=== PATIENT | female | born 1985 | race African-American/Black ===

== ENCOUNTER 2016-10-20 11:15 | Emergency (ER) | payer OTHER ==
[~2016-10-20] VITALS: Ht 180.3 cm; Wt 127.0 kg
[~2016-10-20 11:15] MED LIST: CLON0.1T PO; CLON0.2T PO; HYDR2AMP3 IJ; LISI40TA PO; METO25TA4 PO; METO25TA9 PO; OMEP40CA5 PO; ONDA4TAB10 PO; ONDA4TAB10 SL; TRAM50TA PO
[2016-10-20] MEDS ORDERED: IV NORMAL SALINE 1000ML BAG 1,000 ML IV ONE (12:30)
--- NOTE | 2016-10-20 12:44 | PHYS DOC ---
Past Medical History Past Medical History: GERD, Hypertension Additional Past Medical Histor: Cyclic vomiting-"Never diagnosed w/but that's what they have been saying." Past Surgical History: Cholecystectomy, Other Additional Past Surgical Histo: EGD. Additional Information: PT REPORTS 1 PPD Alcohol Use: None Drug Use: Marijuana Adult General Chief Complaint Chief Complaint: FLU SYMPTOM HPI HPI 30-year-old female who presents with significant cough and chest pain with deep breathing with mild shortness of breath as well. Patient does state she was seen Tuesday at [facility] for her symptoms and had blood work drawn but was ultimately sent home. Patient was not swabbed for the flu at that time. She states several days later now her symptoms have gotten worse and she has significant chest pain with deep breathing. She states she has history of cyclic vomiting syndrome as well as reflux disease. She denies any history of heart problems. Patient states she is a nonsmoker. She reports significant pain to her lower left rib margin with deep breathing and coughing. She has had little to eat or drink today because of her nausea. She denies any abdominal pain. Review of Systems Review of Systems Constitutional: Denies fever or chills [] Eyes: Denies change in visual acuity, redness, or eye pain [] HENT: Denies nasal congestion or sore throat [] Respiratory: Denies cough or shortness of breath [] Cardiovascular: No additional information not addressed in HPI [] GI: Denies abdominal pain, nausea, vomiting, bloody stools or diarrhea [] : Denies dysuria or hematuria [] Musculoskeletal: Denies back pain or joint pain [] Integument: Denies rash or skin lesions [] Neurologic: Denies headache, focal weakness or sensory changes [] Endocrine: Denies polyuria or polydipsia [] Current Medications Current Medications Current Medications Medications (Trade) Dose Ordered Sig/Benita Start Time Stop Time Status Last Admin Dose Admin Albuterol/ Ipratropium (Duoneb) 3 ml 1X ONCE 10/20/16 13:00 10/20/16 13:01 DC 10/20/16 12:52 3 ML Fentanyl Citrate (Fentanyl 2ml Vial) 50 mcg 1X ONCE 10/20/16 12:45 10/20/16 12:46 DC Ketorolac Tromethamine (Toradol Im) 60 mg 1X ONCE 10/20/16 14:15 10/20/16 14:16 DC 10/20/16 14:33 60 MG Ondansetron HCl (Zofran Odt) 4 mg 1X ONCE 10/20/16 14:15 10/20/16 14:16 DC 10/20/16 13:57 4 MG Ondansetron HCl (Zofran) 4 mg 1X ONCE 10/20/16 12:45 10/20/16 12:46 DC Oseltamivir Phosphate (Tamiflu) 75 mg 1X STAT 10/20/16 13:15 10/20/16 13:17 DC 10/20/16 13:49 75 MG Potassium Chloride (Klor-Con) 40 meq 1X ONCE 10/20/16 14:15 10/20/16 14:16 DC 10/20/16 14:32 40 MEQ Sodium Chloride (Iv Sodium Chloride 0.9% 1000ml Bag) 1,000 ml @ 1,000 mls/hr 1X ONCE 10/20/16 12:30 10/20/16 13:29 DC Allergies Allergies Allergies Coded Allergies Type Severity Reaction Last Updated Verified metoclopramide HCl Allergy Intermediate 01/21/14 Yes morphine Allergy Intermediate tolerates DILAUDID 12/19/15 Yes Physical Exam Physical Exam Constitutional: Well developed, well nourished, no acute distress, non-toxic appearance. [] HENT: Normocephalic, atraumatic, bilateral external ears normal, oropharynx moist, no oral exudates, nose normal. [] Eyes: PERRLA, EOMI, conjunctiva normal, no discharge. [] Neck: Normal range of motion, no tenderness, supple, no stridor. [] Cardiovascular:Heart rate regular rhythm, no murmur [] Lungs & Thorax: Bilateral breath sounds clear to auscultation [] Abdomen: Bowel sounds normal, soft, no tenderness, no masses, no pulsatile masses. [] Skin: Warm, dry, no erythema, no rash. [] Back: No tenderness, no CVA tenderness. [] Extremities: No tenderness, no cyanosis, no clubbing, ROM intact, no edema. [] Neurologic: Alert and oriented X 3, normal motor function, normal sensory function, no focal deficits noted. [] Psychologic: Affect normal, judgement normal, mood normal. [] Current Patient Data Vital Signs Vital Signs Date Time Temp Pulse Resp B/P Pulse Ox O2 Delivery O2 Flow Rate FiO2 10/20/16 12:53 Room Air 10/20/16 11:50 98.7 125 20 168/106 99 98.7 Lab Values Laboratory Tests Test 10/20/16 12:21 10/20/16 12:35 10/20/16 13:04 POC Urine HCG, Qualitative Hcg negative (Negative) Influenza Type A Antigen Positive (NEGATIVE) Influenza Type B Antigen Positive (NEGATIVE) White Blood Count 11.4x10^3/uL (4.0-11.0) H Red Blood Count 4.97x10^6/uL (3.50-5.40) Hemoglobin 16.1g/dL (12.0-15.5) H Hematocrit 47.5% (36.0-47.0) H Mean Corpuscular Volume 96fL (79-100) Mean Corpuscular Hemoglobin 32pg (25-35) Mean Corpuscular Hemoglobin Concent 34g/dL (31-37) Red Cell Distribution Width 13.1% (11.5-14.5) Platelet Count 311x10^3/uL (140-400) Neutrophils (%) (Auto) 67% (31-73) Lymphocytes (%) (Auto) 22% (24-48) L Monocytes (%) (Auto) 10% (0-9) H Eosinophils (%) (Auto) 0% (0-3) Basophils (%) (Auto) 1% (0-3) Neutrophils # (Auto) 7.7x10^3uL (1.8-7.7) Lymphocytes # (Auto) 2.4x10^3/uL (1.0-4.8) Monocytes # (Auto) 1.1x10^3/uL (0.0-1.1) Eosinophils # (Auto) 0.0x10^3/uL (0.0-0.7) Basophils # (Auto) 0.1x10^3/uL (0.0-0.2) Sodium Level 139mmol/L (136-145) Potassium Level 3.0mmol/L (3.5-5.1) L Chloride Level 101mmol/L (98-107) Carbon Dioxide Level 21mmol/L (21-32) Anion Gap 17 (6-14) H Blood Urea Nitrogen 9mg/dL (7-20) Creatinine 0.7mg/dL (0.6-1.0) Estimated GFR (Cockcroft-Gault) 117.3 Glucose Level 122mg/dL (70-99) H Calcium Level 9.6mg/dL (8.5-10.1) Laboratory Tests 10/20/16 13:04 Laboratory Tests 10/20/16 13:04 EKG EKG [] Radiology/Procedures Radiology/Procedures [] Course & Med Decision Making Course & Med Decision Making Pertinent Labs and Imaging studies reviewed. (See chart for details) 70-year-old female had flu swabs are positive for influenza a for which Tamiflu was ordered. She had a hypokalemia of 3.0 for which potassium was replaced. Multiple times at IV access were unable to be obtained. The patient is tolerating by mouth after Zofran. She was given an IM injection of Toradol. Upon my final reassessment the patient is in no acute distress and is able to tolerate oral fluids. She'll be safe to be discharged with close follow-up. I' ll be discharging him with a prescription for Tamiflu and Zofran and a brief course of pain control. Dragon Disclaimer Dragon Disclaimer This electronic medical record was generated, in whole or in part, using a voice recognition dictation system. Departure Departure Impression: Primary Impression: Vomiting Additional Impressions: Influenza A Myalgia Disposition: 01 HOME, SELF-CARE Admitting Physician: Other Condition: IMPROVED Referrals: UNKNOWN PCP NAME (PCP) Patient Instructions: Influenza A (H1N1), Nausea and Vomiting, [id number] Additional Instructions: Please follow up with your primary doctor in the next 2-3 days regarding your recent influenza virus. Take your tamiflu and medications as prescribed. Continue to drink plenty of fluids. Scripts Hydrocodone/Apap 5-325 ([place] 5-325 Tablet)1 Each Tablet1 Tab PO PRN Q6HRS PRN PAIN #10 TAB Ref 0 Prov:NAHUM ALAMO DO 10/20/16 Ondansetron Hcl (Zofran)4 Mg Tablet4 Mg PO BID PRN NAUSEA/VOMITING #14 TAB Prov:NAHUM ALAMO DO 10/20/16 Oseltamivir Phosphate (Tamiflu)75 Mg Ctjtoba69 Mg PO DAILY FLU #9 TAB Ref 0 Prov:NAHUM ALAMO DO 10/20/16 Problem Qualifiers NAHUM ALAMO DO Oct 20, 2016 12:44
[2016-10-20] MEDS ORDERED: FENTANYL PF 100 MCG/2 ML VIAL. IV ONE (12:45)
[2016-10-20] MEDS ORDERED: ONDANSETRON PF 4 MG/2 ML VIAL. IV ONE (12:45)
[2016-10-20] MEDS ORDERED: IPRATRPIUM/ALBUTEROL 0.5/2.5MG 3 ML NEBU. NEB ONE (13:00)
--- NOTE | 2016-10-20 13:00 | RAD ---
INDICATION: chest pain COMPARISON: 12/19/2015 FINDINGS: Single view of chest obtained. No definite focal airspace consolidation or edema. Cardiac silhouette is borderline prominent. No grossly displaced acute appearing fracture. IMPRESSION: No focal airspace consolidation or edema.
[2016-10-20 13:12] LABS: OBC FLU VALID
[2016-10-20] MEDS ORDERED: OSELTAMIVIR 75 MG CAPSULE PO STA (13:15)
[2016-10-20 13:22] LABS: BASO # 0.1 x10^3/uL (0.0-0.2); BASO % 1 % (0-3); EOS % 0 % (0-3); HEMATOCRIT 47.5 % (36.0-47.0); HEMOGLOBIN 16.1 g/dL (12.0-15.5); LYMPH # 2.4 x10^3/uL (1.0-4.8); LYMPH % 22 % (24-48); MEAN CORPUSCULAR HEMOGLOBIN 32 pg (25-35); MEAN CORPUSCULAR HGB CONC 34 g/dL (31-37); MEAN CORPUSCULAR VOLUME 96 fL (79-100); MONO % 10 % (0-9); NEUT % 67 % (31-73); PLATELET COUNT 311 x10^3/uL (140-400); RED BLOOD COUNT 4.97 x10^6/uL (3.50-5.40); RED CELL DISTRIBUTION WIDTH 13.1 % (11.5-14.5); WHITE BLOOD COUNT 11.4 x10^3/uL (4.0-11.0)
[2016-10-20 13:34] LABS: CALCIUM 9.6 mg/dL (8.5-10.1); CREATININE 0.7 mg/dL (0.6-1.0); GFR 117.3
[2016-10-20] MEDS ORDERED: ONDANSETRON ODT 4 MG TAB.RAPDIS ONE (13:55)
[2016-10-20] MEDS ORDERED: POTASSIUM CHLORIDE 20 MEQ TABLET.ER. PO ONE (14:15)
[2016-10-20] MEDS ORDERED: KETOROLAC TROMETHAMINE 60 MG/2 ML SYRINGE. IM ONE (14:15)
[2016-10-20] MEDS ORDERED: ONDANSETRON ODT 4 MG TAB.RAPDIS PO ONE (14:15)
[2016-10-20] MEDS ORDERED: OSEL75CA PO (14:41)
[2016-10-20] MEDS ORDERED: ONDA4TAB7 PO (14:41)
[2016-10-20] MEDS ORDERED: HYDR-971 PO (14:41)
[2016-10-20 14:48] VITALS: BP 193/122
== END 2016-10-20 15:00 | disposition home or self-care (01) ==
LOC: ER 11:15
DX: J09.X2 Influenza due to identified novel influenza A virus with other respiratory manifestations (principal); R11.10 Vomiting, unspecified; R07.1 Chest pain on breathing; I10 Essential (primary) hypertension; F12.10 Cannabis abuse, uncomplicated; F17.200 Nicotine dependence, unspecified, uncomplicated; K21.9 Gastro-esophageal reflux disease without esophagitis; Z90.49 Acquired absence of other specified parts of digestive tract; Z88.5 Allergy status to narcotic agent; Z88.8 Allergy status to other drugs, medicaments and biological substances
CPT/HCPCS: 36415; 71010; 80048; 81025; 85027; 87804; 94250; 94640; 96372; 99285; J1885; J7620; Q0162

== ENCOUNTER 2016-11-20 15:12 | Emergency (ER) | payer OTHER ==
[~2016-11-20] VITALS: Ht 177.8 cm; Wt 124.7 kg
[~2016-11-20 15:12] MED LIST changes: +HYDR-971 PO; +ONDA4TAB7 PO; +OSEL75CA PO
[2016-11-20] MEDS ORDERED: IV NORMAL SALINE 1000ML BAG 1,000 ML IV SCH (15:57)
[2016-11-20] MEDS ORDERED: PROCHLORPERAZINE 10 MG/2 ML VIAL. IV ONE (16:00)
[2016-11-20] MEDS ORDERED: DIPHENHYDRAMINE 50 MG/ML VIAL IVP ONE (16:00)
[2016-11-20] MEDS ORDERED: HYDROMORPHONE 2 MG/ML VIAL. IV ONE (16:00)
[2016-11-20 16:09] LABS: BILIRUBIN,URINE SMALL (NEG); GLUCOSE,URINE NEGATIVE (NEG); NITRITE,URINE NEGATIVE (NEG); PROTEIN,URINE 100 mg/dL (NEG-TRACE)
--- NOTE | 2016-11-20 16:10 | ED.ADGEN ---
Past Medical History Past Medical History: GERD, Hypertension, Seizure, Other Additional Past Medical Histor: Cyclic vomiting Past Surgical History: Cholecystectomy, Other Additional Past Surgical Histo: EGD. Additional Information: 1 PPD Alcohol Use: None Drug Use: Marijuana Adult General Chief Complaint Chief Complaint: HEADACHE HPI HPI Patient is a 31 year old female presents emergency department complaining of a frontal headache which she describes as "throbbing" as well as nausea and back pain. Patient states that she has had a headache for 3 days. She has tried Tylenol and ibuprofen without success. Patient states that she did make a phone call to her neurologist but has not heard back. She tells me that at least one week ago he started her on a new seizure medicine and had warned her that headaches to be a possible side effect. She has not taken any seizure medicine for 4 days. She denies any other trauma or injury. Review of Systems Review of Systems Constitutional: Denies fever or chills. [] Eyes: Denies change in visual acuity. [] HENT: Denies nasal congestion or sore throat. [] Respiratory: Denies cough or shortness of breath. [] Cardiovascular: Denies chest pain or edema. [] GI: Denies abdominal pain, nausea, vomiting, bloody stools or diarrhea. [] : Denies dysuria. [] Musculoskeletal: Denies back pain or joint pain. [] Integument: Denies rash. [] Neurologic: Denies headache, focal weakness or sensory changes. [] Endocrine: Denies polyuria or polydipsia. [] Lymphatic: Denies swollen glands. [] Psychiatric: Denies depression or anxiety. [] Current Medications Current Medications Current Medications Medications (Trade) Dose Ordered Sig/Benita Start Time Stop Time Status Last Admin Dose Admin Diphenhydramine HCl (Benadryl) 25 mg 1X ONCE 11/20/16 16:30 11/20/16 16:31 DC 11/20/16 17:02 25 MG Hydromorphone HCl (Dilaudid) 2 mg 1X ONCE 11/20/16 16:30 18 16:31 DC 11/20/16 17:09 2 MG Ondansetron HCl (Zofran Odt) 8 mg 1X ONCE 11/20/16 16:30 11/20/16 16:31 DC 11/20/16 17:15 8 MG Prochlorperazine Edisylate (Compazine) 10 mg 1X ONCE 11/20/16 16:30 11/20/16 16:31 DC 11/20/16 17:02 10 MG Sodium Chloride (Iv Sodium Chloride 0.9% 1000ml Bag) 1,000 ml @ 1,000 mls/hr Q1H 11/20/16 15:57 11/20/16 16:56 DC Allergies Allergies Allergies Coded Allergies Type Severity Reaction Last Updated Verified metoclopramide HCl Allergy Intermediate 01/21/14 Yes morphine Allergy Intermediate tolerates DILAUDID 12/19/15 Yes Physical Exam Physical Exam Constitutional: Well developed, well nourished, no acute distress, non-toxic appearance. [] HENT: Normocephalic, atraumatic, bilateral external ears normal, oropharynx moist, no oral exudates, nose normal. [] Eyes: PERRLA, EOMI, conjunctiva normal, no discharge. [] Neck: Normal range of motion, no tenderness, supple, no stridor. [] Cardiovascular:Heart rate regular rhythm, no murmur [] Lungs & Thorax: Bilateral breath sounds clear to auscultation [] Abdomen: Bowel sounds normal, soft, no tenderness, no masses, no pulsatile masses. [] Skin: Warm, dry, no erythema, no rash. [] Back: No tenderness, no CVA tenderness. [] Extremities: No tenderness, no cyanosis, no clubbing, ROM intact, no edema. [] Neurologic: Alert and oriented X 3, normal motor function, normal sensory function, no focal deficits noted. [] Psychologic: Affect normal, judgement normal, mood normal. [] Current Patient Data Vital Signs Vital Signs Date Time Temp Pulse Resp B/P Pulse Ox O2 Delivery O2 Flow Rate FiO2 11/20/16 17:09 17 97 Room Air 11/20/16 15:17 98.7 107 167/124 98.7 Lab Values Laboratory Tests Test 11/20/16 15:30 Urine Collection Type Void Urine Color Dk yellow Urine Clarity Turbid Urine pH 6.0 Urine Specific [place] >=1.030 Urine Protein 100mg/dL (NEG-TRACE) Urine Glucose (UA) Negativemg/dL (NEG) Urine Ketones (Stick) Tracemg/dL (NEG) Urine Blood Large (NEG) Urine Nitrite Negative (NEG) Urine Bilirubin Small (NEG) Urine Urobilinogen Dipstick 1.0mg/dL (0.2 mg/dL) Urine Leukocyte Esterase Small (NEG) Urine RBC Occ/HPF (0-2) Urine WBC 1-4/HPF (0-4) Urine Squamous Epithelial Cells Many/LPF Urine Bacteria Many/HPF (0-FEW) Urine Hyaline Casts Few/HPF Urine Mucus Marked/LPF Urine Opiates Screen Neg (NEG) Urine Methadone Screen Neg (NEG) Urine Barbiturates Neg (NEG) Urine Phencyclidine Screen Neg (NEG) Urine Amphetamine/Methamphetamine Neg (NEG) Urine Benzodiazepines Screen Neg (NEG) Urine Cocaine Screen Neg (NEG) Urine Cannabinoids Screen Pos (NEG) Urine Ethyl Alcohol Neg (NEG) EKG EKG [] Radiology/Procedures Radiology/Procedures [] Course & Med Decision Making Course & Med Decision Making Pertinent Labs and Imaging studies reviewed. (See chart for details) Initially, upon entering the room the patient was laying still and quiet with her eyes covered. Once she was aware that I was in the room and I began speaking to her she began to writhe around in the bed stating that the pain was unbearable. She states that as she starts to feel ill she quickly comes to the hospital. She states she comes to [place] and frequently but also has stopped at other hospitals. After multiple failed attempts at IV we did settle on using IM Dilaudid, Benadryl, Compazine, and Zofran ODT with good effect. The patient states that she feels significantly better and is thankful for help. She will be discharged home with follow-up directions as well as supportive care instructions. [] Dragon Disclaimer Dragon Disclaimer This electronic medical record was generated, in whole or in part, using a voice recognition dictation system. TU MAYFIELD MD Nov 20, 2016 16:09
[2016-11-20 16:18] LABS: BACTERIA,URINE MANY /HPF (0-FEW); RBC,URINE OCC /HPF (0-2); SQUAMOUS EPITHELIAL CELL,UR MANY /LPF
[2016-11-20 16:22] LABS: BARBITURATES NEG (NEG); BENZODIAZEPINES NEG (NEG); CANNABINOIDS POS (NEG); COCAINE NEG (NEG); METHADONE NEG (NEG); OPIATES NEG (NEG); PHENCYCLIDINE NEG (NEG)
[2016-11-20 16:24] LABS: ETHANOL, URINE NEG (NEG)
[2016-11-20] MEDS ORDERED: DIPHENHYDRAMINE 50 MG/ML VIAL IM ONE (16:30)
[2016-11-20] MEDS ORDERED: ONDANSETRON ODT 4 MG TAB.RAPDIS PO ONE (16:30)
[2016-11-20] MEDS ORDERED: HYDROMORPHONE 2 MG/ML VIAL. IM ONE (16:30)
[2016-11-20] MEDS ORDERED: PROCHLORPERAZINE 10 MG/2 ML VIAL. IM ONE (16:30)
[2016-11-20] MEDS ORDERED: ONDA4TAB10 SL (18:25)
[2016-11-20] MEDS ORDERED: HYDR-971 PO (18:25)
[2016-11-20 18:30] VITALS: BP 151/100
== END 2016-11-20 18:35 | disposition home or self-care (01) ==
LOC: ER 15:18
DX: R51 Headache (principal); R11.10 Vomiting, unspecified; M54.9 Dorsalgia, unspecified; K21.9 Gastro-esophageal reflux disease without esophagitis; I10 Essential (primary) hypertension; Z90.49 Acquired absence of other specified parts of digestive tract; F17.200 Nicotine dependence, unspecified, uncomplicated; F12.10 Cannabis abuse, uncomplicated; Z88.5 Allergy status to narcotic agent; Z88.8 Allergy status to other drugs, medicaments and biological substances
CPT/HCPCS: 80305; 81001; 87086; 96372; 99284; J0780; J1170; J1200; Q0162; G0481

== ENCOUNTER 2017-02-04 14:00 | Inpatient (IN) | payer OTHER ==
[~2017-02-04] VITALS: Ht 180.3 cm; Wt 124.7 kg
[2017-02-04] MEDS ORDERED: IV NORMAL SALINE 1000ML BAG 1,000 ML IV ONE (14:30)
[2017-02-04] MEDS ORDERED: LABETALOL 20 MG/4 ML DISP.SYRIN. IVP ONE ×2 (14:30→15:30)
[2017-02-04] MEDS ORDERED: oxyCODONE/APAP 5/325 1 TAB TABLET PO ONE (14:30)
[2017-02-04] MEDS ORDERED: PROMETHAZINE IM 25 MG/ML VIAL IM ONE (14:30)
[2017-02-04] MEDS ORDERED: HALOPERIDOL LACTATE 5 MG/ML VIAL. IVP ONE (14:30)
[2017-02-04 14:35] LABS: BASO # 0.1 x10^3/uL (0.0-0.2); BASO % 1 % (0-3); EOS % 0 % (0-3); HEMATOCRIT 45.8 % (36.0-47.0); HEMOGLOBIN 15.7 g/dL (12.0-15.5); LYMPH # 4.6 x10^3/uL (1.0-4.8); LYMPH % 35 % (24-48); MEAN CORPUSCULAR HEMOGLOBIN 34 pg (25-35); MEAN CORPUSCULAR HGB CONC 34 g/dL (31-37); MEAN CORPUSCULAR VOLUME 98 fL (79-100); MONO % 8 % (0-9); NEUT % 56 % (31-73); PLATELET COUNT 279 x10^3/uL (140-400); RED BLOOD COUNT 4.67 x10^6/uL (3.50-5.40); RED CELL DISTRIBUTION WIDTH 13.1 % (11.5-14.5); WHITE BLOOD COUNT 13.3 x10^3/uL (4.0-11.0)
[2017-02-04 14:36] LABS: BILIRUBIN,URINE SMALL (NEG); GLUCOSE,URINE NEGATIVE (NEG); NITRITE,URINE NEGATIVE (NEG); PH,URINE 6.5; PROTEIN,URINE 30 mg/dL (NEG-TRACE)
[2017-02-04 15:05] LABS: ALBUMIN 4.4 g/dL (3.4-5.0); ALBUMIN/GLOBULIN RATIO 1.1 (1.0-1.7); CALCIUM 9.9 mg/dL (8.5-10.1); CREATININE 0.8 mg/dL (0.6-1.0); MAGNESIUM 2.1 mg/dL (1.8-2.4); TOTAL BILIRUBIN 1.1 mg/dL (0.2-1.0); TOTAL PROTEIN 8.3 g/dL (6.4-8.2)
[2017-02-04 15:07] LABS: BARBITURATES NEG (NEG); BENZODIAZEPINES NEG (NEG); CANNABINOIDS POS (NEG); COCAINE NEG (NEG); METHADONE NEG (NEG); OPIATES NEG (NEG); PHENCYCLIDINE NEG (NEG)
[2017-02-04 15:07] LABS: POTASSIUM 2.7 mmol/L (3.5-5.1)
[2017-02-04 15:15] LABS: RBC,URINE 0 /HPF (0-2)
[2017-02-04] MEDS ORDERED: POTASSIUM CL 20MEQ D5-0.45NACL 1,000 ML IV ONE (15:15)
[2017-02-04] MEDS ORDERED: POTASSIUM CHLORIDE 20 MEQ TABLET.ER. PO ONE (15:15)
[2017-02-04 15:18] LABS: BACTERIA,URINE FEW /HPF (0-FEW); SQUAMOUS EPITHELIAL CELL,UR FEW /LPF
[2017-02-04] MEDS ORDERED: LOSARTAN POTASSIUM 50 MG TABLET. PO STA (15:44)
[2017-02-04] MEDS ORDERED: amLODIPine BESYLATE 5 MG TABLET PO ONE (15:45)
[2017-02-04] MEDS ORDERED: ONDANSETRON PF 4 MG/2 ML VIAL. IV PRN ×2 (15:45→16:31)
[2017-02-04] MEDS ORDERED: cloNIDine HCL 0.1 MG TABLET PO ONE (16:00)
--- NOTE | 2017-02-04 16:40 | PDOC1 ---
History and Physical Date of Admission Date of Admission DATE: 02/04/17 TIME: 16:34 Identification/Chief Complaint Chief Complaint vomiting, abd pain Problems: Source Source: Caregiver, Chart review, Patient History of Present Illness History of Present Illness 31 y.o obese AA female known cyclic vomiter, used to see [address] - but last seen 2014 (fired), and needs to find new PCP per pt account,. Today, onset of another cyclic vomiting attack, She admits she gets attacks if she does not take her nausea meds, she could not tell me what kind, BP systolic 200s, also tells me did not take her BP meds (all in a box) and she could not find that box. GAve labetolol at ER, awaiting response, K critically low 2 plus, CRea ok, NO diarrhea, non diabetic, Requests narcs for pain Past Medical History Cardiovascular: HTN Pulmonary: Asthma GI: GERD, Other Endocrine: Other Past Surgical History Past Surgical History: Cholecystectomy, Tonsillectomy Family History Family History: No Significant (reviewed) Social History Smoke: No ALCOHOL: none Drugs: None Current Medications Current Medications Current Medications Sodium Chloride 1,000 ml @ 1,000 mls/hr 1X ONCE IV Last administered on 14:33; Start 02/04/17 at 14:30; Stop 02/04/17 at 15:29; Status DC Haloperidol Lactate (Haldol) 3 mg 1X ONCE IVP Last administered on 02/04/17 14 :34; Start 02/04/17 at 14:30; Stop 02/04/17 at 14:31; Status DC Promethazine HCl (Phenergan Im) 25 mg 1X ONCE IM Last administered on 14:32; Start 02/04/17 at 14:30; Stop 02/04/17 at 14:31; Status DC Labetalol HCl (Normodyne) 20 mg 1X ONCE IVP Last administered on 02/04/17 14: 36; Start 02/04/17 at 14:30; Stop 02/04/17 at 14:31; Status DC Oxycodone/ Acetaminophen (Percocet 5/325) 2 tab 1X ONCE PO Last administered on 02/04/17 14:48; Start 02/04/17 at 14:30; Stop 02/04/17 at 14:31; Status DC Potassium Chloride (Klor-Con) 40 meq 1X ONCE PO Last administered on 02/04/17 15:24; Start 02/04/17 at 15:15; Stop 02/04/17 at 15:16; Status DC Potassium Chloride/Dextrose/ Sod Cl 1,000 ml @ 500 mls/hr 1X ONCE IV Last administered on 02/04/17 15:25; Start 02/04/17 at 15:15; Stop 02/04/17 at 17:14 Labetalol HCl (Normodyne) 20 mg 1X ONCE IVP Last administered on 02/04/17 15: 23; Start 02/04/17 at 15:30; Stop 02/04/17 at 15:31; Status DC Ondansetron HCl (Zofran) 4 mg PRN Q8HRS PRN IV NAUSEA/VOMITING; Start 02/04/17 at 15:45; Stop 02/05/17 at 15:44 Clonidine HCl (Catapres) 0.2 mg 1X ONCE PO Last administered on 02/04/17 16:20 ; Start 02/04/17 at 16:00; Stop 02/04/17 at 16:01; Status DC Losartan Potassium (Cozaar) 50 mg 1X STAT PO Last administered on 02/04/17 16: 20; Start 02/04/17 at 15:44; Stop 02/04/17 at 15:52; Status DC Amlodipine Besylate (Norvasc) 10 mg 1X ONCE PO Last administered on 02/04/17 16:21; Start 02/04/17 at 15:45; Stop 02/04/17 at 15:52; Status DC Active Scripts Active Zofran Odt (Ondansetron) 4 Mg Tab.rapdis 1 Tab SL Q8HRS PRN [place] 5-325 Tablet (Acetaminophen/Hydrocodone Bitart) 1 Each Tablet 1-2 Tab PO Q6HRS PRN [place] 5-325 Tablet (Acetaminophen/Hydrocodone Bitart) 1 Each Tablet 1 Tab PO PRN Q6HRS PRN Zofran (Ondansetron Hcl) 4 Mg Tablet 4 Mg PO BID PRN Tamiflu (Oseltamivir Phosphate) 75 Mg Capsule 75 Mg PO DAILY Zofran Odt (Ondansetron) 4 Mg Tab.rapdis 1 Tab SL Q8HRS Zofran Odt (Ondansetron) 4 Mg Tab.rapdis 4 Mg PO Q8HRS PRN Reported Clonidine Hcl 0.1 Mg Tablet 0.1 Mg PO DAILY Omeprazole 40 Mg Capsule.dr 40 Mg PO DAILY Lisinopril 40 Mg Tablet 40 Mg PO DAILY Allergies Allergies: Coded Allergies: metoclopramide HCl (Verified Allergy, Intermediate, 01/21/14) morphine (Verified Allergy, Intermediate, tolerates DILAUDID, 12/19/15) ROS General: No: Chills, Night Sweats, Fatigue, Malaise, Appetite, Other PSYCHOLOGICAL ROS: No: Anxiety, Behavioral Disorder, Concentration difficultie , Decreased libido, Depression, Disorientation, Hallucinations, Hostility, Irritablity, Memory difficulties, Mood Swings, Obsessive thoughts, Physical abuse, Sexual abuse, Sleep disturbances, Suicidal ideation, Other Eyes: No Blurry vision, No Decreased vision, No Double vision, No Dry eyes, No Excessive tearing, No Eye Pain, No Itchy Eyes, No Loss of vision, No Photophobia , No Scotomata, No Uses contacts, No Uses glasses, No Other HEENT: No: Heacaches, Visual Changes, Hearing change, Nasal congestion, Nasal discharge, Oral lesions, Sinus pain, Sore Throat, Epistaxis, Sneezing, Snoring, Tinnitus, Vertigo, Vocal changes, Other ALLERGY AND IMMUNOLOGY: No: Hives, Insect Bite Sensitivity, Itchy/Watery Eyes, Nasal Congestion, Post Nasal Drip, Seasonal Allergies, Other Hematological and Lymphatic: No: Bleeding Problems, Blood Clots, Blood Transfusions, Brusing, Night Sweats, Pallor, Swollen Lymph Nodes, Other ENDOCRINE: No: Breast Changes, Galactorrhea, Hair Pattern Changes, Hot Flashes , Malaise/lethargy, Mood Swings, Palpitations, Polydipsia/polyuria, Skin Changes , Temperature Intolerance, Unexpected Weight Changes, Other Breast: No New/Changing Breast Lumps, No Nipple changes, No Nipple discharge, No Other Respiratory: No: Cough, Hemoptysis, Orthopnea, Pleuritic Pain, Shortness of breath, SOB with excertion, Sputum Changes, Stridor, Tachypnea, Wheezing, Other Cardiovascular: No Chest Pain, No Palpitations, No Orthopnea, No Paroxysmal Noc. Dyspnea, No Edema, No Lt Headedness, No Other Gastrointestinal: Yes Nausea, Yes Vomiting, Yes Abdominal Pain Genitourinary: No Dysuria, No Frequency, No Incontinence, No Hematuria, No Retention, No Discharge, No Urgency, No Pain, No Flank Pain, No Other, No , No , No , No , No , No , No Musculoskeletal: No Gait Disturbance, No Joint Pain, No Joint Stiffness, No Joint Swelling, No Muscle Pain, No Muscular Weakness, No Pain In:, No Swelling In:, No Other Neurological: No Behavorial Changes, No Bowel/Bladder ControlChng, No Confusion , No Dizziness, No Gait Disturbance, No Headaches, No Impaired Coord/balance, No Memory Loss, No Numbness/Tingling, No Seizures, No Speech Problems, No Tremors, No Visual Changes, No Weakness, No Other Skin: No Dry Skin, No Eczema, No Hair Changes, No Lumps, No Mole Changes, No Mottling, No Nail Changes, No Pruritus, No Rash, No Skin Lesion Changes, No Other, No Acne Physical Exam General: Alert, Oriented X3, Cooperative, No acute distress, moderate distress , Other (clutching her stomach, bending forward) HEENT: Atraumatic, PERRLA, EOMI Lungs: Clear to auscultation, Normal air movement Heart: S1S2, no murmurs Cardiovascular: S1, S2 Breasts: Normal Abdomen: Soft, Other (tenderness, jumps off her bed on mild palpation epigastric area - (symptom magnification)) Rectal Exam: not examined PELVIC: Nml ext genitalia Extremities: No clubbing, No cyanosis, No edema, Normal pulses, No tenderness/ swelling Skin: No rashes, No breakdown, No significant lesion Neuro: Normal gait, Normal speech, Strength at 5/5 X4 ext, Normal tone, Sensation intact, Cranial nerves 3-12 NL, Reflexes 2+ Psych/Mental Status: Mental status NL, Mood NL Vitals Vitals Vital Signs Date Time Temp Pulse Resp B/P (MAP) Pulse Ox O2 Delivery O2 Flow Rate FiO2 02/04/17 16:32 65 18 220/133 (162) 98 Room Air 02/04/17 14:02 99.3 99.3 Labs Labs Laboratory Tests Test 02/04/17 13:21 02/04/17 14:05 02/04/17 14:25 Bedside Urine HCG, Qualitative Hcg negative (Negative) Urine Collection Type Unknown Urine Color Carito Urine Clarity Clear Urine pH 6.5 Urine Specific [place] >=1.030 Urine Protein 30 mg/dL (NEG-TRACE) Urine Glucose (UA) Negative mg/dL (NEG) Urine Ketones (Stick) 15 mg/dL (NEG) Urine Blood Negative (NEG) Urine Nitrite Negative (NEG) Urine Bilirubin Small (NEG) Urine Urobilinogen Dipstick 1.0 mg/dL (0.2 mg/dL) Urine Leukocyte Esterase Trace (NEG) Urine RBC 0 /HPF (0-2) Urine WBC 1-4 /HPF (0-4) Urine Squamous Epithelial Cells Few /LPF Urine Bacteria Few /HPF (0-FEW) Urine Mucus Mod /LPF Urine Opiates Screen Neg (NEG) Urine Methadone Screen Neg (NEG) Urine Barbiturates Neg (NEG) Urine Phencyclidine Screen Neg (NEG) Urine Amphetamine/Methamphetamine Neg (NEG) Urine Benzodiazepines Screen Neg (NEG) Urine Cocaine Screen Neg (NEG) Urine Cannabinoids Screen Pos (NEG) Urine Ethyl Alcohol Neg (NEG) White Blood Count 13.3 x10^3/uL (4.0-11.0) Red Blood Count 4.67 x10^6/uL (3.50-5.40) Hemoglobin 15.7 g/dL (12.0-15.5) Hematocrit 45.8 % (36.0-47.0) Mean Corpuscular Volume 98 fL (79-100) Mean Corpuscular Hemoglobin 34 pg (25-35) Mean Corpuscular Hemoglobin Concent 34 g/dL (31-37) Red Cell Distribution Width 13.1 % (11.5-14.5) Platelet Count 279 x10^3/uL (140-400) Neutrophils (%) (Auto) 56 % (31-73) Lymphocytes (%) (Auto) 35 % (24-48) Monocytes (%) (Auto) 8 % (0-9) Eosinophils (%) (Auto) 0 % (0-3) Basophils (%) (Auto) 1 % (0-3) Neutrophils # (Auto) 7.5 x10^3uL (1.8-7.7) Lymphocytes # (Auto) 4.6 x10^3/uL (1.0-4.8) Monocytes # (Auto) 1.0 x10^3/uL (0.0-1.1) Eosinophils # (Auto) 0.1 x10^3/uL (0.0-0.7) Basophils # (Auto) 0.1 x10^3/uL (0.0-0.2) Sodium Level 136 mmol/L (136-145) Potassium Level 2.7 mmol/L (3.5-5.1) Chloride Level 99 mmol/L (98-107) Carbon Dioxide Level 21 mmol/L (21-32) Anion Gap 16 (6-14) Blood Urea Nitrogen 8 mg/dL (7-20) Creatinine 0.8 mg/dL (0.6-1.0) Estimated GFR (Cockcroft-Gault) 100.0 BUN/Creatinine Ratio 10 (6-20) Glucose Level 109 mg/dL (70-99) Calcium Level 9.9 mg/dL (8.5-10.1) Magnesium Level 2.1 mg/dL (1.8-2.4) Total Bilirubin 1.1 mg/dL (0.2-1.0) Aspartate Amino Transf (AST/SGOT) 18 U/L (15-37) Alanine Aminotransferase (ALT/SGPT) 27 U/L (14-59) Alkaline Phosphatase 78 U/L (46-116) Creatine Kinase 135 U/L (26-192) Total Protein 8.3 g/dL (6.4-8.2) Albumin 4.4 g/dL (3.4-5.0) Albumin/Globulin Ratio 1.1 (1.0-1.7) Lipase 113 U/L (73-393) Ethyl Alcohol Level < 10 mg/dL (0-10) Laboratory Tests Test 02/04/17 13:21 02/04/17 14:05 02/04/17 14:25 Bedside Urine HCG, Qualitative Hcg negative (Negative) Urine Collection Type Unknown Urine Color Carito Urine Clarity Clear Urine pH 6.5 Urine Specific [place] >=1.030 Urine Protein 30 mg/dL (NEG-TRACE) Urine Glucose (UA) Negative mg/dL (NEG) Urine Ketones (Stick) 15 mg/dL (NEG) Urine Blood Negative (NEG) Urine Nitrite Negative (NEG) Urine Bilirubin Small (NEG) Urine Urobilinogen Dipstick 1.0 mg/dL (0.2 mg/dL) Urine Leukocyte Esterase Trace (NEG) Urine RBC 0 /HPF (0-2) Urine WBC 1-4 /HPF (0-4) Urine Squamous Epithelial Cells Few /LPF Urine Bacteria Few /HPF (0-FEW) Urine Mucus Mod /LPF Urine Opiates Screen Neg (NEG) Urine Methadone Screen Neg (NEG) Urine Barbiturates Neg (NEG) Urine Phencyclidine Screen Neg (NEG) Urine Amphetamine/Methamphetamine Neg (NEG) Urine Benzodiazepines Screen Neg (NEG) Urine Cocaine Screen Neg (NEG) Urine Cannabinoids Screen Pos (NEG) Urine Ethyl Alcohol Neg (NEG) White Blood Count 13.3 x10^3/uL (4.0-11.0) Red Blood Count 4.67 x10^6/uL (3.50-5.40) Hemoglobin 15.7 g/dL (12.0-15.5) Hematocrit 45.8 % (36.0-47.0) Mean Corpuscular Volume 98 fL (79-100) Mean Corpuscular Hemoglobin 34 pg (25-35) Mean Corpuscular Hemoglobin Concent 34 g/dL (31-37) Red Cell Distribution Width 13.1 % (11.5-14.5) Platelet Count 279 x10^3/uL (140-400) Neutrophils (%) (Auto) 56 % (31-73) Lymphocytes (%) (Auto) 35 % (24-48) Monocytes (%) (Auto) 8 % (0-9) Eosinophils (%) (Auto) 0 % (0-3) Basophils (%) (Auto) 1 % (0-3) Neutrophils # (Auto) 7.5 x10^3uL (1.8-7.7) Lymphocytes # (Auto) 4.6 x10^3/uL (1.0-4.8) Monocytes # (Auto) 1.0 x10^3/uL (0.0-1.1) Eosinophils # (Auto) 0.1 x10^3/uL (0.0-0.7) Basophils # (Auto) 0.1 x10^3/uL (0.0-0.2) Sodium Level 136 mmol/L (136-145) Potassium Level 2.7 mmol/L (3.5-5.1) Chloride Level 99 mmol/L (98-107) Carbon Dioxide Level 21 mmol/L (21-32) Anion Gap 16 (6-14) Blood Urea Nitrogen 8 mg/dL (7-20) Creatinine 0.8 mg/dL (0.6-1.0) Estimated GFR (Cockcroft-Gault) 100.0 BUN/Creatinine Ratio 10 (6-20) Glucose Level 109 mg/dL (70-99) Calcium Level 9.9 mg/dL (8.5-10.1) Magnesium Level 2.1 mg/dL (1.8-2.4) Total Bilirubin 1.1 mg/dL (0.2-1.0) Aspartate Amino Transf (AST/SGOT) 18 U/L (15-37) Alanine Aminotransferase (ALT/SGPT) 27 U/L (14-59) Alkaline Phosphatase 78 U/L (46-116) Creatine Kinase 135 U/L (26-192) Total Protein 8.3 g/dL (6.4-8.2) Albumin 4.4 g/dL (3.4-5.0) Albumin/Globulin Ratio 1.1 (1.0-1.7) Lipase 113 U/L (73-393) Ethyl Alcohol Level < 10 mg/dL (0-10) VTE Prophylaxis Ordered VTE Prophylaxis Devices: Yes VTE Pharmacological Prophylaxi: Yes Assessment/Plan Assessment/Plan 1. Cyclic vomiting episode,acute attack with CRITICAL HYPOKALEMIA 2. HTN malignant POA 3. Abdominal Pain 4. Obesity 5. NArcotic seeking behavior Plan: Admit Replace K K containing IVF Recheck K carley Include mag Liquid diet ADAT Resume home meds LAbetolol prn IF bP does not go down in the next few hrs will need gtt as this is HTN emergency Likely BP will go down with control of emesis and resumption of anti hypertensives Seen at ER Jaiden BARRIOS MD and pt SHANNEN MCKENNA MD Feb 04, 2017 16:40
[2017-02-04] MEDS ORDERED: ZOLPIDEM 5 MG TABLET. PO PRN (16:45)
[2017-02-04] MEDS ORDERED: IV NORMAL SALINE 1000ML BAG 1,000 ML IV SCH (16:45)
[2017-02-04] MEDS ORDERED: PROCHLORPERAZINE 10 MG/2 ML VIAL. IV PRN (16:45)
[2017-02-04] MEDS ORDERED: ONDANSETRON ODT 4 MG TAB.RAPDIS. PO PRN (16:45)
[2017-02-04] MEDS ORDERED: CALCIUM CARBONATE 500 MG TAB.CHEW PO PRN (16:45)
[2017-02-04] MEDS ORDERED: HYDROmorphone 2 MG/ML VIAL IVP PRN (16:45)
[2017-02-04] MEDS ORDERED: LABETALOL 20 MG/4 ML DISP.SYRIN. IVP PRN (16:45)
[2017-02-04] MEDS ORDERED: oxyCODONE/APAP 5/325 1 TAB TABLET PO PRN (16:45)
[2017-02-04] MEDS ORDERED: fentaNYL PF VIAL 100 MCG/2 ML VIAL IV PRN (16:45)
[2017-02-04] MEDS ORDERED: HYDROcodone/APAP 5/325MG 1 TAB TABLET PO PRN ×2 (16:45)
--- NOTE | 2017-02-04 16:46 | PHYS DOC ---
Past Medical History Past Medical History: GERD, Hypertension, Seizure, Other Additional Past Medical Histor: Cyclic vomiting Past Surgical History: Cholecystectomy, Other Additional Past Surgical Histo: EGD. Alcohol Use: None Drug Use: Marijuana Adult General Chief Complaint Chief Complaint: ABDOMINAL PAIN HPI HPI Patient is a 31 year old female presenting to the emergency department for evaluation of intractable nausea vomiting abdominal pain that has been going on for at least 1 week if she says she has been in and out of hospitals for the past 2 weeks. Recent hospital visit was at [facility] 2 days ago. She says that the last time that she smoked marijuana was 2 weeks ago. She says that she has a history of cyclic vomiting syndrome. Review of Systems Review of Systems Constitutional: Denies fever or chills [] Eyes: Denies change in visual acuity, redness, or eye pain [] HENT: Denies nasal congestion or sore throat [] Respiratory: Denies cough or shortness of breath [] Cardiovascular: No additional information not addressed in HPI [] GI: + abdominal pain, nausea, vomiting. No bloody stools or diarrhea [] : Denies dysuria or hematuria [] Musculoskeletal: Denies back pain or joint pain [] Integument: Denies rash or skin lesions [] Neurologic: Denies headache, focal weakness or sensory changes [] Current Medications Current Medications Current Medications Medications (Trade) Dose Ordered Sig/Benita Start Time Stop Time Status Last Admin Dose Admin Haloperidol Lactate (Haldol) 3 mg 1X ONCE 02/04/17 14:30 02/04/17 14:31 DC 02/04/17 14:34 3 MG Labetalol HCl (Normodyne) 20 mg 1X ONCE 02/04/17 15:30 02/04/17 15:31 DC 02/04/17 15:23 20 MG Oxycodone/ Acetaminophen (Percocet 5/325) 2 tab 1X ONCE 02/04/17 14:30 02/04/17 14:31 DC 02/04/17 14:48 2 TAB Potassium Chloride/Dextrose/ Sod Cl 1,000 ml @ 500 mls/hr 1X ONCE 02/04/17 15:15 02/04/17 17:14 02/04/17 15:25 500 MLS/HR Potassium Chloride (Klor-Con) 40 meq 1X ONCE 02/04/17 15:15 02/04/17 15:16 DC 02/04/17 15:24 40 MEQ Promethazine HCl (Phenergan Im) 25 mg 1X ONCE 02/04/17 14:30 02/04/17 14:31 DC 02/04/17 14:32 25 MG Sodium Chloride 1,000 ml @ 1,000 mls/hr 1X ONCE 02/04/17 14:30 02/04/17 15:29 DC 02/04/17 14:33 1,000 MLS/HR Allergies Allergies Allergies Coded Allergies Type Severity Reaction Last Updated Verified metoclopramide HCl Allergy Intermediate 01/21/14 Yes morphine Allergy Intermediate tolerates DILAUDID 12/19/15 Yes Physical Exam Physical Exam Constitutional: Well developed, well nourished, no acute distress, non-toxic appearance. [] HENT: Normocephalic, atraumatic, bilateral external ears normal, oropharynx moist, no oral exudates, nose normal. [] Eyes: PERRLA, EOMI, conjunctiva normal, no discharge. [] Neck: Normal range of motion, no tenderness, supple, no stridor. [] Cardiovascular:Heart rate regular rhythm, no murmur [] Lungs & Thorax: Bilateral breath sounds clear to auscultation [] Abdomen: Bowel sounds normal, soft, no tenderness, no masses, no pulsatile masses. [] Skin: Warm, dry, no erythema, no rash. [] Back: No tenderness, no CVA tenderness. [] Extremities: No tenderness, no cyanosis, no clubbing, ROM intact, no edema. [] Neurologic: Alert and oriented X 3, normal motor function, normal sensory function, no focal deficits noted. [] Current Patient Data Vital Signs Vital Signs Date Time Temp Pulse Resp B/P (MAP) Pulse Ox O2 Delivery O2 Flow Rate FiO2 02/04/17 15:23 83 230/115 02/04/17 15:18 11 95 02/04/17 14:46 Room Air 02/04/17 14:02 99.3 99.3 Lab Values Laboratory Tests Test 02/04/17 13:21 02/04/17 14:05 02/04/17 14:25 POC Urine HCG, Qualitative Hcg negative (Negative) Urine Collection Type Unknown Urine Color Carito Urine Clarity Clear Urine pH 6.5 Urine Specific [place] >=1.030 Urine Protein 30 mg/dL (NEG-TRACE) Urine Glucose (UA) Negative mg/dL (NEG) Urine Ketones (Stick) 15 mg/dL (NEG) Urine Blood Negative (NEG) Urine Nitrite Negative (NEG) Urine Bilirubin Small (NEG) Urine Urobilinogen Dipstick 1.0 mg/dL (0.2 mg/dL) Urine Leukocyte Esterase Trace (NEG) Urine RBC 0 /HPF (0-2) Urine WBC 1-4 /HPF (0-4) Urine Squamous Epithelial Cells Few /LPF Urine Bacteria Few /HPF (0-FEW) Urine Mucus Mod /LPF Urine Opiates Screen Neg (NEG) Urine Methadone Screen Neg (NEG) Urine Barbiturates Neg (NEG) Urine Phencyclidine Screen Neg (NEG) Urine Amphetamine/Methamphetamine Neg (NEG) Urine Benzodiazepines Screen Neg (NEG) Urine Cocaine Screen Neg (NEG) Urine Cannabinoids Screen Pos (NEG) Urine Ethyl Alcohol Neg (NEG) White Blood Count 13.3 x10^3/uL (4.0-11.0) H Red Blood Count 4.67 x10^6/uL (3.50-5.40) Hemoglobin 15.7 g/dL (12.0-15.5) H Hematocrit 45.8 % (36.0-47.0) Mean Corpuscular Volume 98 fL (79-100) Mean Corpuscular Hemoglobin 34 pg (25-35) Mean Corpuscular Hemoglobin Concent 34 g/dL (31-37) Red Cell Distribution Width 13.1 % (11.5-14.5) Platelet Count 279 x10^3/uL (140-400) Neutrophils (%) (Auto) 56 % (31-73) Lymphocytes (%) (Auto) 35 % (24-48) Monocytes (%) (Auto) 8 % (0-9) Eosinophils (%) (Auto) 0 % (0-3) Basophils (%) (Auto) 1 % (0-3) Neutrophils # (Auto) 7.5 x10^3uL (1.8-7.7) Lymphocytes # (Auto) 4.6 x10^3/uL (1.0-4.8) Monocytes # (Auto) 1.0 x10^3/uL (0.0-1.1) Eosinophils # (Auto) 0.1 x10^3/uL (0.0-0.7) Basophils # (Auto) 0.1 x10^3/uL (0.0-0.2) Sodium Level 136 mmol/L (136-145) Potassium Level 2.7 mmol/L (3.5-5.1) *L Chloride Level 99 mmol/L (98-107) Carbon Dioxide Level 21 mmol/L (21-32) Anion Gap 16 (6-14) H Blood Urea Nitrogen 8 mg/dL (7-20) Creatinine 0.8 mg/dL (0.6-1.0) Estimated GFR (Cockcroft-Gault) 100.0 BUN/Creatinine Ratio 10 (6-20) Glucose Level 109 mg/dL (70-99) H Calcium Level 9.9 mg/dL (8.5-10.1) Magnesium Level 2.1 mg/dL (1.8-2.4) Total Bilirubin 1.1 mg/dL (0.2-1.0) H Aspartate Amino Transferase (AST) 18 U/L (15-37) Alanine Aminotransferase (ALT) 27 U/L (14-59) Alkaline Phosphatase 78 U/L (46-116) Creatine Kinase 135 U/L (26-192) Total Protein 8.3 g/dL (6.4-8.2) H Albumin 4.4 g/dL (3.4-5.0) Albumin/Globulin Ratio 1.1 (1.0-1.7) Lipase 113 U/L (73-393) Ethyl Alcohol Level < 10 mg/dL (0-10) Laboratory Tests 02/04/17 14:25 Laboratory Tests 02/04/17 14:25 EKG EKG [] Radiology/Procedures Radiology/Procedures [] Course & Med Decision Making Course & Med Decision Making Patient says that her pain and nausea is still present or she will be admitted for further IV hydration and nausea control. Dragon Disclaimer Dragon Disclaimer This electronic medical record was generated, in whole or in part, using a voice recognition dictation system. Departure Departure Impression: Primary Impression: Nausea and vomiting Additional Impressions: Malignant hypertension Abdominal pain Hypokalemia Disposition: ADMITTED INPATIENT Admitting Physician: Janeth Montoya Condition: STABLE Referrals: UNKNOWN PCP NAME (PCP) Problem Qualifiers Primary Impression: Nausea and vomiting Vomiting type: cyclical vomiting Vomiting Intractability: intractable Qualified Codes: G43.A1 - Cyclical vomiting, intractable JESSIE,TU M DO Feb 04, 2017 16:46
[2017-02-04] MEDS: cloNIDine HCL 0.1 MG TABLET PO SCH (18:04)
[2017-02-04] MEDS: LISINOPRIL 40 MG TABLET. PO SCH (18:05)
--- NOTE | 2017-02-04 19:11 | ACF ---
Admission Forms Criteria VOMITING Clinical Indications for Admission to Inpatient Care ( Place 'X' for any and all applicable criteria): Admission is indicated for 1 or more of the following(1)(2)(3): [ ]I. Complete or partial gastrointestinal obstruction [ ]II. Vomiting due to significant metabolic derangement (eg, severe hypercalcemia, diabetic ketoacidosis) [ ]III. Other cause of vomiting requiring hospitalization (eg, poisoning, increased intracranial pressure) [X]IV. Inpatient admission required rather than observation care because of 1 or more of the following [ ]i) Hemodynamic instability [X]ii) Vomiting that is severe or persistent indicated by 1 or more of the following 1) Numerous episodes of vomiting in past 24hours (eg, every 1 to 2 hours) 2) Suggests severe underlying cause or complication (eg , projectile, feculent, bilious, coffee ground, bloody) 3) Appropriate antiemetic treatment (eg, repeated oral or parenteral dosing) does not sufficiently reduce vomiting within 12 to 24 hours of treatment [X] 4) Treatment regimen necessary to adequately control vomiting requires inpatient level of care (eg, not immediately available in outpatient setting) [X]iii) Severe electrolyte abnormalities requiring inpatient care [ ]iv) Severe pain requiring acute inpatient management( Continuous or frequent (eg, every 2 to 4 hours) parental analgesics or analgesic regimen that can only be performed or initiated in inpatient setting) [ ]v) High fever or infection requiring inpatient admission as indicated by 1 or more of the following(7)(8): [ ]1) Appropriate outpatient or observation care antimicrobial treatment unavailable, not effective, or not feasible [ ]2) Documented bacteremia [ ]3) Temp >104.9 degrees F (40.5 degrees C) (oral) [ ]4) Temp >103.1 degrees F (39.5 C) (oral) or <96.8 degrees F (36 C) (rectal) that does not respond to all emergency treatment measures [ ]vi) Acute renal failure [ ]vii) IV fluid required rather than oral rehydration to replace significant on going losses (greater than 3 L/m2 per day) [ ]viii) Parenteral nutrition regimen that must be implemented on inpatient basis [X]ix) Other condition, treatment or monitoring requiring inpatient admission Extended stay beyond goal length of stay may be needed for(1)(4): [ ]a) Severe vomiting [ ]b) Persistent vomiting, vital sign changes, severe electrolyte imbalance , or diagnosed cause of vomiting that requires continued hospitalization (eg, gastrointestinal obstruction , increased intracranial pressure) [ ]c) Surgery to treat identified causes of vomiting (eg, bowel obstruction , intracranial process) [ ]d) Comorbid illness that requires inpatient care (eg, acute heart failure , renal failure) [ ]e) Need for inpatient endoscopy The original [employer] content created by [employer] has been revised. The portions of the content which have been revised are identified through the use of italic text or in bold, and [facility] has neither reviewed nor approved the modified material. All other unmodified content is copyright [employer]. Please see references footnoted in the original [email or web address] edition 2016 Admission Criteria Met?: Yes NONA OSBORNE Feb 04, 2017 19:11
[2017-02-04 19:55] VITALS: BP 96/52
[2017-02-04] MEDS: FAMOTIDINE 20 MG/2 ML VIAL IVP SCH (20:34)
[2017-02-04 23:27] VITALS: BP 102/48
[2017-02-05 03:27] VITALS: BP 109/70
[2017-02-05 07:00] VITALS: BP 145/87
[2017-02-05] MEDS: FAMOTIDINE 20 MG/2 ML VIAL IVP SCH (08:26)
[2017-02-05] MEDS: cloNIDine HCL 0.1 MG TABLET PO SCH (08:27)
[2017-02-05] MEDS: LISINOPRIL 40 MG TABLET. PO SCH (08:27)
[2017-02-05 09:00] LABS: BASO # 0.1 x10^3/uL (0.0-0.2); BASO % 1 % (0-3); EOS % 2 % (0-3); HEMATOCRIT 39.1 % (36.0-47.0); HEMOGLOBIN 13.4 g/dL (12.0-15.5); LYMPH # 4.4 x10^3/uL (1.0-4.8); LYMPH % 39 % (24-48); MEAN CORPUSCULAR HEMOGLOBIN 34 pg (25-35); MEAN CORPUSCULAR HGB CONC 34 g/dL (31-37); MEAN CORPUSCULAR VOLUME 98 fL (79-100); MONO % 8 % (0-9); NEUT % 51 % (31-73); PLATELET COUNT 204 x10^3/uL (140-400); RED BLOOD COUNT 3.99 x10^6/uL (3.50-5.40); RED CELL DISTRIBUTION WIDTH 13.2 % (11.5-14.5); WHITE BLOOD COUNT 11.4 x10^3/uL (4.0-11.0)
[2017-02-05 09:10] LABS: CALCIUM 8.6 mg/dL (8.5-10.1); CREATININE 0.8 mg/dL (0.6-1.0); POTASSIUM 3.5 mmol/L (3.5-5.1)
[2017-02-05 10:26] LABS: PLT ESTIMATE ADEQUATE (ADEQUATE)
[2017-02-05 11:00] VITALS: BP 138/74
--- NOTE | 2017-02-05 21:24 | DS ---
DATE OF DISCHARGE: 02/05/2017 ADMISSION DIAGNOSIS: Cyclical vomiting. DISCHARGE DIAGNOSES: Resolving cyclical vomiting and hypertension. HOSPITAL COURSE: The patient is a pleasant 31-year-old female who presents with nausea, vomiting, hypertension and cyclical vomiting. She was admitted. We gave her fluids and antiemetics. This morning, she is doing better. The patient was seen and I examined this morning. She is doing great. We will plan to discharge. DISPOSITION: Home. ACTIVITY: As tolerated. DIET: Low sodium. MEDICATIONS: Please see the MRAD. TOTAL TIME: 32 minutes. KOFFI LANDEROS DO DR: [id number] JOB#: [id number] / [id number]
== END 2017-02-05 12:36 | disposition home or self-care (01) | DRG 103 ==
LOC: ER 14:00 → 6 SOUTH 15:43
PROVIDERS: ADMIT Internal Medicine; ATTEND Internal Medicine
DX: G43.A0 Cyclical vomiting, in migraine, not intractable (principal); E66.9 Obesity, unspecified; E87.6 Hypokalemia; I10 Essential (primary) hypertension; J45.909 Unspecified asthma, uncomplicated; K21.9 Gastro-esophageal reflux disease without esophagitis; F12.90 Cannabis use, unspecified, uncomplicated; Z90.49 Acquired absence of other specified parts of digestive tract; Z68.38 Body mass index [BMI] 38.0-38.9, adult; Z79.899 Other long term (current) drug therapy; Z88.6 Allergy status to analgesic agent; Z88.8 Allergy status to other drugs, medicaments and biological substances
CPT/HCPCS: 36415; 80048; 80053; 81001; 81025; 82550; 83690; 83735; 85007; 85027; 87086; 96361; 96365; 96372; 96375; 96376; G0480; G0481; J1630; J2550; J3010; J3490; J7030; S0028; 99285-25

== ENCOUNTER 2017-03-17 03:12 | Emergency (ER) | payer OTHER ==
[~2017-03-17] VITALS: Ht 177.8 cm; Wt 124.7 kg
--- NOTE | 2017-03-17 03:14 | PHYS DOC ---
Past Medical History Past Medical History: GERD, Hypertension, Seizure, Other Additional Past Medical Histor: Cyclic vomiting Past Surgical History: Cholecystectomy, Other Additional Past Surgical Histo: EGD. Alcohol Use: None Drug Use: Marijuana Adult General Chief Complaint Chief Complaint: NAUSEA/VOMITING/DIARRHA HPI HPI Patient is a 31 year old female was getting to the emergency department for evaluation of epigastric abdominal pain. She is rocking her body back-and- forth and is quite anxious. She is very difficult to get information from as she keeps asking for me to rub her back. She will not give any further details on the description of her pain and will not answer any questions rather she just asked for pain medications. Review of Systems Review of Systems UNABLE TO OBTAIN DUE TO ANXIETY AND PATIENT NOT COOPERATING Current Medications Current Medications Current Medications Medications (Trade) Dose Ordered Sig/Benita Start Time Stop Time Status Last Admin Dose Admin Clonidine HCl (Catapres) 0.2 mg 1X ONCE 03/17/17 03:30 03/17/17 03:31 DC 03/17/17 03:26 0.2 MG Famotidine (Pepcid) 20 mg 1X ONCE 03/17/17 03:30 03/17/17 03:31 DC 03/17/17 03:25 20 MG Haloperidol Lactate (Haldol) 3 mg 1X ONCE 03/17/17 03:30 03/17/17 03:31 DC 03/17/17 03:25 3 MG Ketamine HCl 250 mg ONCE ONCE 03/17/17 04:15 03/17/17 04:16 DC 03/17/17 04:11 250 MG Lorazepam (Ativan) 1 mg 1X ONCE 03/17/17 04:15 03/17/17 04:16 DC 03/17/17 04:11 1 MG Multi-Ingredient Mouthwash/Gargle (Gi Cocktail Single Dose) 15 ml 1X ONCE 03/17/17 03:30 03/17/17 03:31 DC 03/17/17 03:25 15 ML Oxycodone/ Acetaminophen (Percocet 5/325) 2 tab 1X ONCE 03/17/17 03:30 03/17/17 03:31 DC 03/17/17 03:25 2 TAB Allergies Allergies Allergies Coded Allergies Type Severity Reaction Last Updated Verified metoclopramide HCl Allergy Intermediate 01/21/14 Yes morphine Allergy Intermediate tolerates DILAUDID 12/19/15 Yes Physical Exam Physical Exam Constitutional: Anxious and rocking [id number] HENT: Normocephalic, atraumatic Eyes: PERRLA Cardiovascular:Heart rate regular rhythm, no murmur [] Lungs & Thorax: Bilateral breath sounds clear to auscultation [] Abdomen: Bowel sounds normal, soft, diffuse tenderness, no masses, no pulsatile masses. [] Skin: Warm, dry, no erythema, no rash. [] Neurologic: Alert and oriented X 3 Current Patient Data Vital Signs Vital Signs Date Time Temp Pulse Resp B/P (MAP) Pulse Ox O2 Delivery O2 Flow Rate FiO2 03/17/17 05:15 72 206/106 (139) 99 Room Air 03/17/17 03:31 98.6 22 98.6 Lab Values Laboratory Tests Test 03/17/17 04:25 White Blood Count 12.7 x10^3/uL (4.0-11.0) H Red Blood Count 4.99 x10^6/uL (3.50-5.40) Hemoglobin 16.3 g/dL (12.0-15.5) H Hematocrit 51.2 % (36.0-47.0) H Mean Corpuscular Volume 103 fL (79-100) H Mean Corpuscular Hemoglobin 33 pg (25-35) Mean Corpuscular Hemoglobin Concent 32 g/dL (31-37) Red Cell Distribution Width 13.6 % (11.5-14.5) Platelet Count 166 x10^3/uL (140-400) Neutrophils (%) (Auto) 79 % (31-73) H Lymphocytes (%) (Auto) 18 % (24-48) L Monocytes (%) (Auto) 2 % (0-9) Eosinophils (%) (Auto) 0 % (0-3) Basophils (%) (Auto) 1 % (0-3) Neutrophils # (Auto) 10.0 x10^3uL (1.8-7.7) H Lymphocytes # (Auto) 2.2 x10^3/uL (1.0-4.8) Monocytes # (Auto) 0.3 x10^3/uL (0.0-1.1) Eosinophils # (Auto) 0.0 x10^3/uL (0.0-0.7) Basophils # (Auto) 0.1 x10^3/uL (0.0-0.2) Sodium Level 139 mmol/L (136-145) Potassium Level 4.0 mmol/L (3.5-5.1) Chloride Level 103 mmol/L (98-107) Carbon Dioxide Level 20 mmol/L (21-32) L Anion Gap 16 (6-14) H Blood Urea Nitrogen 13 mg/dL (7-20) Creatinine 0.9 mg/dL (0.6-1.0) Estimated GFR (Cockcroft-Gault) 87.3 BUN/Creatinine Ratio 14 (6-20) Glucose Level 178 mg/dL (70-99) H Calcium Level 9.9 mg/dL (8.5-10.1) Magnesium Level 2.2 mg/dL (1.8-2.4) Total Bilirubin 0.6 mg/dL (0.2-1.0) Aspartate Amino Transferase (AST) 21 U/L (15-37) Alanine Aminotransferase (ALT) 28 U/L (14-59) Alkaline Phosphatase 91 U/L (46-116) Total Protein 8.8 g/dL (6.4-8.2) H Albumin 4.5 g/dL (3.4-5.0) Albumin/Globulin Ratio 1.0 (1.0-1.7) Lipase 139 U/L (73-393) Laboratory Tests 03/17/17 04:25 Laboratory Tests 03/17/17 04:25 EKG EKG [] Radiology/Procedures Radiology/Procedures Acute abdominal series showed no free air pneumothorax or opacity bowel obstruction. Course & Med Decision Making Course & Med Decision Making Patient has history of chronic abdominal pain and cyclic vomiting syndrome. I will treat symptoms and check labs. I am very hesitant to do any CTs as one of the prior CTs done in 2013 states that she has had at least 12 CAT scans in the last 8 years and she has received several since that time and this is not the only hospital that she goes to. Will get acute abdominal series to rule out perforated viscus. Patient does not feel better after Haldol Percocet GI cocktail and Pepcid. She had no vomiting but she says her pain was still uncontrolled. Patient given ketamine and ativan and is now resting comfortably. Patient said the ketamine made her feel somewhat nauseated and and she did vomit once after the ketamine after being given Zofran she was able tolerate water by mouth with no difficulty. Patient is dehydrated as she is hemoconcentrated however her other labs appear normal including her potassium. Patient is slightly acidotic likely from her dehydration. Patient says that she is feeling much better and wanting to go home as her pain and nausea are now resolved. Patient was somewhat sleepy from the ketamine. After waking up she is alert and oriented 3 ambulate with a steady gait. Patient told to follow with her primary care provider and GI doctor and come back to the ER sooner with any worsening pain fevers vomiting or other general concerns. Patient verbalized understanding of the above plan and was discharged in stable condition with normal vital signs except for her baseline hypertension. Patient was told to follow with her primary care provider regarding this as well and she says that she has not been taking her medications for her blood pressure. Dragon Disclaimer Dragon Disclaimer This electronic medical record was generated, in whole or in part, using a voice recognition dictation system. Departure Departure Impression: Primary Impression: Abdominal pain Additional Impressions: Nausea and vomiting Dehydration Disposition: 01 HOME, SELF-CARE Condition: GOOD Referrals: UNKNOWN PCP NAME (PCP) Patient Instructions: Nausea and Vomiting Problem Qualifiers Primary Impression: Abdominal pain Abdominal location: epigastric Qualified Codes: R10.13 - Epigastric pain TU ROMAN DO Mar 17, 2017 03:14
[2017-03-17] MEDS ORDERED: cloNIDine HCL 0.1 MG TABLET PO ONE (03:30)
[2017-03-17] MEDS ORDERED: FAMOTIDINE 20 MG TABLET. PO ONE (03:30)
[2017-03-17] MEDS ORDERED: HALOPERIDOL LACTATE 5 MG/ML VIAL. IM ONE (03:30)
[2017-03-17] MEDS ORDERED: oxyCODONE/APAP 5/325 1 TAB TABLET PO ONE (03:30)
[2017-03-17] MEDS ORDERED: LIDO:MAALOX:DONNATAL 1:1:1 15 ML SINGLE DOSE SWSW ONE (03:30)
[2017-03-17] MEDS ORDERED: KETAMINE HCL 500 MG/10 ML VIAL. IM ONE (04:15)
[2017-03-17] MEDS ORDERED: LORazepam 1 MG TABLET PO ONE (04:15)
[2017-03-17 05:09] LABS: BASO # 0.1 x10^3/uL (0.0-0.2); BASO % 1 % (0-3); CALCIUM 9.9 mg/dL (8.5-10.1); CREATININE 0.9 mg/dL (0.6-1.0); EOS % 0 % (0-3); GFR 87.3; HEMATOCRIT 51.2 % (36.0-47.0); HEMOGLOBIN 16.3 g/dL (12.0-15.5); LYMPH # 2.2 x10^3/uL (1.0-4.8); LYMPH % 18 % (24-48); MEAN CORPUSCULAR HEMOGLOBIN 33 pg (25-35); MEAN CORPUSCULAR HGB CONC 32 g/dL (31-37); MEAN CORPUSCULAR VOLUME 103 fL (79-100); MONO % 2 % (0-9); NEUT % 79 % (31-73); PLATELET COUNT 166 x10^3/uL (140-400); RED BLOOD COUNT 4.99 x10^6/uL (3.50-5.40); RED CELL DISTRIBUTION WIDTH 13.6 % (11.5-14.5); WHITE BLOOD COUNT 12.7 x10^3/uL (4.0-11.0)
[2017-03-17 05:15] VITALS: BP 206/106
[2017-03-17 05:16] LABS: ALBUMIN 4.5 g/dL (3.4-5.0); MAGNESIUM 2.2 mg/dL (1.8-2.4); TOTAL BILIRUBIN 0.6 mg/dL (0.2-1.0); TOTAL PROTEIN 8.8 g/dL (6.4-8.2)
[2017-03-17] MEDS ORDERED: ONDANSETRON ODT 4 MG TAB.RAPDIS. PO ONE (05:45)
--- NOTE | 2017-03-17 07:15 | RAD ---
Acute abdominal series 03/17/2017 at 0411 hours Indication: Abdominal pain Comparison: Acute abdominal series 12/13/2015 Technique: Portable upright view of the chest, supine views of the abdomen and upright views of the abdomen are provided. Findings: Cardiomediastinal silhouette is within normal limits. No pleural effusions, pulmonary vascular congestion or pneumothorax. The lungs are clear. Osseous structures are normal. Close sagittal clips are identified in the right upper quadrant. There is a paucity of bowel gas. However, there are no dilated loops of small or large bowel. No air-fluid levels. No abnormal calcifications. Impression: 1. No acute cardiac pulmonary process. 2. Nonobstructive bowel gas pattern.
== END 2017-03-17 07:02 | disposition home or self-care (01) ==
LOC: ER 03:12
DX: R10.13 Epigastric pain (principal); R11.2 Nausea with vomiting, unspecified; E86.0 Dehydration; F41.9 Anxiety disorder, unspecified; I10 Essential (primary) hypertension; K21.9 Gastro-esophageal reflux disease without esophagitis; G89.29 Other chronic pain; Z88.8 Allergy status to other drugs, medicaments and biological substances; Z88.5 Allergy status to narcotic agent; Z90.49 Acquired absence of other specified parts of digestive tract
CPT/HCPCS: 36415; 74022; 80053; 83690; 83735; 85027; 96372; 99285; J1630; J3490; Q0162

== ENCOUNTER 2017-06-28 08:27 | Emergency (ER) | payer OTHER ==
[~2017-06-28] VITALS: Ht 180.3 cm; Wt 122.5 kg
[~2017-06-28 08:27] MED LIST changes: +METO-239 PO; -METO25TA9 PO
[2017-06-28] MEDS ORDERED: DICYCLOMINE 20 MG/2 ML AMPUL. IM ONE (09:00)
[2017-06-28] MEDS ORDERED: IV NORMAL SALINE 1000ML BAG 1,000 ML IV ONE (09:00)
[2017-06-28] MEDS ORDERED: PROMETHAZINE IM 25 MG/ML VIAL IM ONE (09:00)
[2017-06-28] MEDS ORDERED: FAMOTIDINE 20 MG/2 ML VIAL IVP ONE (09:00)
--- NOTE | 2017-06-28 09:02 | PHYS DOC ---
Past Medical History Past Medical History: GERD, Hypertension, Seizure, Other Additional Past Medical Histor: Cyclic vomiting Past Surgical History: Cholecystectomy, Other Additional Past Surgical Histo: EGD. Alcohol Use: None Drug Use: Marijuana Adult General Chief Complaint Chief Complaint: NAUSEA/VOMITING/DIARRHA HPI HPI Patient is a 31 year old female presents to the emergency department stating that she's been having abdominal pain with nausea vomiting since Tuesday. She states that she has not been able to keep any fluids down. She states that she' s vomited approximately 4 times in the last 24 hours with 4 diarrhea stools. She denies blood being in either emesis or stool. Patient states that her stools are completely liquid. Patient states that she was seen at on Tuesday and was provided medications there are the emergency department. She states she was not sent home with anything for nausea vomiting. Patient states she has a history of cyclic vomiting. She states she last used marijuana approximately 3 weeks ago. Patient denies fever, chills. She denies any urinary frequency urgency or pain with urination. Patient states that she has generalized upper abdominal pain and discomfort. She states it's a 10/10. She describes the pain as sharp in nature and occasionally cramping. Review of Systems Review of Systems Constitutional: Denies fever or chills [] Eyes: Denies change in visual acuity, redness, or eye pain [] HENT: Denies nasal congestion or sore throat [] Respiratory: Denies cough or shortness of breath [] Cardiovascular: No additional information not addressed in HPI [] GI: Complains of abdominal pain with nausea vomiting and diarrhea denies any blood in the emesis or stool : Denies dysuria or hematuria [] Musculoskeletal: Denies back pain or joint pain [] Integument: Denies rash or skin lesions [] Neurologic: Denies headache, focal weakness or sensory changes [] Endocrine: Denies polyuria or polydipsia [] Current Medications Current Medications Current Medications Medications (Trade) Dose Ordered Sig/Benita Start Time Stop Time Status Last Admin Dose Admin Clonidine HCl (Catapres) 0.2 mg 1X ONCE 06/28/17 12:15 06/28/17 12:16 DC 06/28/17 11:48 0.2 MG Dicyclomine HCl (Bentyl) 10 mg 1X ONCE 06/28/17 09:00 06/28/17 09:01 DC 06/28/17 11:05 10 MG Famotidine (Pepcid) 20 mg 1X ONCE 06/28/17 12:15 06/28/17 12:16 DC 06/28/17 11:47 20 MG Promethazine HCl (Phenergan Im) 25 mg 1X ONCE 06/28/17 09:00 06/28/17 09:01 DC 06/28/17 11:04 25 MG Sodium Chloride 1,000 ml @ 1,000 mls/hr 1X ONCE 06/28/17 09:00 06/28/17 09:59 DC Allergies Allergies Allergies Coded Allergies Type Severity Reaction Last Updated Verified metoclopramide HCl Allergy Intermediate 01/21/14 Yes morphine Allergy Intermediate tolerates DILAUDID 12/19/15 Yes Physical Exam Physical Exam Constitutional: Well developed, well nourished, no acute distress, non-toxic appearance. [] HENT: Normocephalic, atraumatic, bilateral external ears normal, oropharynx moist, no oral exudates, nose normal. [] Eyes: PERRLA, EOMI, conjunctiva normal, no discharge. [] Neck: Normal range of motion, no tenderness, supple, no stridor. [] Cardiovascular:Heart rate regular rhythm, no murmur [] Lungs & Thorax: Bilateral breath sounds clear to auscultation [] Abdomen: Bowel sounds hypoactive, soft, generalized upper abdominal tenderness, no masses, no pulsatile masses. No rebound tenderness noted, no guarding noted, no splenomegaly noted. Skin: Warm, dry, no erythema, no rash. [] Extremities: No tenderness, no cyanosis, no clubbing, ROM intact, no edema. [] Neurologic: Alert and oriented X 3, normal motor function, normal sensory function, no focal deficits noted. [] Psychologic: Affect normal, judgement normal, mood normal. [] Current Patient Data Vital Signs Vital Signs Date Time Temp Pulse Resp B/P (MAP) Pulse Ox O2 Delivery O2 Flow Rate FiO2 06/28/17 12:19 88 19 167/95 (119) 100 Room Air 06/28/17 08:55 98.8 98.8 Lab Values Laboratory Tests Test 06/28/17 08:51 06/28/17 10:20 06/28/17 11:35 POC Urine HCG, Qualitative Hcg negative (Negative) Urine Collection Type Unknown Urine Color Carito Urine Clarity Cloudy Urine pH 6.0 Urine Specific [place] >=1.030 Urine Protein 30 mg/dL (NEG-TRACE) Urine Glucose (UA) Negative mg/dL (NEG) Urine Ketones (Stick) Trace mg/dL (NEG) Urine Blood Negative (NEG) Urine Nitrite Negative (NEG) Urine Bilirubin Small (NEG) Urine Urobilinogen Dipstick 1.0 mg/dL (0.2 mg/dL) Urine Leukocyte Esterase Moderate (NEG) Urine RBC 0 /HPF (0-2) Urine WBC 5-10 /HPF (0-4) Urine Squamous Epithelial Cells Occ /LPF Urine Amorphous Sediment Present /HPF Urine Bacteria Moderate /HPF (0-FEW) Urine Opiates Screen Neg (NEG) Urine Methadone Screen Neg (NEG) Urine Barbiturates Neg (NEG) Urine Phencyclidine Screen Neg (NEG) Urine Amphetamine/Methamphetamine Neg (NEG) Urine Benzodiazepines Screen Neg (NEG) Urine Cocaine Screen Neg (NEG) Urine Cannabinoids Screen Pos (NEG) Urine Ethyl Alcohol Neg (NEG) White Blood Count 17.5 x10^3/uL (4.0-11.0) H Red Blood Count 5.05 x10^6/uL (3.50-5.40) Hemoglobin 16.6 g/dL (12.0-15.5) H Hematocrit 49.6 % (36.0-47.0) H Mean Corpuscular Volume 98 fL (79-100) Mean Corpuscular Hemoglobin 33 pg (25-35) Mean Corpuscular Hemoglobin Concent 34 g/dL (31-37) Red Cell Distribution Width 13.5 % (11.5-14.5) Platelet Count 238 x10^3/uL (140-400) Neutrophils (%) (Auto) 56 % (31-73) Lymphocytes (%) (Auto) 35 % (24-48) Monocytes (%) (Auto) 8 % (0-9) Eosinophils (%) (Auto) 1 % (0-3) Basophils (%) (Auto) 1 % (0-3) Neutrophils # (Auto) 9.7 x10^3uL (1.8-7.7) H Lymphocytes # (Auto) 6.1 x10^3/uL (1.0-4.8) H Monocytes # (Auto) 1.4 x10^3/uL (0.0-1.1) H Eosinophils # (Auto) 0.1 x10^3/uL (0.0-0.7) Basophils # (Auto) 0.2 x10^3/uL (0.0-0.2) Sodium Level 137 mmol/L (136-145) Potassium Level 3.5 mmol/L (3.5-5.1) Chloride Level 99 mmol/L (98-107) Carbon Dioxide Level 21 mmol/L (21-32) Anion Gap 17 (6-14) H Blood Urea Nitrogen 10 mg/dL (7-20) Creatinine 0.7 mg/dL (0.6-1.0) Estimated GFR (Cockcroft-Gault) 116.6 BUN/Creatinine Ratio 14 (6-20) Glucose Level 108 mg/dL (70-99) H Calcium Level 10.0 mg/dL (8.5-10.1) Total Bilirubin 1.2 mg/dL (0.2-1.0) H Aspartate Amino Transferase (AST) 21 U/L (15-37) Alanine Aminotransferase (ALT) 30 U/L (14-59) Alkaline Phosphatase 84 U/L (46-116) Total Protein 8.3 g/dL (6.4-8.2) H Albumin 4.7 g/dL (3.4-5.0) Albumin/Globulin Ratio 1.3 (1.0-1.7) Amylase Level 58 U/L (25-115) Lipase 166 U/L (73-393) Laboratory Tests 06/28/17 11:35 Laboratory Tests 06/28/17 11:35 EKG EKG [] Radiology/Procedures Radiology/Procedures [] Course & Med Decision Making Course & Med Decision Making Pertinent Labs and Imaging studies reviewed. (See chart for details) Patient will be provided with IV fluids here in the emergency department. She' ll be provided with Phenergan, and Pepcid, and Bentyl. Patient has labs, CBC, CMP, amylase, lipase, UA, urine drug screen, acute abdominal series pending. Patient's blood pressure was elevated here in the emergency department. After she had received the Phenergan she was also provided with by mouth clonidine. Her blood pressure has come down nicely within normal limits. Heart rate is 100. Patient continues to state that she has having abdominal pain and headache. Has encourage the patient to drink plenty of fluids since an IV is unable to be established here in the emergency department. Patient has had no nausea or vomiting during her four-hour emergency department visit. Patient will be sent home with Phenergan suppositories. She'll be provided with a prescription for Bentyl with recommendations to follow-up with her primary care physician. Recommend that she drinks plenty of fluids and use Tylenol or ibuprofen for pain and discomfort. Patient will be discharged home with the above recommendations. All questions and concerns been answered at patient's bedside. Signs and symptoms to return back to emergency department as been provided. Patient's urine was positive for ketones as well as leukocyte Estrace with bacteria. She'll be placed on Bactrim 1 tablet twice a day for the next 3 days as I feel the patient is probably noncompliant. Patient's drug screen was positive for marijuana. Patient is aware that this can cause cyclic vomiting. [] Dragon Disclaimer Dragon Disclaimer This electronic medical record was generated, in whole or in part, using a voice recognition dictation system. Departure Departure Impression: Primary Impression: Abdominal pain Additional Impressions: Vomiting and diarrhea Cyclical vomiting UTI (urinary tract infection) Disposition: 01 HOME, SELF-CARE Condition: STABLE Referrals: NO PCP (PCP) Patient Instructions: Abdominal Pain (Nonspecific), Cyclic Vomiting Syndrome, Diarrhea, [id number], Diet for Diarrhea, Adult, Nausea and Vomiting, Easy-to- Read, Urinary Tract Infection, [id number] Additional Instructions: Your urine was positive for marijuana. This will cause cyclic vomiting. Activity as tolerated. Drink plenty of fluids such as water Gatorade or propel. Medications as prescribed. Phenergan will cause drowsiness do not take any be alert and oriented. Antibiotics as prescribed as your urine was positive for urinary tract infection. Drink plenty of fluids such as water and cranberry juice. Avoid cranberry juice cocktail, carbonated beverages, citrus fruits, alcohol, and caffeine as these are considered irritants to the bladder. Continue with your home medications. Follow-up to primary care physician in 2-3 days. Return to emergency prior signs symptoms of become worse. Scripts Sulfamethoxazole/Trimethoprim (BACTRIM DS TABLET) 1 Each Tablet 1 TAB PO BID, #6 TAB Prov: KEIKO NICHOLAS APRN 06/28/17 Promethazine HCl (Phenergan) 25 Mg Supp.rect 25 MG RC Q6-8HRS Y for VOMITING, #10 SUPP.RECT Prov: KEIKO NICHOLAS APRN 06/28/17 Dicyclomine Hcl (BENTYL) 10 Mg Capsule 1 CAP PO TID, #30 CAP Prov: KEIKO NICHOLAS APRN 06/28/17 Problem Qualifiers Primary Impression: Abdominal pain Abdominal location: unspecified location Qualified Codes: R10.9 - Unspecified abdominal pain Additional Impressions: Cyclical vomiting Vomiting Intractability: unspecified Nausea presence: unspecified Qualified Codes: G43.A0 - Cyclical vomiting, not intractable KEIKO NICHOLAS APRN Jun 28, 2017 09:02
--- NOTE | 2017-06-28 09:57 | RAD ---
Acute abdomen series with chest, 06/28/2017: History: Upper abdominal pain Gas is present in large and small bowel in a nonspecific pattern. No free air is seen in the abdomen. There is no evidence of organomegaly. Surgical clips are present right upper quadrant compatible with a previous cholecystectomy. The heart size is normal. The lungs are clear. There is no evidence of pleural fluid. IMPRESSION: No acute abdominal abnormality is detected.
[2017-06-28 10:42] LABS: BILIRUBIN,URINE SMALL (NEG); GLUCOSE,URINE NEGATIVE (NEG); NITRITE,URINE NEGATIVE (NEG); PROTEIN,URINE 30 mg/dL (NEG-TRACE)
[2017-06-28 10:43] LABS: BARBITURATES NEG (NEG); BENZODIAZEPINES NEG (NEG); CANNABINOIDS POS (NEG); COCAINE NEG (NEG); METHADONE NEG (NEG); OPIATES NEG (NEG); PHENCYCLIDINE NEG (NEG)
[2017-06-28 10:57] LABS: BACTERIA,URINE MODERATE /HPF (0-FEW); RBC,URINE 0 /HPF (0-2); SQUAMOUS EPITHELIAL CELL,UR OCC /LPF
[2017-06-28 11:58] LABS: BASO # 0.2 x10^3/uL (0.0-0.2); BASO % 1 % (0-3); EOS % 1 % (0-3); HEMATOCRIT 49.6 % (36.0-47.0); HEMOGLOBIN 16.6 g/dL (12.0-15.5); LYMPH # 6.1 x10^3/uL (1.0-4.8); LYMPH % 35 % (24-48); MEAN CORPUSCULAR HEMOGLOBIN 33 pg (25-35); MEAN CORPUSCULAR HGB CONC 34 g/dL (31-37); MEAN CORPUSCULAR VOLUME 98 fL (79-100); MONO % 8 % (0-9); NEUT % 56 % (31-73); PLATELET COUNT 238 x10^3/uL (140-400); RED BLOOD COUNT 5.05 x10^6/uL (3.50-5.40); RED CELL DISTRIBUTION WIDTH 13.5 % (11.5-14.5); WHITE BLOOD COUNT 17.5 x10^3/uL (4.0-11.0)
[2017-06-28 12:00] LABS: CREATININE 0.7 mg/dL (0.6-1.0); GFR 116.6; POTASSIUM 3.5 mmol/L (3.5-5.1)
[2017-06-28 12:05] LABS: ALBUMIN 4.7 g/dL (3.4-5.0); ALBUMIN/GLOBULIN RATIO 1.3 (1.0-1.7); TOTAL BILIRUBIN 1.2 mg/dL (0.2-1.0); TOTAL PROTEIN 8.3 g/dL (6.4-8.2)
[2017-06-28] MEDS ORDERED: FAMOTIDINE 20 MG TABLET. PO ONE (12:15)
[2017-06-28] MEDS ORDERED: cloNIDine HCL 0.1 MG TABLET PO ONE (12:15)
[2017-06-28] MEDS ORDERED: DICY10CA53 PO (12:53)
[2017-06-28] MEDS ORDERED: PROM25SU32 RC (12:53)
[2017-06-28] MEDS ORDERED: SULF1TAB24 PO (12:55)
[2017-06-28 13:19] VITALS: BP 120/74
== END 2017-06-28 13:26 | disposition home or self-care (01) ==
LOC: ER 08:27
DX: N39.0 Urinary tract infection, site not specified (principal); G43.A0 Cyclical vomiting, in migraine, not intractable; R19.7 Diarrhea, unspecified; K21.9 Gastro-esophageal reflux disease without esophagitis; I10 Essential (primary) hypertension; Z90.49 Acquired absence of other specified parts of digestive tract; Z88.5 Allergy status to narcotic agent; Z88.8 Allergy status to other drugs, medicaments and biological substances
CPT/HCPCS: 36415; 74022; 80053; 80307; 81001; 81025; 82150; 83690; 85025; 87086; 96372; 99285; J0500; J2550; G0479

== ENCOUNTER 2017-08-05 16:46 | Emergency (ER) | payer OTHER ==
[~2017-08-05] VITALS: Ht 177.8 cm; Wt 124.7 kg
[~2017-08-05 16:46] MED LIST changes: +DICY10CA53 PO; +PROM25SU32 RC; +SULF1TAB24 PO
[2017-08-05 18:20] VITALS: BP 152/107
[2017-08-05] MEDS ORDERED: LIDO:MAALOX:DONNATAL 1:1:1 15 ML SINGLE DOSE SWSW ONE (18:30)
--- NOTE | 2017-08-05 18:37 | PHYS DOC ---
Past Medical History Past Medical History: GERD, Hypertension Additional Past Medical Histor: CYCLIC VOMITING SYNDROME Past Surgical History: No Surgical History Additional Past Surgical Histo: EGD. Additional Information: 1 PACK/DAY Alcohol Use: None Drug Use: None Adult General Chief Complaint Chief Complaint: Congestion HPI HPI Patient is a 31 year old female presents to the emergency department the three- day history of upper respiratory symptoms, general malaise. No measured fever. She also complains of reflux. She is using ibuprofen [id number] as needed. Review of Systems Review of Systems Constitutional: Denies fever or chills [] Eyes: Denies change in visual acuity, redness, or eye pain [] HENT: Nasal congestion, sore throat Respiratory: Productive cough GI: Denies abdominal pain, nausea, vomiting, bloody stools or diarrhea [] : Denies dysuria or hematuria [] Musculoskeletal: General malaise Integument: Denies rash or skin lesions [] Neurologic: Denies headache, focal weakness or sensory changes [] Endocrine: Denies polyuria or polydipsia [] All other systems were reviewed and found to be within normal limits, except as documented in this note. Current Medications Current Medications Current Medications Medications (Trade) Dose Ordered Sig/Benita Start Time Stop Time Status Last Admin Dose Admin Acetaminophen (Tylenol) 1,000 mg 1X ONCE 08/05/17 19:00 08/05/17 19:01 DC 08/05/17 18:58 1,000 MG Multi-Ingredient Mouthwash/Gargle (Gi Cocktail Single Dose) 15 ml 1X ONCE 08/05/17 18:30 08/05/17 18:31 DC 08/05/17 18:35 15 ML Allergies Allergies Allergies Coded Allergies Type Severity Reaction Last Updated Verified metoclopramide HCl Allergy Intermediate 01/21/14 Yes morphine Allergy Intermediate tolerates DILAUDID 12/19/15 Yes Physical Exam Physical Exam Constitutional: Well developed, well nourished, no acute distress, non-toxic appearance. [] HENT: Normocephalic, atraumatic, bilateral external ears normal, bilateral tympanic membranes pearly barboza with effusion, oropharynx moist, posterior pharynx injected, no oral exudates, nose normal. [] Eyes: PERRLA, EOMI, conjunctiva normal, no discharge. [] Neck: Normal range of motion, no tenderness, supple without lymphadenopathy, no stridor. [] Cardiovascular:Heart rate regular rhythm, no murmur [] Lungs & Thorax: Bilateral breath sounds clear to auscultation [] Abdomen: Bowel sounds normal, soft, no tenderness, no masses, no pulsatile masses. [] Skin: Warm, dry, no erythema, no rash. [] Back: No tenderness, no CVA tenderness. [] Extremities: No tenderness, no cyanosis, no clubbing, ROM intact, no edema. [] Neurologic: Alert and oriented X 3, normal motor function, normal sensory function, no focal deficits noted. [] Current Patient Data Vital Signs Vital Signs Date Time Temp Pulse Resp B/P (MAP) Pulse Ox O2 Delivery O2 Flow Rate FiO2 08/05/17 18:20 99.2 112 20 98 Room Air 99.2 Lab Values Laboratory Tests Test 08/05/17 18:32 Influenza Type A Antigen Negative (NEGATIVE) Influenza Type B Antigen Negative (NEGATIVE) EKG EKG [] Radiology/Procedures Radiology/Procedures [] Course & Med Decision Making Course & Med Decision Making Strep negative, influenza negative She received GI cocktail and Tylenol for relief of symptoms in the emergency department. Pertinent Labs and Imaging studies reviewed. (See chart for details) [] Dragon Disclaimer Dragon Disclaimer This electronic medical record was generated, in whole or in part, using a voice recognition dictation system. Departure Departure Impression: Primary Impression: Viral syndrome Additional Impression: Chronic GERD Disposition: 01 HOME, SELF-CARE Condition: STABLE Referrals: UNKNOWN PCP NAME (PCP) [facility] Patient Instructions: Clear Liquid Diet, Diet - Soft, Viral Syndrome Scripts Ondansetron (ZOFRAN ODT) 4 Mg Tab.rapdis 1 TAB SL Q8HRS Y for NAUSEA, #15 TAB Prov: ELIZABETH ARSHAD APRN 08/05/17 Famotidine (PEPCID) 20 Mg Tablet 20 MG PO HS, #15 TAB Prov: ELIZABETH ARSHAD APRN 08/05/17 Dextromethorphan HBr (Robitussin) 15 Mg Capsule 15 MG PO Q8H Y for COUGH, #20 CAP Prov: ELIZABETH ARSHAD APRN 08/05/17 Problem Qualifiers ELIZABETH ARSHAD APRN Aug 05, 2017 18:37
[2017-08-05] MEDS ORDERED: ACETAMINOPHEN 500 MG TABLET PO ONE (19:00)
[2017-08-05 19:45] LABS: OBC FLU VALID
[2017-08-05] MEDS ORDERED: FAMO-63 PO (19:49)
[2017-08-05] MEDS ORDERED: ONDA4TAB10 SL (19:49)
[2017-08-05] MEDS ORDERED: DEXT15CA37 PO (19:49)
== END 2017-08-05 20:00 | disposition home or self-care (01) ==
LOC: ER 16:46
DX: B34.9 Viral infection, unspecified (principal); K21.9 Gastro-esophageal reflux disease without esophagitis; I10 Essential (primary) hypertension; F17.200 Nicotine dependence, unspecified, uncomplicated; Z88.5 Allergy status to narcotic agent; Z88.8 Allergy status to other drugs, medicaments and biological substances
CPT/HCPCS: 87804; 99284

== ENCOUNTER 2017-11-27 10:14 | Emergency (ER) | payer OTHER ==
[2017-11-27] MEDS: HALOPERIDOL LACTATE 5 MG/ML VIAL. IVP (11:29)
[2017-11-27] MEDS: IV NORMAL SALINE 1000ML BAG 1,000 ML IV (11:30)
[2017-11-27 12:11] LABS: ADD MAN DIFF? NO
[2017-11-27 12:19] LABS: BASO # 0.1 x10^3/uL (0.0-0.2); BASO % 1 % (0-3); EOS # 0.2 x10^3/uL (0.0-0.7); EOS % 1 % (0-3); HEMATOCRIT 44.2 % (36.0-47.0); HEMOGLOBIN 14.8 g/dL (12.0-15.5); LYMPH # 2.1 x10^3/uL (1.0-4.8); LYMPH % 14 % (24-48); MEAN CORPUSCULAR HEMOGLOBIN 33 pg (25-35); MEAN CORPUSCULAR HGB CONC 34 g/dL (31-37); MEAN CORPUSCULAR VOLUME 99 fL (79-100); MONO # 0.6 x10^3/uL (0.0-1.1); MONO % 4 % (0-9); NEUT # 12.4 x10^3uL (1.8-7.7); NEUT % 80 % (31-73); PLATELET COUNT 340 x10^3/uL (140-400); RED BLOOD COUNT 4.47 x10^6/uL (3.50-5.40); RED CELL DISTRIBUTION WIDTH 13.5 % (11.5-14.5); WHITE BLOOD COUNT 15.4 x10^3/uL (4.0-11.0)
[2017-11-27 12:27] LABS: ANION GAP 11 (6-14); BLOOD UREA NITROGEN 10 mg/dL (7-20); CALCIUM 9.8 mg/dL (8.5-10.1); CARBON DIOXIDE 27 mmol/L (21-32); CHLORIDE 102 mmol/L (98-107); CREATININE 0.9 mg/dL (0.6-1.0); GFR 86.7; GLUCOSE 91 mg/dL (70-99); POTASSIUM 3.4 mmol/L (3.5-5.1); SODIUM 140 mmol/L (136-145)
[2017-11-27 12:34] LABS: ALBUMIN 4.2 g/dL (3.4-5.0); ALK PHOS 88 U/L (46-116); ALT (SGPT) 39 U/L (14-59); AST (SGOT) 28 U/L (15-37); DIRECT BILIRUBIN 0.2 mg/dL (0.0-0.2); MAGNESIUM 2.1 mg/dL (1.8-2.4); TOTAL PROTEIN 8.4 g/dL (6.4-8.2)
[2017-11-27 12:48] LABS: BILIRUBIN,URINE SMALL (NEG); CLARITY,URINE CLOUDY; GLUCOSE,URINE NEGATIVE (NEG); NITRITE,URINE NEGATIVE (NEG); PROTEIN,URINE NEGATIVE (NEG-TRACE)
[2017-11-27 12:49] LABS: URINE HCG POC HCG NEGATIVE (Negative)
[2017-11-27 12:55] LABS: BARBITURATES NEG (NEG); BENZODIAZEPINES NEG (NEG); CANNABINOIDS NEG (NEG); COCAINE NEG (NEG); METHADONE NEG (NEG); OPIATES NEG (NEG); PHENCYCLIDINE NEG (NEG)
[2017-11-27 12:57] LABS: BACTERIA,URINE FEW /HPF (0-FEW); COLOR,URINE YELLOW; RBC,URINE OCC /HPF (0-2); SQUAMOUS EPITHELIAL CELL,UR MOD /LPF
[2017-11-27 13:04] LABS: AMPHETAMINE/METHAMPHETAMINE NEG (NEG); ETHANOL, URINE NEG (NEG)
[2017-11-27] MEDS: KETOROLAC 30 MG/ML INJ. IV (13:15)
[2017-11-27] MEDS ORDERED: IV NORMAL SALINE 1000ML BAG 1,000 ML IV (13:15)
== END 2017-11-27 14:22 | disposition home or self-care (01) ==
LOC: ER 14:22
DX: E11.649 Type 2 diabetes mellitus with hypoglycemia without coma (principal); E87.6 Hypokalemia; N30.00 Acute cystitis without hematuria; G43.A0 Cyclical vomiting, in migraine, not intractable; K21.9 Gastro-esophageal reflux disease without esophagitis; I10 Essential (primary) hypertension; M10.9 Gout, unspecified; Z90.49 Acquired absence of other specified parts of digestive tract; Z95.0 Presence of cardiac pacemaker; Z90.710 Acquired absence of both cervix and uterus; Z88.0 Allergy status to penicillin
CPT/HCPCS: 36415; 74022; 80048; 80076; 80307; 81001; 81025; 83735; 85025; 87086; 96361; 96374; 96375; 99285-25; J1630; J1885; J7030

== ENCOUNTER 2018-01-04 08:25 | Emergency (ER) | payer OTHER ==
[2018-01-04] MEDS: IV NORMAL SALINE 1000ML BAG 1,000 ML IV (09:36)
[2018-01-04] MEDS: ONDANSETRON PF 4 MG/2 ML VIAL. IV (09:36)
[2018-01-04] MEDS: KETOROLAC 30 MG/ML INJ. IV (09:37)
[2018-01-04] MEDS: HALOPERIDOL LACTATE 5 MG/ML VIAL. IVP (09:37)
[2018-01-04 09:39] LABS: ADD MAN DIFF? NO
[2018-01-04 09:43] LABS: BASO # 0.1 x10^3/uL (0.0-0.2); BASO % 1 % (0-3); EOS # 0.1 x10^3/uL (0.0-0.7); EOS % 1 % (0-3); HEMATOCRIT 43.4 % (36.0-47.0); HEMOGLOBIN 14.9 g/dL (12.0-15.5); LYMPH # 2.6 x10^3/uL (1.0-4.8); LYMPH % 26 % (24-48); MEAN CORPUSCULAR HEMOGLOBIN 34 pg (25-35); MEAN CORPUSCULAR HGB CONC 34 g/dL (31-37); MEAN CORPUSCULAR VOLUME 100 fL (79-100); MONO # 0.6 x10^3/uL (0.0-1.1); MONO % 6 % (0-9); NEUT # 6.7 x10^3uL (1.8-7.7); NEUT % 66 % (31-73); PLATELET COUNT 313 x10^3/uL (140-400); RED BLOOD COUNT 4.36 x10^6/uL (3.50-5.40); RED CELL DISTRIBUTION WIDTH 13.7 % (11.5-14.5); WHITE BLOOD COUNT 10.1 x10^3/uL (4.0-11.0)
[2018-01-04 09:52] LABS: BILIRUBIN,URINE SMALL (NEG); CLARITY,URINE TURBID; COLOR,URINE AMBER; GLUCOSE,URINE NEGATIVE (NEG); NITRITE,URINE NEGATIVE (NEG); PH,URINE 5.5; PROTEIN,URINE 30 mg/dL (NEG-TRACE)
[2018-01-04 09:58] LABS: ANION GAP 12 (6-14); BLOOD UREA NITROGEN 10 mg/dL (7-20); BUN/CREATININE RATIO 13 (6-20); CALCIUM 10.3 mg/dL (8.5-10.1); CARBON DIOXIDE 22 mmol/L (21-32); CHLORIDE 104 mmol/L (98-107); CREATININE 0.8 mg/dL (0.6-1.0); GFR 99.4; GLUCOSE 120 mg/dL (70-99); POTASSIUM 4.1 mmol/L (3.5-5.1); SODIUM 138 mmol/L (136-145)
[2018-01-04] MEDS: LIDO:MAALOX 1:1 20 ML SINGLE DOSE. SWSW (09:59)
[2018-01-04] MEDS: ASPIRIN CHEWABLE 81 MG TABLET. PO (10:00)
[2018-01-04 10:03] LABS: ETHANOL < 10 mg/dL (0-10)
[2018-01-04 10:03] LABS: ALBUMIN 4.3 g/dL (3.4-5.0); ALBUMIN/GLOBULIN RATIO 1.1 (1.0-1.7); ALK PHOS 96 U/L (46-116); ALT (SGPT) 20 U/L (14-59); AST (SGOT) 17 U/L (15-37); LIPASE 189 U/L (73-393); TOTAL BILIRUBIN 0.9 mg/dL (0.2-1.0); TOTAL PROTEIN 8.2 g/dL (6.4-8.2)
[2018-01-04 10:06] LABS: TROPONINI < 0.017 ng/mL (0.000-0.055)
[2018-01-04 10:09] LABS: BACTERIA,URINE 0 /HPF (0-FEW); RBC,URINE 0 /HPF (0-2); SQUAMOUS EPITHELIAL CELL,UR MOD /LPF; WBC,URINE 0 /HPF (0-4)
[2018-01-04 10:10] LABS: AMORPHOUS SEDIMENT,UR PRESENT /HPF
[2018-01-04 10:13] LABS: BARBITURATES NEG (NEG); BENZODIAZEPINES NEG (NEG); CANNABINOIDS POS (NEG); COCAINE NEG (NEG); METHADONE NEG (NEG); OPIATES NEG (NEG); PHENCYCLIDINE NEG (NEG)
[2018-01-04 10:15] LABS: AMPHETAMINE/METHAMPHETAMINE NEG (NEG); ETHANOL, URINE NEG (NEG)
[2018-01-04 10:16] LABS: CKMB MASS < 0.5 ng/mL (0.0-3.6); CREATINE KINASE 102 U/L (26-192)
[2018-01-04 11:20] LABS: URINE HCG POC HCG NEGATIVE (Negative)
== END 2018-01-04 11:49 | disposition home or self-care (01) ==
LOC: ER 08:25
DX: G43.A0 Cyclical vomiting, in migraine, not intractable (principal); F12.10 Cannabis abuse, uncomplicated; N39.0 Urinary tract infection, site not specified; K21.9 Gastro-esophageal reflux disease without esophagitis; I10 Essential (primary) hypertension; E66.9 Obesity, unspecified; G89.29 Other chronic pain; Z88.8 Allergy status to other drugs, medicaments and biological substances
CPT/HCPCS: 36415; 74022; 80053; 80307; 81001; 81025; 82553; 83690; 84484; 85025; 93005; 96361; 96374; 96375; 99285-25; G0480; J1630; J1885; J2405; J7030

== ENCOUNTER 2018-01-07 10:38 | Emergency (ER) | payer OTHER ==
[2018-01-07] MEDS ORDERED: ONDANSETRON PF 4 MG/2 ML VIAL. IV (11:30)
[2018-01-07] MEDS ORDERED: HALOPERIDOL LACTATE 5 MG/ML VIAL. IVP (11:30)
[2018-01-07] MEDS: PROMETHAZINE IM 25 MG/ML VIAL IM (12:11)
[2018-01-07] MEDS: HALOPERIDOL LACTATE 5 MG/ML VIAL. IM (12:11)
[2018-01-07] MEDS ORDERED: diphenhydrAMINE 50 MG/ML VIAL IVP (12:45)
[2018-01-07] MEDS: LIDO:MAALOX 1:1 20 ML SINGLE DOSE. SWSW (12:47)
[2018-01-07] MEDS: FAMOTIDINE 20 MG TABLET. PO (12:47)
[2018-01-07] MEDS: KETOROLAC 60 MG/2 ML INJ. IM (12:49)
[2018-01-07] MEDS: diphenhydrAMINE 50 MG/ML VIAL IM (12:56)
[2018-01-07 13:08] LABS: ADD MAN DIFF? NO
[2018-01-07 13:16] LABS: BASO # 0.1 x10^3/uL (0.0-0.2); BASO % 1 % (0-3); EOS # 0.1 x10^3/uL (0.0-0.7); EOS % 1 % (0-3); HEMATOCRIT 45.8 % (36.0-47.0); HEMOGLOBIN 15.9 g/dL (12.0-15.5); LYMPH # 4.1 x10^3/uL (1.0-4.8); LYMPH % 28 % (24-48); MEAN CORPUSCULAR HEMOGLOBIN 34 pg (25-35); MEAN CORPUSCULAR HGB CONC 35 g/dL (31-37); MEAN CORPUSCULAR VOLUME 98 fL (79-100); MONO # 0.5 x10^3/uL (0.0-1.1); MONO % 4 % (0-9); NEUT # 9.7 x10^3uL (1.8-7.7); NEUT % 67 % (31-73); PLATELET COUNT 299 x10^3/uL (140-400); RED BLOOD COUNT 4.65 x10^6/uL (3.50-5.40); RED CELL DISTRIBUTION WIDTH 13.2 % (11.5-14.5); WHITE BLOOD COUNT 14.6 x10^3/uL (4.0-11.0)
[2018-01-07 13:23] LABS: ANION GAP 19 (6-14); BLOOD UREA NITROGEN 12 mg/dL (7-20); BUN/CREATININE RATIO 13 (6-20); CALCIUM 10.2 mg/dL (8.5-10.1); CARBON DIOXIDE 17 mmol/L (21-32); CHLORIDE 103 mmol/L (98-107); CREATININE 0.9 mg/dL (0.6-1.0); GFR 86.7; GLUCOSE 100 mg/dL (70-99); POTASSIUM 3.8 mmol/L (3.5-5.1); SODIUM 139 mmol/L (136-145)
[2018-01-07 13:28] LABS: ETHANOL < 10 mg/dL (0-10)
[2018-01-07 13:30] LABS: ALBUMIN 4.4 g/dL (3.4-5.0); ALBUMIN/GLOBULIN RATIO 1.1 (1.0-1.7); ALK PHOS 92 U/L (46-116); ALT (SGPT) 25 U/L (14-59); AST (SGOT) 17 U/L (15-37); LIPASE 197 U/L (73-393); TOTAL BILIRUBIN 0.8 mg/dL (0.2-1.0); TOTAL PROTEIN 8.4 g/dL (6.4-8.2)
== END 2018-01-07 13:06 | disposition left against medical advice (07) ==
LOC: ER 13:06
DX: G43.A0 Cyclical vomiting, in migraine, not intractable (principal); K21.9 Gastro-esophageal reflux disease without esophagitis; I10 Essential (primary) hypertension; F12.10 Cannabis abuse, uncomplicated; Z88.8 Allergy status to other drugs, medicaments and biological substances
CPT/HCPCS: 36415; 80053; 83690; 85025; 96372; 99284-25; G0480; J1200; J1630; J1885; J2550

== ENCOUNTER 2018-02-21 17:48 | Emergency (ER) | payer OTHER ==
[2018-02-21 18:17] LABS: URINE HCG POC HCG NEGATIVE (Negative)
[2018-02-21 18:42] LABS: BILIRUBIN,URINE NEGATIVE (NEG); CLARITY,URINE CLEAR; COLOR,URINE YELLOW; GLUCOSE,URINE NEGATIVE (NEG); NITRITE,URINE NEGATIVE (NEG); PH,URINE 5.5; PROTEIN,URINE NEGATIVE (NEG-TRACE); UROBILINOGEN,URINE 0.2 mg/dL (0.2 mg/dL)
[2018-02-21 19:16] LABS: BACTERIA,URINE FEW /HPF (0-FEW); HYALINE CASTS, URINE OCCASIONAL /HPF; RBC,URINE OCC /HPF (0-2); SQUAMOUS EPITHELIAL CELL,UR MANY /LPF; WBC,URINE OCC /HPF (0-4)
[2018-02-21 19:59] LABS: BASO # 0.1 x10^3/uL (0.0-0.2); BASO % 1 % (0-3); EOS # 0.1 x10^3/uL (0.0-0.7); EOS % 1 % (0-3); HEMATOCRIT 42.9 % (36.0-47.0); HEMOGLOBIN 14.5 g/dL (12.0-15.5); LYMPH # 4.5 x10^3/uL (1.0-4.8); LYMPH % 22 % (24-48); MEAN CORPUSCULAR HEMOGLOBIN 33 pg (25-35); MEAN CORPUSCULAR HGB CONC 34 g/dL (31-37); MEAN CORPUSCULAR VOLUME 99 fL (79-100); MONO # 1.2 x10^3/uL (0.0-1.1); MONO % 6 % (0-9); NEUT # 14.9 x10^3uL (1.8-7.7); NEUT % 71 % (31-73); PLATELET COUNT 329 x10^3/uL (140-400); RED BLOOD COUNT 4.35 x10^6/uL (3.50-5.40); RED CELL DISTRIBUTION WIDTH 13.7 % (11.5-14.5); WHITE BLOOD COUNT 20.8 x10^3/uL (4.0-11.0)
[2018-02-21 20:04] LABS: ADD MAN DIFF? YES; ANION GAP 12 (6-14); BLOOD UREA NITROGEN 6 mg/dL (7-20); CALCIUM 9.7 mg/dL (8.5-10.1); CARBON DIOXIDE 23 mmol/L (21-32); CHLORIDE 104 mmol/L (98-107); CREATININE 0.8 mg/dL (0.6-1.0); GFR 99.4; GLUCOSE 99 mg/dL (70-99); POTASSIUM 3.7 mmol/L (3.5-5.1); SODIUM 139 mmol/L (136-145)
[2018-02-21 20:09] LABS: ALBUMIN 4.2 g/dL (3.4-5.0); ALK PHOS 86 U/L (46-116); ALT (SGPT) 23 U/L (14-59); AST (SGOT) 17 U/L (15-37); DIRECT BILIRUBIN 0.1 mg/dL (0.0-0.2); LIPASE 227 U/L (73-393); TOTAL BILIRUBIN 0.6 mg/dL (0.2-1.0); TOTAL PROTEIN 7.9 g/dL (6.4-8.2)
[2018-02-21] MEDS: IV NORMAL SALINE 1000ML BAG 1,000 ML IV (20:12)
[2018-02-21] MEDS: fentaNYL PF VIAL 100 MCG/2 ML VIAL IV ×2 (20:12→20:55)
[2018-02-21] MEDS: ONDANSETRON PF 4 MG/2 ML VIAL. IV (20:12)
[2018-02-21 21:15] LABS: % BANDS 1 % (0-9); % BASOS 1 % (0-3); % LYMPHS 26 % (24-48); % MONOS 5 % (0-10); % SEGS 67 % (35-66)
[2018-02-21 21:18] LABS: PLT ESTIMATE ADEQUATE (ADEQUATE)
[2018-02-21] MEDS: MORPHINE SULFATE 4 MG/ML DISP.SYRIN. IV (23:41)
== END 2018-02-22 00:22 | disposition home or self-care (01) ==
LOC: ER 02-22 00:22
DX: R10.2 Pelvic and perineal pain (principal); R11.2 Nausea with vomiting, unspecified; R19.7 Diarrhea, unspecified; K21.9 Gastro-esophageal reflux disease without esophagitis; I10 Essential (primary) hypertension; G89.29 Other chronic pain; Z88.8 Allergy status to other drugs, medicaments and biological substances
CPT/HCPCS: 36415; 74176; 76830; 76856; 80048; 80076; 81001; 81025; 83690; 85007; 85025; 96361; 96374; 96375; 96376; 99285-25; J2060; J2270; J2405; J3010; J7030

== ENCOUNTER 2018-02-23 04:47 | Emergency (ER) | payer OTHER ==
[2018-02-23] MEDS: LIDO:MAALOX 1:1 20 ML SINGLE DOSE. SWSW (05:26)
[2018-02-23] MEDS: diphenhydrAMINE 50 MG/ML VIAL IM (05:27)
[2018-02-23] MEDS: PROCHLORPERAZINE 10 MG/2 ML VIAL. IM (05:27)
[2018-02-23] MEDS: HALOPERIDOL LACTATE 5 MG/ML VIAL. IM (05:27)
[2018-02-23 05:28] LABS: BARBITURATES NEG (NEG); BENZODIAZEPINES NEG (NEG); CANNABINOIDS POS (NEG); COCAINE NEG (NEG); METHADONE NEG (NEG); OPIATES POS (NEG); PHENCYCLIDINE NEG (NEG)
[2018-02-23 05:44] LABS: AMPHETAMINE/METHAMPHETAMINE NEG (NEG); ETHANOL, URINE NEG (NEG)
== END 2018-02-23 07:47 | disposition home or self-care (01) ==
LOC: ER 04:47
DX: R10.9 Unspecified abdominal pain (principal); G89.29 Other chronic pain; R42 Dizziness and giddiness; R11.2 Nausea with vomiting, unspecified; K21.9 Gastro-esophageal reflux disease without esophagitis; I10 Essential (primary) hypertension; E66.9 Obesity, unspecified; Z68.32 Body mass index [BMI] 32.0-32.9, adult; Z88.8 Allergy status to other drugs, medicaments and biological substances
CPT/HCPCS: 80307; 96372; 99284; J0780; J1200; J1630

== ENCOUNTER 2018-04-17 11:43 | Emergency (ER) | payer OTHER ==
[~2018-04-17] VITALS: Ht 180.3 cm; Wt 117.9 kg
[~2018-04-17 11:43] MED LIST changes: +DEXT15CA37 PO; +FAMO-63 PO; +LISI-130 PO; -LISI40TA PO
[2018-04-17] MEDS ORDERED: IV NORMAL SALINE 1000ML BAG 1,000 ML IV SCH (12:21)
--- NOTE | 2018-04-17 12:29 | PHYS DOC ---
Past Medical History Past Medical History: GERD, Hypertension Additional Past Medical Histor: CYCLIC VOMITING SYNDROME, OBESITY, chronic pain Past Surgical History: No Surgical History Additional Past Surgical Histo: EGD. Alcohol Use: None Drug Use: Marijuana Adult General Chief Complaint Chief Complaint: ABDOMINAL PAIN HPI HPI Patient is a 32-year-old -[place] Citizen female who presents to the emergency department for evaluation. She states that she is having upper abdominal discomfort, which began yesterday, and states she has had multiple episodes of vomiting. She has a history of recurrent symptoms similar to this, in the setting of ongoing marijuana abuse, something she admits to today As well. She has not had any bloody emesis, or any stools. She has had numerous evaluations in the emergency department here in the past, with numerous negative radiographic studies, with the exception of mildly delayed gastric emptying on a nuclear medicine study recently. She did have a CT of her abdomen and pelvis in February which was negative. She denies any chest pain or shortness of breath, fevers, chills, vaginal bleeding or discharge. She denies any lower abdominal pain. Her pain is in her upper abdomen, without radiation, similar to her prior exacerbations of her chronic, recurrent hyperemesis. Other than as stated above , there are no alleviating, or exacerbating factors to her symptoms. The patient presented in the emergency room with a very dramatic presentation, yelling loudly for pain medication and gyrating on the bed. Review of Systems Review of Systems Constitutional: Denies fever or chills [] Eyes: Denies change in visual acuity, redness, or eye pain [] HENT: Denies nasal congestion or sore throat [] Respiratory: Denies cough or shortness of breath [] Cardiovascular: The patient denies any shortness of breath, chest pain, palpitations, or orthopnea[] GI: No additional information not addressed in HPI [] : Denies dysuria or hematuria [] Musculoskeletal: Denies back pain or joint pain [] Integument: Denies rash or skin lesions [] Neurologic: Denies headache, focal weakness or sensory changes [] Endocrine: Denies polyuria or polydipsia [] All other systems were reviewed and found to be within normal limits, except as documented in this note. Current Medications Current Medications Current Medications Medications (Trade) Dose Ordered Sig/Benita Start Time Stop Time Status Last Admin Dose Admin Haloperidol Lactate (Haldol Inj) 10 mg 1X ONCE 04/17/18 12:45 04/17/18 12:46 DC 04/17/18 12:50 10 MG Lorazepam (Ativan) 2 mg 1X ONCE 04/17/18 12:45 04/17/18 12:46 DC 04/17/18 12:50 2 MG Sodium Chloride 1,000 ml @ 1,000 mls/hr Q1H 04/17/18 12:21 04/17/18 13:20 DC Allergies Allergies Allergies Coded Allergies Type Severity Reaction Last Updated Verified metoclopramide HCl Allergy Intermediate 01/21/14 Yes Physical Exam Physical Exam PHYSICAL EXAM: CONSTITUTIONAL: Well developed, well nourished HEAD: normocephalic, atraumatic EENT: PERRL, EOMI. Conjunctivae normal color, sclerae non-icteric; moist mucous membranes. NECK: Supple, non-tender; no meningismus. LUNGS: Lungs CTA, breathing even and unlabored. Normal air movement. HEART: Regular rate and rhythm, no murmur CHEST: No deformity; non-tender ABDOMEN: The abdomen is soft, there is diffuse upper abdominal tenderness to palpation, without focal tenderness, rebound, or guarding, normal bowel sounds are present, the lower abdomen is relatively non-tender, no masses or bruits. EXTREM: Normal ROM; no deformity, no calf tenderness. Normal pulses palpable in all extremities. There is no pedal edema. SKIN: No rash; no diaphoresis NEURO: Alert; normal speech and cognition; CN's grossly intact; strength grossly intact without focal deficit. BACK: No CVA TTP. Current Patient Data Vital Signs Vital Signs Date Time Temp Pulse Resp B/P (MAP) Pulse Ox O2 Delivery O2 Flow Rate FiO2 04/17/18 11:44 98.0 122 26 136/65 (88) 100 Room Air 98.0 Lab Values Laboratory Tests Test 04/17/18 13:53 04/17/18 14:28 White Blood Count 19.3 x10^3/uL (4.0-11.0) H Red Blood Count 4.42 x10^6/uL (3.50-5.40) Hemoglobin 14.7 g/dL (12.0-15.5) Hematocrit 43.8 % (36.0-47.0) Mean Corpuscular Volume 99 fL (79-100) Mean Corpuscular Hemoglobin 33 pg (25-35) Mean Corpuscular Hemoglobin Concent 34 g/dL (31-37) Red Cell Distribution Width 13.6 % (11.5-14.5) Platelet Count 305 x10^3/uL (140-400) Neutrophils (%) (Auto) 79 % (31-73) H Lymphocytes (%) (Auto) 15 % (24-48) L Monocytes (%) (Auto) 5 % (0-9) Eosinophils (%) (Auto) 1 % (0-3) Basophils (%) (Auto) 1 % (0-3) Neutrophils # (Auto) 15.2 x10^3uL (1.8-7.7) H Lymphocytes # (Auto) 3.0 x10^3/uL (1.0-4.8) Monocytes # (Auto) 0.9 x10^3/uL (0.0-1.1) Eosinophils # (Auto) 0.1 x10^3/uL (0.0-0.7) Basophils # (Auto) 0.1 x10^3/uL (0.0-0.2) Segmented Neutrophils % 81 % (35-66) H Lymphocytes % 15 % (24-48) L Monocytes % 4 % (0-10) Toxic Granulation Slight Platelet Estimate Adequate (ADEQUATE) Sodium Level 139 mmol/L (136-145) Potassium Level 3.7 mmol/L (3.5-5.1) Chloride Level 104 mmol/L (98-107) Carbon Dioxide Level 24 mmol/L (21-32) Anion Gap 11 (6-14) Blood Urea Nitrogen 7 mg/dL (7-20) Creatinine 0.7 mg/dL (0.6-1.0) Estimated GFR (Cockcroft-Gault) 115.9 BUN/Creatinine Ratio 10 (6-20) Glucose Level 105 mg/dL (70-99) H Calcium Level 10.0 mg/dL (8.5-10.1) Total Bilirubin 0.8 mg/dL (0.2-1.0) Aspartate Amino Transferase (AST) 14 U/L (15-37) L Alanine Aminotransferase (ALT) 24 U/L (14-59) Alkaline Phosphatase 87 U/L (46-116) Total Protein 8.2 g/dL (6.4-8.2) Albumin 4.4 g/dL (3.4-5.0) Albumin/Globulin Ratio 1.2 (1.0-1.7) Lipase 138 U/L (73-393) Serum Test, Qualitative Negative (NEG) Urine Collection Type Unknown Urine Color Yellow Urine Clarity Cloudy Urine pH 6.0 Urine Specific Newman >=1.030 Urine Protein 30 mg/dL (NEG-TRACE) Urine Glucose (UA) Negative mg/dL (NEG) Urine Ketones (Stick) 40 mg/dL (NEG) Urine Blood Negative (NEG) Urine Nitrite Negative (NEG) Urine Bilirubin Negative (NEG) Urine Urobilinogen Dipstick 1.0 mg/dL (0.2 mg/dL) Urine Leukocyte Esterase Small (NEG) Urine RBC 0 /HPF (0-2) Urine WBC 5-10 /HPF (0-4) Urine Squamous Epithelial Cells Many /LPF Urine Bacteria Many /HPF (0-FEW) Urine Mucus Marked /LPF Urine Opiates Screen Neg (NEG) Urine Methadone Screen Neg (NEG) Urine Barbiturates Neg (NEG) Urine Phencyclidine Screen Neg (NEG) Urine Amphetamine/Methamphetamine Neg (NEG) Urine Benzodiazepines Screen Neg (NEG) Urine Cocaine Screen Neg (NEG) Urine Cannabinoids Screen Pos (NEG) Urine Ethyl Alcohol Neg (NEG) Laboratory Tests 04/17/18 13:53 Laboratory Tests 04/17/18 13:53 EKG EKG [Normal sinus rhythm at a rate of 94 beats for minute, normal axis, normal intervals, there are no acute ischemic ST/T changes.] Radiology/Procedures Radiology/Procedures [] Course & Med Decision Making Course & Med Decision Making Pertinent Labs and prior Imaging studies reviewed. (See chart for details) [The patient's condition remained stable. Her symptoms have significantly improved and she is much more calm at this time. She has had no emesis in the emergency department. Her leukocytosis is chronic and not significantly different than her prior values. Her abdomen is benign at this time and I am not highly suspicious that she has an acute inflammatory infectious process in her abdomen. I'm more concerned about the repeated radiation exposure, given her multiple CTs at this in other facilities. I discussed importance of marijuana cessation with the patient and the likely will thus placed in her symptoms. She told them not the first one to tell her this. I discussed test results in detail, the need for close further outpatient follow-up and return precautions.] Dragon Disclaimer Dragon Disclaimer This electronic medical record was generated, in whole or in part, using a voice recognition dictation system. Departure Departure Impression: Primary Impression: Cannabinoid hyperemesis syndrome Disposition: HOME, SELF-CARE Condition: LEFT WITHOUT BEING SEEN Referrals: NO PCP (PCP) Patient Instructions: Abdominal Pain, Marijuana Abuse and Chemical Dependency, Marijuana Abuse-Brief Scripts Ondansetron (ZOFRAN ODT) 4 Mg Tab.rapdis 1 TAB SL Q8HRS, #15 TAB Prov: TU VUONG MD 04/17/18 TU VUONG MD Apr 17, 2018 12:29
[2018-04-17] MEDS ORDERED: HALOPERIDOL LACTATE 5 MG/ML VIAL. IVP ONE (12:30)
[2018-04-17] MEDS ORDERED: HALOPERIDOL LACTATE 5 MG/ML VIAL. IM ONE (12:45)
--- NOTE | 2018-04-17 13:36 | EKG ---
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
[2018-04-17 14:00] LABS: BASO # 0.1 x10^3/uL (0.0-0.2); BASO % 1 % (0-3); EOS # 0.1 x10^3/uL (0.0-0.7); EOS % 1 % (0-3); HEMATOCRIT 43.8 % (36.0-47.0); HEMOGLOBIN 14.7 g/dL (12.0-15.5); LYMPH % 15 % (24-48); MEAN CORPUSCULAR HEMOGLOBIN 33 pg (25-35); MEAN CORPUSCULAR HGB CONC 34 g/dL (31-37); MEAN CORPUSCULAR VOLUME 99 fL (79-100); MONO # 0.9 x10^3/uL (0.0-1.1); MONO % 5 % (0-9); NEUT # 15.2 x10^3uL (1.8-7.7); NEUT % 79 % (31-73); PLATELET COUNT 305 x10^3/uL (140-400); RED BLOOD COUNT 4.42 x10^6/uL (3.50-5.40); RED CELL DISTRIBUTION WIDTH 13.6 % (11.5-14.5); WHITE BLOOD COUNT 19.3 x10^3/uL (4.0-11.0)
[2018-04-17 14:16] LABS: CREATININE 0.7 mg/dL (0.6-1.0); GFR 115.9; POTASSIUM 3.7 mmol/L (3.5-5.1)
[2018-04-17 14:17] LABS: PREG TEST PT QUAL NEGATIVE (NEG)
[2018-04-17 14:19] LABS: ALBUMIN 4.4 g/dL (3.4-5.0); ALBUMIN/GLOBULIN RATIO 1.2 (1.0-1.7); TOTAL BILIRUBIN 0.8 mg/dL (0.2-1.0); TOTAL PROTEIN 8.2 g/dL (6.4-8.2)
[2018-04-17 14:42] LABS: BILIRUBIN,URINE NEGATIVE (NEG); CLARITY,URINE CLOUDY; COLOR,URINE YELLOW; NITRITE,URINE NEGATIVE (NEG); PROTEIN,URINE 30 mg/dL (NEG-TRACE)
[2018-04-17 14:50] LABS: AMPHETAMINE/METHAMPHETAMINE NEG (NEG); BARBITURATES NEG (NEG); BENZODIAZEPINES NEG (NEG); CANNABINOIDS POS (NEG); COCAINE NEG (NEG); METHADONE NEG (NEG); OPIATES NEG (NEG); PHENCYCLIDINE NEG (NEG)
[2018-04-17 14:52] LABS: BACTERIA,URINE MANY /HPF (0-FEW); RBC,URINE 0 /HPF (0-2); SQUAMOUS EPITHELIAL CELL,UR MANY /LPF
[2018-04-17 15:04] LABS: % LYMPHS 15 % (24-48); % MONOS 4 % (0-10); % SEGS 81 % (35-66)
[2018-04-17 15:05] LABS: PLT ESTIMATE ADEQUATE (ADEQUATE)
[2018-04-17 15:06] LABS: TOXIC GRANULATION SLIGHT
[2018-04-17] MEDS ORDERED: ONDA4TAB10 SL (15:53)
[2018-04-17 16:18] VITALS: BP 154/83
== END 2018-04-17 16:55 | disposition home or self-care (01) ==
LOC: ER 11:43
DX: R11.10 Vomiting, unspecified (principal); F12.10 Cannabis abuse, uncomplicated; R10.84 Generalized abdominal pain; K21.9 Gastro-esophageal reflux disease without esophagitis; I10 Essential (primary) hypertension; G89.29 Other chronic pain; Z88.8 Allergy status to other drugs, medicaments and biological substances
CPT/HCPCS: 36415; 80053; 80307; 81001; 83690; 84703; 85007; 85025; 87086; 93005; 96372; 99285; J1630; J2060; G0479

== ENCOUNTER 2018-04-22 09:48 | Emergency (ER) | payer OTHER ==
[~2018-04-22] VITALS: Ht 172.7 cm; Wt 117.9 kg
--- NOTE | 2018-04-22 10:04 | PHYS DOC ---
Past Medical History Past Medical History: GERD, Hypertension Additional Past Medical Histor: CYCLIC VOMITING SYNDROME, OBESITY, chronic pain Past Surgical History: No Surgical History Additional Past Surgical Histo: EGD. Alcohol Use: None Drug Use: Marijuana Adult General Chief Complaint Chief Complaint: ABDOMINAL PAIN HPI HPI Patient is a 32 year old female with a history of cyclic vomiting presents to the ED complaining of vomiting that started last night. Patient seen and evaluated in the ED 5 days ago. States she was up all night last night vomiting. States she vomited when she ate for dinner and has been dry heaving since. States same symptoms as previous exacerbations of her cyclic vomiting. Patient states she has not been using marijuana this week. Denies abdominal pain , chest pain, shortness of breath, dizziness, weakness, headache, dysuria, diarrhea or fever. Review of Systems Review of Systems Constitutional: Denies fever or chills [] Eyes: Denies change in visual acuity, redness, or eye pain [] HENT: Denies nasal congestion or sore throat [] Respiratory: Denies cough or shortness of breath [] Cardiovascular: No additional information not addressed in HPI [] GI: Complains of nausea and vomiting. Denies abdominal pain, bloody stools or diarrhea [] : Denies dysuria or hematuria [] Musculoskeletal: Denies back pain or joint pain [] Integument: Denies rash or skin lesions [] Neurologic: Denies headache, focal weakness or sensory changes [] Endocrine: Denies polyuria or polydipsia [] All other systems were reviewed and found to be within normal limits, except as documented in this note. Current Medications Current Medications Current Medications Medications (Trade) Dose Ordered Sig/Benita Start Time Stop Time Status Last Admin Dose Admin Haloperidol Lactate (Haldol Inj) 5 mg 1X ONCE 04/22/18 10:45 04/22/18 10:46 DC 04/22/18 10:34 5 MG Lorazepam (Ativan) 2 mg 1X ONCE 04/22/18 10:45 04/22/18 10:46 DC 04/22/18 10:34 2 MG Ondansetron HCl (Zofran Odt) 4 mg 1X ONCE 04/22/18 10:45 04/22/18 10:46 DC 04/22/18 10:34 4 MG Ondansetron HCl (Zofran) 4 mg 1X ONCE 04/22/18 10:30 04/22/18 10:30 DC Potassium Chloride (Klor-Con) 40 meq 1X ONCE 04/22/18 12:00 04/22/18 12:01 DC 04/22/18 12:19 40 MEQ Sodium Chloride 1,000 ml @ 1,000 mls/hr 1X ONCE 04/22/18 10:30 04/22/18 10:30 DC Allergies Allergies Allergies Coded Allergies Type Severity Reaction Last Updated Verified metoclopramide HCl Allergy Intermediate 01/21/14 Yes Physical Exam Physical Exam Constitutional: Well developed, well nourished, no acute distress, non-toxic appearance. [] HENT: Normocephalic, atraumatic Neck: Normal range of motion, no tenderness, supple, no stridor. [] Cardiovascular:Heart rate regular rhythm, no murmur [] Lungs & Thorax: Bilateral breath sounds clear to auscultation [] Abdomen: Bowel sounds normal, soft, no tenderness, no masses, no pulsatile masses. [] Skin: Warm, dry, no erythema, no rash. [] Back: No tenderness, no CVA tenderness. [] Extremities: No tenderness, no cyanosis, no clubbing, ROM intact, no edema. [] Neurologic: Alert and oriented X 3, normal motor function, normal sensory function, no focal deficits noted. [] Psychologic: Affect normal, judgement normal, mood normal. [] Current Patient Data Vital Signs Vital Signs Date Time Temp Pulse Resp B/P (MAP) Pulse Ox O2 Delivery O2 Flow Rate FiO2 04/22/18 12:30 78 16 132/77 (95) 100 Room Air 04/22/18 09:54 98.9 98.9 Lab Values Laboratory Tests Test 04/22/18 10:25 White Blood Count 12.9 x10^3/uL (4.0-11.0) H Red Blood Count 4.40 x10^6/uL (3.50-5.40) Hemoglobin 15.0 g/dL (12.0-15.5) Hematocrit 42.9 % (36.0-47.0) Mean Corpuscular Volume 97 fL (79-100) Mean Corpuscular Hemoglobin 34 pg (25-35) Mean Corpuscular Hemoglobin Concent 35 g/dL (31-37) Red Cell Distribution Width 13.2 % (11.5-14.5) Platelet Count 257 x10^3/uL (140-400) Neutrophils (%) (Auto) 66 % (31-73) Lymphocytes (%) (Auto) 25 % (24-48) Monocytes (%) (Auto) 7 % (0-9) Eosinophils (%) (Auto) 2 % (0-3) Basophils (%) (Auto) 1 % (0-3) Neutrophils # (Auto) 8.5 x10^3uL (1.8-7.7) H Lymphocytes # (Auto) 3.2 x10^3/uL (1.0-4.8) Monocytes # (Auto) 1.0 x10^3/uL (0.0-1.1) Eosinophils # (Auto) 0.2 x10^3/uL (0.0-0.7) Basophils # (Auto) 0.1 x10^3/uL (0.0-0.2) Sodium Level 133 mmol/L (136-145) L Potassium Level 2.5 mmol/L (3.5-5.1) *L Chloride Level 96 mmol/L (98-107) L Carbon Dioxide Level 26 mmol/L (21-32) Anion Gap 11 (6-14) Blood Urea Nitrogen 14 mg/dL (7-20) Creatinine 0.9 mg/dL (0.6-1.0) Estimated GFR (Cockcroft-Gault) 86.7 BUN/Creatinine Ratio 16 (6-20) Glucose Level 124 mg/dL (70-99) H Calcium Level 9.3 mg/dL (8.5-10.1) Total Bilirubin 1.2 mg/dL (0.2-1.0) H Aspartate Amino Transferase (AST) 27 U/L (15-37) Alanine Aminotransferase (ALT) 45 U/L (14-59) Alkaline Phosphatase 78 U/L (46-116) Total Protein 7.7 g/dL (6.4-8.2) Albumin 4.2 g/dL (3.4-5.0) Albumin/Globulin Ratio 1.2 (1.0-1.7) Lipase 214 U/L (73-393) Laboratory Tests 04/22/18 10:25 Laboratory Tests 04/22/18 10:25 EKG EKG [] Radiology/Procedures Radiology/Procedures [] Course & Med Decision Making Course & Med Decision Making Pertinent Labs and Imaging studies reviewed. (See chart for details) Patient requests to speak with PAT team for her depression. Ashly called and at bedside evaluating patient. States patient is not homicidal, suicidal or having hallucinations. Patient given clinic follow-up information. []Discussed lab findings with patient. Patient given by 80 mg mouth potassium in the ED. Will discharge with 20 mg daily for 5 days. Patient states she is feeling much better. No active vomiting. Tolerating by mouth. On re-examination , abdomen is soft nontender nondistended. No peritoneal signs. Discussed symptomatic treatment outpatient. Discussed follow-up and reasons to return to the ED. Patient understands and agrees with plan. Staff Physician Addendum: I was working in the ER during the course of this patient's visit. I was available for consultation as needed, but I was not directly involved in the care of this patient. Juan José Corbin DO Staff Physician Yesenia Disclaimer Dragon Disclaimer This electronic medical record was generated, in whole or in part, using a voice recognition dictation system. Departure Departure Impression: Primary Impression: Cyclical vomiting Additional Impression: Acute hypokalemia Disposition: HOME, SELF-CARE Condition: IMPROVED Referrals: NO PCP (PCP) KHOA LOPEZ MD Patient Instructions: Cyclic Vomiting Syndrome, Hypokalemia Scripts Potassium Chloride (POTASSIUM CHLORIDE) 20 Meq Tablet.er 20 MEQ PO DAILY for 5 Days, #5 TAB.SR Prov: KLEVER SUAZO 04/22/18 Problem Qualifiers KLEVER SUAZO Apr 22, 2018 10:04 JUAN JOSÉ CORBIN DO Apr 23, 2018 06:29
[2018-04-22] MEDS ORDERED: IV NORMAL SALINE 1000ML BAG 1,000 ML IV ONE (10:30)
[2018-04-22] MEDS ORDERED: ONDANSETRON PF 4 MG/2 ML VIAL. IV ONE (10:30)
[2018-04-22] MEDS ORDERED: HALOPERIDOL LACTATE 5 MG/ML VIAL. IVP ONE (10:30)
[2018-04-22 10:35] LABS: BASO # 0.1 x10^3/uL (0.0-0.2); BASO % 1 % (0-3); EOS # 0.2 x10^3/uL (0.0-0.7); EOS % 2 % (0-3); HEMATOCRIT 42.9 % (36.0-47.0); LYMPH # 3.2 x10^3/uL (1.0-4.8); LYMPH % 25 % (24-48); MEAN CORPUSCULAR HEMOGLOBIN 34 pg (25-35); MEAN CORPUSCULAR HGB CONC 35 g/dL (31-37); MEAN CORPUSCULAR VOLUME 97 fL (79-100); MONO % 7 % (0-9); NEUT # 8.5 x10^3uL (1.8-7.7); NEUT % 66 % (31-73); PLATELET COUNT 257 x10^3/uL (140-400); RED CELL DISTRIBUTION WIDTH 13.2 % (11.5-14.5); WHITE BLOOD COUNT 12.9 x10^3/uL (4.0-11.0)
[2018-04-22] MEDS ORDERED: ONDANSETRON ODT 4 MG TAB.RAPDIS. PO ONE (10:45)
[2018-04-22] MEDS ORDERED: HALOPERIDOL LACTATE 5 MG/ML VIAL. IM ONE (10:45)
[2018-04-22 10:55] LABS: ALBUMIN 4.2 g/dL (3.4-5.0); ALBUMIN/GLOBULIN RATIO 1.2 (1.0-1.7); CALCIUM 9.3 mg/dL (8.5-10.1); CREATININE 0.9 mg/dL (0.6-1.0); GFR 86.7; TOTAL BILIRUBIN 1.2 mg/dL (0.2-1.0); TOTAL PROTEIN 7.7 g/dL (6.4-8.2)
[2018-04-22 11:01] LABS: POTASSIUM 2.5 mmol/L (3.5-5.1)
[2018-04-22] MEDS ORDERED: POTASSIUM CHLORIDE 20 MEQ TABLET.ER. PO ONE ×2 (11:30→12:00)
[2018-04-22 12:30] VITALS: BP 132/77
[2018-04-22] MEDS ORDERED: POTA20TA82 PO (12:34)
== END 2018-04-22 12:44 | disposition home or self-care (01) ==
LOC: ER 09:48
DX: G43.A0 Cyclical vomiting, in migraine, not intractable (principal); E87.6 Hypokalemia; K21.9 Gastro-esophageal reflux disease without esophagitis; I10 Essential (primary) hypertension; E66.9 Obesity, unspecified; Z68.39 Body mass index [BMI] 39.0-39.9, adult
CPT/HCPCS: 36415; 80053; 83690; 85025; 96372; 99284; J1630; J2060; Q0162

== ENCOUNTER 2018-04-29 07:24 | Emergency (ER) | payer OTHER ==
[~2018-04-29] VITALS: Ht 180.3 cm; Wt 108.9 kg
[2018-04-29 07:24] VITALS: BP 153/95
[~2018-04-29 07:24] MED LIST changes: +POTA20TA82 PO
[2018-04-29] MEDS ORDERED: HALOPERIDOL LACTATE 5 MG/ML VIAL. IM ONE (08:15)
[2018-04-29 09:48] LABS: CALCIUM 9.1 mg/dL (8.5-10.1); CREATININE 0.8 mg/dL (0.6-1.0); GFR 99.4; POTASSIUM 3.4 mmol/L (3.5-5.1)
[2018-04-29 09:55] LABS: ALBUMIN 3.8 g/dL (3.4-5.0); ALBUMIN/GLOBULIN RATIO 1.1 (1.0-1.7); TOTAL BILIRUBIN 0.3 mg/dL (0.2-1.0); TOTAL PROTEIN 7.2 g/dL (6.4-8.2)
--- NOTE | 2018-04-29 10:42 | PHYS DOC ---
Past Medical History Past Medical History: GERD, Hypertension Additional Past Medical Histor: CYCLIC VOMITING SYNDROME, OBESITY, chronic pain Past Surgical History: No Surgical History Additional Past Surgical Histo: EGD. Alcohol Use: None Drug Use: Marijuana Adult General Chief Complaint Chief Complaint: ABDOMINAL PAIN HPI HPI Patient is a 32 year old female brought in by ambulance with vomiting. Patient has been vomiting all night apparently she smokes marijuana every day she is here regularly. She claims upper abdominal pain and frequent vomiting. History is limited by the patient's anxiety and agitation. Review of Systems Review of Systems Limited by agitation Current Medications Current Medications Current Medications Medications (Trade) Dose Ordered Sig/Benita Start Time Stop Time Status Last Admin Dose Admin Haloperidol Lactate (Haldol Inj) 5 mg 1X ONCE 04/29/18 08:15 04/29/18 08:16 DC 04/29/18 07:51 5 MG Lorazepam (Ativan) 1 mg 1X ONCE 04/29/18 08:45 04/29/18 08:46 DC 04/29/18 08:16 1 MG Allergies Allergies Allergies Coded Allergies Type Severity Reaction Last Updated Verified metoclopramide HCl Allergy Intermediate 01/21/14 Yes Physical Exam Physical Exam Constitutional: Well developed, well nourished, patient is writhing on the bed HENT: Normocephalic, atraumatic, bilateral external ears normal, oropharynx moist, no oral exudates, nose normal. [] Eyes: PERRLA, EOMI, conjunctiva normal, no discharge. [] Neck: Normal range of motion, no tenderness, supple, no stridor. [] Pulmonary: Normal respiratory effort no increased work of breathing no obvious chest wall trauma Abdomen: Bowel sounds normal, soft, epigastric tenderness, no masses, no pulsatile masses. [] Skin: Warm, dry, no erythema, no rash. [] Back: No tenderness, no CVA tenderness. [] Extremities: No tenderness, no cyanosis, no clubbing, ROM intact, no edema. [] Neurologic: Alert and oriented X 3, normal motor function, normal sensory function, no focal deficits noted. [] Psychologic: Very anxious Current Patient Data Vital Signs Vital Signs Date Time Temp Pulse Resp B/P (MAP) Pulse Ox O2 Delivery O2 Flow Rate FiO2 04/29/18 07:24 98.7 115 30 153/95 (114) 97 Room Air 98.7 Lab Values Laboratory Tests Test 04/29/18 09:10 Maternal Serum HCG Beta Subunit < 1 mIU/mL (0-5) Sodium Level 136 mmol/L (136-145) Potassium Level 3.4 mmol/L (3.5-5.1) L Chloride Level 102 mmol/L (98-107) Carbon Dioxide Level 26 mmol/L (21-32) Anion Gap 8 (6-14) Blood Urea Nitrogen 8 mg/dL (7-20) Creatinine 0.8 mg/dL (0.6-1.0) Estimated GFR (Cockcroft-Gault) 99.4 BUN/Creatinine Ratio 10 (6-20) Glucose Level 100 mg/dL (70-99) H Calcium Level 9.1 mg/dL (8.5-10.1) Total Bilirubin 0.3 mg/dL (0.2-1.0) Aspartate Amino Transferase (AST) 15 U/L (15-37) Alanine Aminotransferase (ALT) 33 U/L (14-59) Alkaline Phosphatase 70 U/L (46-116) Total Protein 7.2 g/dL (6.4-8.2) Albumin 3.8 g/dL (3.4-5.0) Albumin/Globulin Ratio 1.1 (1.0-1.7) Laboratory Tests 04/29/18 09:10 EKG EKG [] Radiology/Procedures Radiology/Procedures [] Course & Med Decision Making Course & Med Decision Making Pertinent Labs and Imaging studies reviewed. (See chart for details) []32-year-old female presenting with cyclic vomiting syndrome. History of same. He has had CT and workup said been negative to date patient is a heavy cannabis user. Labwork was essentially looking pretty good. Patient received Haldol in the emergency room and some Ativan with improvement. I counseled the patient several times and the importance of even just considering a trial of cannabis cessation to see if this will help Dragon Disclaimer Melindaon Disclaimer This electronic medical record was generated, in whole or in part, using a voice recognition dictation system. Departure Departure Impression: Primary Impression: Cyclical vomiting Additional Impression: Abdominal pain Disposition: HOME, SELF-CARE Condition: STABLE Referrals: NO PCP (PCP) Patient Instructions: Cyclic Vomiting Syndrome Additional Instructions: Please stop smoking marijuana. it is very likely that you have cannabis hyperemesis Problem Qualifiers LIDA RANDOLPH MD Apr 29, 2018 10:42
== END 2018-04-29 10:42 | disposition home or self-care (01) ==
LOC: ER 07:24
DX: R10.13 Epigastric pain (principal); G43.A0 Cyclical vomiting, in migraine, not intractable; F41.9 Anxiety disorder, unspecified; R45.1 Restlessness and agitation; I10 Essential (primary) hypertension; K21.9 Gastro-esophageal reflux disease without esophagitis; G89.29 Other chronic pain; Z88.8 Allergy status to other drugs, medicaments and biological substances
CPT/HCPCS: 36415; 80053; 84702; 96372; 99284; J1630; J2060

== ENCOUNTER 2018-05-20 10:35 | Emergency (ER) | payer OTHER ==
--- NOTE | 2018-05-20 11:35 | PHYS DOC ---
Past Medical History Past Medical History: GERD, Hypertension Additional Past Medical Histor: CYCLIC VOMITING SYNDROME, OBESITY, chronic pain Past Surgical History: No Surgical History Additional Past Surgical Histo: EGD. Alcohol Use: None Drug Use: Marijuana Adult General Chief Complaint Chief Complaint: NAUSEA/VOMITING/DIARRHA HPI HPI 32 y/o female who is well known in ER for multiple visits associated with her cyclic vomiting returns with c/o similar sxs. Pt on initial exam by this provider is thrashing back and forth on ER cart. With questioning regarding pt' s marijuana use and daily medications pt after questioning on marijuana use was having oral temperature taken by RN when this provider verbalized that I had read previous ER reports in her record with last visit 04/29 and multiple mentions in report regarding marijuana use. Pt spit the thermometer out of her mouth and began cussing at this provider- stating "I said I haven't been fucking smoking". When this provider attempted to have pt calm down in order for assessment to be done- again started questioning regarding home medications , f/u since her last ER visit, and cyclic vomiting/marijuana use. Pt started loudly and rudely cussing at this provider stating "white fucking bitch I told you I haven't fucking smoked just take care of me" she then stated "I come for here for you to take care of me and don't need you asking more questions just take care of me do you not understand that you fucking white bitch". At this point pt was informed that her behavior would not be tolerated and that if she couldn't calm herself down without rude/cussing remarks then she could leave as her behavior was unacceptable. Pt when told this started removing her BP cuff, O2 probe, and school lunch monitor throwing the equipment across room. She sat up in the bed without difficulty becoming louder with additional "white fucking bitch " comments toward this provider. After several times of being addressed as such this provider requested security as pt's behavior continued to escalate where she stood and began tossing items around room. This provider left room and this was discussed with Dr. Mcdaniel as pt was continued to be heard screaming and yelling profanities. During this encounter pt was A&Ox3 with clear speech. She was repositioning herself on ER cart without assist and had no difficulty sitting up on cart. Pt was nontoxic in appearance. Review of Systems Review of Systems Allergies Allergies Allergies Coded Allergies Type Severity Reaction Last Updated Verified metoclopramide HCl Allergy Intermediate 01/21/14 Yes Physical Exam Physical Exam Unable to complete full exam as pt became aggressive and verbally assaulting during initial encounter which did not allow for full ROS or exam Constitutional: Well developed, well nourished, non-toxic appearance. [] Extremities: full ROM all extremities Neurologic: Alert and oriented X 3, normal motor function, normal sensory function, no focal deficits EKG EKG [] Radiology/Procedures Radiology/Procedures [] Course & Med Decision Making Course & Med Decision Making Dragon Disclaimer Dragon Disclaimer This electronic medical record was generated, in whole or in part, using a voice recognition dictation system. Departure Departure Disposition: 07 AGAINST MEDICAL ADVICE (eloped without exam/care) Condition: GUARDED (eloped without exam/care- left without ama paperwork) Referrals: NO PCP (PCP) JOSSELYN LOUISE APRN May 20, 2018 11:35
== END 2018-05-20 11:10 | disposition left against medical advice (07) ==
LOC: ER 10:35
DX: G43.A0 Cyclical vomiting, in migraine, not intractable (principal); K21.9 Gastro-esophageal reflux disease without esophagitis; I10 Essential (primary) hypertension; G89.29 Other chronic pain; F12.90 Cannabis use, unspecified, uncomplicated; Z88.8 Allergy status to other drugs, medicaments and biological substances
CPT/HCPCS: 99281

== ENCOUNTER 2018-06-27 10:20 | Emergency (ER) | payer OTHER ==
[~2018-06-27] VITALS: Ht 154.9 cm; Wt 122.5 kg
[2018-06-27] MEDS ORDERED: IV NORMAL SALINE 1000ML BAG 1,000 ML IV SCH (10:42)
[2018-06-27] MEDS ORDERED: ONDANSETRON PF 4 MG/2 ML VIAL. IV ONE (10:45)
[2018-06-27] MEDS ORDERED: HALOPERIDOL LACTATE 5 MG/ML VIAL. IVP ONE (10:45)
[2018-06-27] MEDS ORDERED: diphenhydrAMINE HCL 25 MG CAPSULE PO ONE (10:45)
--- NOTE | 2018-06-27 10:47 | EKG ---
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
--- NOTE | 2018-06-27 10:54 | PHYS DOC ---
Past Medical History Past Medical History: GERD, Hypertension Additional Past Medical Histor: CYCLIC VOMITING SYNDROME, OBESITY, chronic pain Past Surgical History: No Surgical History Additional Past Surgical Histo: EGD. Alcohol Use: None Drug Use: Marijuana Adult General Chief Complaint Chief Complaint: CHEST PAIN HPI HPI Patient is a 32-year-old -[place] female who is familiar to me from a very memorable ER visit several months ago, with a past history of cyclic vomiting syndrome in the setting of continued marijuana use, who presents to the emergency department for evaluation of epigastric abdominal pain, radiating up into her chest. She states she has been having similar pain on and off for several months. This episode in particular began this morning. This episode is no different than her prior episodes that she has experienced. She states that she has vomited once today but has not had any blood in her emesis. She denies any fevers or chills. She denies any pleuritic chest pain shortness of breath. There are no alleviating, or exacerbating factors to her symptoms. The patient does admit to continued marijuana use stating that this helps her abdominal pain. She is resistant to the idea that ongoing marijuana use might be contributing to her recurrent episodes of abdominal pain and vomiting. Review of Systems Review of Systems Constitutional: Denies fever or chills [] Eyes: Denies change in visual acuity, redness, or eye pain [] HENT: Denies nasal congestion or sore throat [] Respiratory: Denies cough or shortness of breath [] Cardiovascular: No additional information not addressed in HPI [] GI: Denies bloody emesis, bloody stools or diarrhea [] : Denies dysuria or hematuria [] Musculoskeletal: Denies back pain or joint pain [] Integument: Denies rash or skin lesions [] Neurologic: Denies headache, focal weakness or sensory changes [] Endocrine: Denies polyuria or polydipsia [] All other systems were reviewed and found to be within normal limits, except as documented in this note. Current Medications Current Medications Current Medications Medications (Trade) Dose Ordered Sig/Benita Start Time Stop Time Status Last Admin Dose Admin Acetaminophen (Tylenol) 1,000 mg 1X ONCE 06/27/18 12:45 06/27/18 13:44 DC 06/27/18 13:47 1,000 MG Diphenhydramine HCl (Benadryl) 25 mg 1X ONCE 06/27/18 10:45 06/27/18 10:48 DC 06/27/18 13:46 25 MG Haloperidol Lactate (Haldol Inj) 5 mg 1X ONCE 06/27/18 10:45 06/27/18 10:48 DC Ondansetron HCl (Zofran Odt) 4 mg STK-MED ONCE 06/27/18 12:20 06/27/18 12:59 DC Ondansetron HCl (Zofran) 4 mg 1X ONCE 06/27/18 10:45 06/27/18 10:48 DC Sodium Chloride 1,000 ml @ 1,000 mls/hr Q1H 06/27/18 10:42 06/27/18 11:41 DC Allergies Allergies Allergies Coded Allergies Type Severity Reaction Last Updated Verified metoclopramide HCl Allergy Intermediate 01/21/14 Yes Physical Exam Physical Exam PHYSICAL EXAM: CONSTITUTIONAL: Well developed, well nourished HEAD: normocephalic, atraumatic EENT: PERRL, EOMI. Conjunctivae normal color, sclerae non-icteric; moist mucous membranes. NECK: Supple, non-tender; no meningismus. LUNGS: Lungs CTA, breathing even and unlabored. Normal air movement. HEART: Regular rate and rhythm, no murmur CHEST: No deformity; non-tender ABDOMEN: The abdomen is soft, there is mild diffuse upper abdominal tenderness to palpation, without focal tenderness, rebound, or guarding, normal bowel sounds are present, the lower abdomen is soft and nontender, no masses or bruits. EXTREM: Normal ROM; no deformity, no calf tenderness. Normal pulses palpable in all extremities. There is no pedal edema. SKIN: No rash; no diaphoresis NEURO: Alert; normal speech and cognition; CN's grossly intact; strength grossly intact without focal deficit. BACK: No CVA TTP. PSYCHIATRIC: The patient exhibits a moderately anxious affect Current Patient Data Vital Signs Vital Signs Date Time Temp Pulse Resp B/P (MAP) Pulse Ox O2 Delivery O2 Flow Rate FiO2 06/27/18 10:22 97.9 105 20 131/90 (104) 96 Nasal Cannula 2.0 97.9 Lab Values Laboratory Tests Test 06/27/18 12:10 06/27/18 12:18 Serum Test, Qualitative Negative (NEG) Sodium Level 142 mmol/L (136-145) Potassium Level 4.0 mmol/L (3.5-5.1) Chloride Level 105 mmol/L (98-107) Carbon Dioxide Level 23 mmol/L (21-32) Anion Gap 14 (6-14) Blood Urea Nitrogen 8 mg/dL (7-20) Creatinine 0.9 mg/dL (0.6-1.0) Estimated GFR (Cockcroft-Gault) 86.7 BUN/Creatinine Ratio 9 (6-20) Glucose Level 70 mg/dL (70-99) Calcium Level 10.0 mg/dL (8.5-10.1) Total Bilirubin 0.7 mg/dL (0.2-1.0) Aspartate Amino Transferase (AST) 15 U/L (15-37) Alanine Aminotransferase (ALT) 26 U/L (14-59) Alkaline Phosphatase 91 U/L (46-116) Troponin I Quantitative < 0.017 ng/mL (0.000-0.055) Total Protein 9.0 g/dL (6.4-8.2) H Albumin 4.4 g/dL (3.4-5.0) Albumin/Globulin Ratio 1.0 (1.0-1.7) Lipase 218 U/L (73-393) Laboratory Tests 06/27/18 12:18 Laboratory Tests Test 06/27/18 12:10 06/27/18 12:18 Serum Test, Qualitative Negative Sodium Level 142 mmol/L Potassium Level 4.0 mmol/L Chloride Level 105 mmol/L Carbon Dioxide Level 23 mmol/L Anion Gap 14 Blood Urea Nitrogen 8 mg/dL Creatinine 0.9 mg/dL Estimated GFR (Cockcroft-Gault) 86.7 BUN/Creatinine Ratio 9 Glucose Level 70 mg/dL Calcium Level 10.0 mg/dL Total Bilirubin 0.7 mg/dL Aspartate Amino Transf (AST/SGOT) 15 U/L Alanine Aminotransferase (ALT/SGPT) 26 U/L Alkaline Phosphatase 91 U/L Troponin I Quantitative < 0.017 ng/mL Total Protein 9.0 g/dL Albumin 4.4 g/dL Albumin/Globulin Ratio 1.0 Lipase 218 U/L Current Medications Medications (Trade) Dose Ordered Sig/Benita Route PRN Reason Start Time Stop Time Status Last Admin Dose Admin Sodium Chloride 1,000 ml @ 1,000 mls/hr Q1H IV 06/27/18 10:42 06/27/18 11:41 DC Ondansetron HCl (Zofran) 4 mg 1X ONCE IV 06/27/18 10:45 06/27/18 10:48 DC Haloperidol Lactate (Haldol Inj) 5 mg 1X ONCE IVP 06/27/18 10:45 06/27/18 10:48 DC Diphenhydramine HCl (Benadryl) 25 mg 1X ONCE PO 06/27/18 10:45 06/27/18 10:48 DC 06/27/18 13:46 25 MG Acetaminophen (Tylenol) 1,000 mg 1X ONCE PO 06/27/18 12:45 06/27/18 13:44 DC 06/27/18 13:47 1,000 MG Ondansetron HCl (Zofran Odt) 4 mg STK-MED ONCE .ROUTE 06/27/18 12:20 06/27/18 12:59 DC EKG EKG Normal sinus rhythm at a rate of 89 beats for minute, normal axis, normal intervals. There is T-wave inversion laterally in the precordial leads without acute ischemic ST/T changes. [] Radiology/Procedures Radiology/Procedures [PROCEDURE: PORTABLE CHEST 1V Exam: AP portable chest History: Chest pain. Comparison: November 27, 2017. Findings: The heart and mediastinal structures are within normal limits for size. Lungs are without infiltrate. No pleural effusion or pneumothorax is identified. Impression: 1. No acute cardiopulmonary process. ] Course & Med Decision Making Course & Med Decision Making Pertinent Labs and Imaging studies reviewed. (See chart for details) [CBC has been reviewed and is normal. The patient's care was somewhat delayed due to computer downtime. She remained stable at this time. Her white blood cell count is 12,000 which is significantly lower than her prior values. The patient would like to leave the emergency department, became belligerent with staff, and subsequently eloped from the emergency Department before she doesn't formally discharged.] Dragon Disclaimer Dragon Disclaimer This electronic medical record was generated, in whole or in part, using a voice recognition dictation system. Departure Departure Impression: Primary Impression: Abdominal pain Additional Impressions: Marijuana abuse Cyclical vomiting Disposition: HOME, SELF-CARE Condition: STABLE Referrals: NO PCP (PCP) Problem Qualifiers TU VUONG MD Jun 27, 2018 10:54
--- NOTE | 2018-06-27 12:07 | RAD ---
Exam: AP portable chest History: Chest pain. Comparison: November 27, 2017. Findings: The heart and mediastinal structures are within normal limits for size. Lungs are without infiltrate. No pleural effusion or pneumothorax is identified. Impression: 1. No acute cardiopulmonary process. Electronically signed by: Tom Walton MD (06/27/2018 12:04 PM) [place] [id number]
[2018-06-27] MEDS ORDERED: ONDANSETRON ODT 4 MG TAB.RAPDIS. ONE (12:20)
[2018-06-27 12:30] VITALS: BP 149/91
[2018-06-27] MEDS ORDERED: ACETAMINOPHEN 500 MG TABLET PO ONE (12:45)
[2018-06-27 13:08] LABS: ALBUMIN 4.4 g/dL (3.4-5.0); CREATININE 0.9 mg/dL (0.6-1.0); GFR 86.7; TOTAL BILIRUBIN 0.7 mg/dL (0.2-1.0)
[2018-06-27 13:24] LABS: PREG TEST PT QUAL NEGATIVE (NEG)
[2018-06-27 13:56] LABS: BASO # 0.1 x10^3/uL (0.0-0.2); BASO % 1 % (0-3); EOS # 0.2 x10^3/uL (0.0-0.7); EOS % 1 % (0-3); HEMATOCRIT 44.2 % (36.0-47.0); HEMOGLOBIN 15.1 g/dL (12.0-15.5); LYMPH # 2.1 x10^3/uL (1.0-4.8); LYMPH % 18 % (24-48); MEAN CORPUSCULAR HEMOGLOBIN 34 pg (25-35); MEAN CORPUSCULAR HGB CONC 34 g/dL (31-37); MEAN CORPUSCULAR VOLUME 100 fL (79-100); MONO # 0.4 x10^3/uL (0.0-1.1); MONO % 3 % (0-9); NEUT # 9.3 x10^3uL (1.8-7.7); NEUT % 77 % (31-73); PLATELET COUNT 337 x10^3/uL (140-400); RED BLOOD COUNT 4.42 x10^6/uL (3.50-5.40); RED CELL DISTRIBUTION WIDTH 13.7 % (11.5-14.5); WHITE BLOOD COUNT 12.1 x10^3/uL (4.0-11.0)
[2018-06-27] MEDS ORDERED: ONDANSETRON ODT 4 MG TAB.RAPDIS. PO ONE (14:15)
== END 2018-06-27 14:00 | disposition home or self-care (01) ==
LOC: ER 10:20
DX: R10.13 Epigastric pain (principal); G43.A0 Cyclical vomiting, in migraine, not intractable; F12.10 Cannabis abuse, uncomplicated; K21.9 Gastro-esophageal reflux disease without esophagitis; I10 Essential (primary) hypertension; Z88.8 Allergy status to other drugs, medicaments and biological substances
CPT/HCPCS: 36415; 71045; 80053; 83690; 84484; 84703; 85025; 93005; 99285; Q0163

== ENCOUNTER 2019-01-11 10:18 | Inpatient (IN) | payer OTHER ==
[~2019-01-11] VITALS: Ht 180.3 cm; Wt 105.7 kg
[~2019-01-11 10:18] MED LIST changes: +HYDR-3164 PO; -HYDR-971 PO
[2019-01-11] MEDS ORDERED: fentaNYL PF VIAL 100 MCG/2 ML VIAL IV ONE (11:00)
[2019-01-11] MEDS ORDERED: diphenhydrAMINE 50 MG/ML VIAL IM ONE (11:00)
[2019-01-11] MEDS ORDERED: diphenhydrAMINE 50 MG/ML VIAL IVP ONE (11:00)
[2019-01-11] MEDS ORDERED: METOCLOPRAMIDE HCL 10 MG/2 ML VIAL. IV ONE (11:00)
[2019-01-11] MEDS ORDERED: METOCLOPRAMIDE HCL 10 MG/2 ML VIAL. IM ONE (11:00)
--- NOTE | 2019-01-11 11:12 | PHYS DOC ---
Past Medical History Past Medical History: GERD, Hypertension Additional Past Medical Histor: CYCLIC VOMITING SYNDROME, OBESITY, chronic pain Past Surgical History: No Surgical History Additional Past Surgical Histo: EGD. Alcohol Use: Occasionally Drug Use: Marijuana Adult General Chief Complaint Chief Complaint: ABDOMINAL PAIN HPI HPI Patient is a 33 year old female with history of cyclic vomiting presents to ED complaining of vomiting 2 days ago. Patient states on Tuesday she had [employer] in the evening and has not felt well since. Patient denies marijuana use. S tates that she's vomited 6 times this morning. Nonbloody, nonbilious. Same symptoms as previous episodes of cyclic vomiting. Denies abdominal pain, diarrhea, chest pain, shortness of breath, back pain, neck pain, headache, fever, dizziness, syncope or lower leg swelling. Review of Systems Review of Systems Constitutional: Denies fever or chills [] Eyes: Denies change in visual acuity, redness, or eye pain [] HENT: Denies nasal congestion or sore throat [] Respiratory: Denies cough or shortness of breath [] Cardiovascular: No additional information not addressed in HPI [] GI: Complains of nausea, vomiting. Denies bloody stools or diarrhea [] : Denies dysuria or hematuria [] Musculoskeletal: Denies back pain or joint pain [] Integument: Denies rash or skin lesions [] Neurologic: Denies headache, focal weakness or sensory changes [] All other systems were reviewed and found to be within normal limits, except as documented in this note. Current Medications Current Medications Current Medications Medications (Trade) Dose Ordered Sig/Benita Start Time Stop Time Status Last Admin Dose Admin Diphenhydramine HCl (Benadryl) 50 mg 1X ONCE 01/11/19 11:00 01/11/19 11:07 DC 01/11/19 11:23 50 MG Fentanyl Citrate (Fentanyl 2ml Vial) 50 mcg 1X ONCE 01/11/19 11:00 01/11/19 11:03 DC Lorazepam (Ativan) 2 mg 1X ONCE 01/11/19 12:15 01/11/19 12:19 DC 01/11/19 12:30 2 MG Metoclopramide HCl (Reglan Vial) 10 mg 1X ONCE 01/11/19 11:00 01/11/19 11:08 DC Ondansetron HCl (Zofran) 4 mg 1X ONCE 01/11/19 12:15 01/11/19 12:19 DC 01/11/19 12:30 4 MG Pantoprazole Sodium (Protonix) 40 mg 1X ONCE 01/11/19 12:15 01/11/19 12:19 DC 01/11/19 12:30 40 MG Allergies Allergies Allergies Coded Allergies Type Severity Reaction Last Updated Verified metoclopramide HCl Allergy Intermediate 01/21/14 Yes Physical Exam Physical Exam Constitutional: Well developed, well nourished, no acute distress, non-toxic appearance. [] HENT: Normocephalic, atraumatic. Eyes: PERRLA, EOMI, conjunctiva normal, no discharge. [] Neck: Normal range of motion, no tenderness, supple, no stridor. [] Cardiovascular:Heart rate regular rhythm, no murmur [] Lungs & Thorax: Bilateral breath sounds clear to auscultation [] Abdomen: Bowel sounds normal, soft, no tenderness, no masses, no pulsatile masses. [] Skin: Warm, dry, no erythema, no rash. [] Back: No tenderness, no CVA tenderness. [] Extremities: No tenderness, no cyanosis, no clubbing, ROM intact, no edema. [] Neurologic: Alert and oriented X 3, normal motor function, normal sensory functi on, no focal deficits noted. [] Psychologic: Affect normal, judgement normal, mood normal. [] Current Patient Data Vital Signs Vital Signs Date Time Temp Pulse Resp B/P (MAP) Pulse Ox O2 Delivery O2 Flow Rate FiO2 01/11/19 13:09 107 20 100 Room Air 01/11/19 11:36 205/107 (139) 01/11/19 10:25 98.6 98.6 Lab Values Laboratory Tests Test 01/11/19 11:45 01/11/19 12:02 01/11/19 12:07 01/11/19 12:14 White Blood Count 13.7 x10^3/uL (4.0-11.0) H Red Blood Count 4.19 x10^6/uL (3.50-5.40) Hemoglobin 13.8 g/dL (12.0-15.5) Hematocrit 42.3 % (36.0-47.0) Mean Corpuscular Volume 101 fL (79-100) H Mean Corpuscular Hemoglobin 33 pg (25-35) Mean Corpuscular Hemoglobin Concent 33 g/dL (31-37) Red Cell Distribution Width 14.2 % (11.5-14.5) Platelet Count 224 x10^3/uL (140-400) Neutrophils (%) (Auto) 67 % (31-73) Lymphocytes (%) (Auto) 27 % (24-48) Monocytes (%) (Auto) 4 % (0-9) Eosinophils (%) (Auto) 1 % (0-3) Basophils (%) (Auto) 1 % (0-3) Neutrophils # (Auto) 9.2 x10^3uL (1.8-7.7) H Lymphocytes # (Auto) 3.7 x10^3/uL (1.0-4.8) Monocytes # (Auto) 0.6 x10^3/uL (0.0-1.1) Eosinophils # (Auto) 0.2 x10^3/uL (0.0-0.7) Basophils # (Auto) 0.1 x10^3/uL (0.0-0.2) Urine Collection Type Unknown Urine Color Yellow Urine Clarity Clear Urine pH 6.5 Urine Specific King 1.020 Urine Protein Negative mg/dL (NEG-TRACE) Urine Glucose (UA) Negative mg/dL (NEG) Urine Ketones (Stick) Negative mg/dL (NEG) Urine Blood Negative (NEG) Urine Nitrite Negative (NEG) Urine Bilirubin Negative (NEG) Urine Urobilinogen Dipstick 0.2 mg/dL (0.2 mg/dL) Urine Leukocyte Esterase Moderate (NEG) Urine RBC 0 /HPF (0-2) Urine WBC 5-10 /HPF (0-4) Urine Squamous Epithelial Cells Mod /LPF Urine Bacteria Mod /HPF (0-FEW) Urine Mucus Marked /LPF Urine Opiates Screen Neg (NEG) Urine Methadone Screen Neg (NEG) Urine Barbiturates Neg (NEG) Urine Phencyclidine Screen Neg (NEG) Urine Amphetamine/Methamphetamine Neg (NEG) Urine Benzodiazepines Screen Neg (NEG) Urine Cocaine Screen Neg (NEG) Urine Cannabinoids Screen Pos (NEG) Urine Ethyl Alcohol Neg (NEG) POC Urine HCG, Qualitative Hcg negative (Negative) Ethyl Alcohol Level < 10 mg/dL (0-10) Laboratory Tests 01/11/19 11:45 EKG EKG [] Radiology/Procedures Radiology/Procedures [] Course & Med Decision Making Course & Med Decision Making Pertinent Labs and Imaging studies reviewed. (See chart for details) Patient continuing to be symptomatic. Patient tolerating PO. []Discussed case with hospitalist, Dr. Mari. Agrees to admission and further management of patient. Patient stable for admission. Dragon Disclaimer Dragon Disclaimer This electronic medical record was generated, in whole or in part, using a voice recognition dictation system. Departure Departure Impression: Primary Impression: Cyclical vomiting Additional Impression: Marijuana abuse Disposition: 09 ADMITTED INPATIENT Admitting Physician: Maria De Jesus Mari Condition: STABLE Referrals: NO PCP (PCP) Problem Qualifiers KLEVER SUAZO January 11, 2019 11:12
[2019-01-11] MEDS ORDERED: ONDANSETRON PF 4 MG/2 ML VIAL. IM ONE ×2 (11:15→12:15)
[2019-01-11 12:02] LABS: BASO # 0.1 x10^3/uL (0.0-0.2); BASO % 1 % (0-3); EOS # 0.2 x10^3/uL (0.0-0.7); EOS % 1 % (0-3); HEMATOCRIT 42.3 % (36.0-47.0); HEMOGLOBIN 13.8 g/dL (12.0-15.5); LYMPH # 3.7 x10^3/uL (1.0-4.8); LYMPH % 27 % (24-48); MEAN CORPUSCULAR HEMOGLOBIN 33 pg (25-35); MEAN CORPUSCULAR HGB CONC 33 g/dL (31-37); MEAN CORPUSCULAR VOLUME 101 fL (79-100); MONO # 0.6 x10^3/uL (0.0-1.1); MONO % 4 % (0-9); NEUT # 9.2 x10^3uL (1.8-7.7); NEUT % 67 % (31-73); PLATELET COUNT 224 x10^3/uL (140-400); RED BLOOD COUNT 4.19 x10^6/uL (3.50-5.40); RED CELL DISTRIBUTION WIDTH 14.2 % (11.5-14.5); WHITE BLOOD COUNT 13.7 x10^3/uL (4.0-11.0)
[2019-01-11] MEDS ORDERED: PANTOPRAZOLE 40 MG TABLET.DR. PO ONE (12:15)
[2019-01-11 12:30] LABS: BILIRUBIN,URINE NEGATIVE (NEG); CLARITY,URINE CLEAR; COLOR,URINE YELLOW; NITRITE,URINE NEGATIVE (NEG); PH,URINE 6.5; PROTEIN,URINE NEGATIVE (NEG-TRACE); UROBILINOGEN,URINE 0.2 mg/dL (0.2 mg/dL)
[2019-01-11 12:34] LABS: BARBITURATES NEG (NEG); BENZODIAZEPINES NEG (NEG); CANNABINOIDS POS (NEG); COCAINE NEG (NEG); METHADONE NEG (NEG); OPIATES NEG (NEG); PHENCYCLIDINE NEG (NEG)
[2019-01-11 12:35] LABS: AMPHETAMINE/METHAMPHETAMINE NEG (NEG)
[2019-01-11 12:43] LABS: SQUAMOUS EPITHELIAL CELL,UR MOD /LPF
[2019-01-11 12:44] LABS: BACTERIA,URINE MOD /HPF (0-FEW); RBC,URINE 0 /HPF (0-2)
[2019-01-11] MEDS ORDERED: ONDANSETRON PF 4 MG/2 ML VIAL. IV PRN (13:45)
[2019-01-11] MEDS ORDERED: ACETAMINOPHEN 325 MG TABLET. PO PRN (13:45)
[2019-01-11] MEDS ORDERED: cefTRIAXone IM 1 GM VIAL IM ONE (13:45)
[2019-01-11 14:55] LABS: ALBUMIN 4.3 g/dL (3.4-5.0); ALBUMIN/GLOBULIN RATIO 1.1 (1.0-1.7); CALCIUM 9.6 mg/dL (8.5-10.1); CREATININE 0.7 mg/dL (0.6-1.0); GFR 115.2; POTASSIUM 3.6 mmol/L (3.5-5.1); TOTAL BILIRUBIN 0.5 mg/dL (0.2-1.0); TOTAL PROTEIN 8.3 g/dL (6.4-8.2)
[2019-01-11 15:00] VITALS: BP 196/101
[2019-01-11] MEDS ORDERED: HYDR12.58 PO (15:55)
[2019-01-11] MEDS ORDERED: PROM25TA10 PO (15:55)
[2019-01-11] MEDS ORDERED: LISI40TA2 PO (15:55)
[2019-01-11] MEDS ORDERED: GABA300C9 PO (15:55)
[2019-01-11] MEDS ORDERED: DICY20TA3 PO (15:55)
[2019-01-11] MEDS ORDERED: CLON1PAT TD (15:55)
--- NOTE | 2019-01-11 16:22 | NUR ---
pt admitted to room 521. attempting to ask admission questions and pt is not cooperative. pt refuses to sit still in bed, thrashes about making VS difficult. does not cooperate to do assessment. when staff not in room, it is noted that pt is able to lay perfectly still in bed but immediately resumes thrashing when staff enters.
[2019-01-11] MEDS: ONDANSETRON PF 4 MG/2 ML VIAL. IM PRN (16:49)
--- NOTE | 2019-01-11 17:29 | NUR ---
this auto service writer was informed by METROLOGY TECHNICIAN that pt had gotten out of bed and crawled into the bathroom, was sitting on the shower floor, with the water running. pt have been given a shower chair. this auto service writer entered bathroom and told pt to get off the floor. pt refused. was told that security would be called if she did not get off the floor and onto the shower chair. pt stood up and still refused to sit in the chair. was then told by this auto service writer that if she didn't sit in the chair for safety, the water would be shut off and security would be called. pt finally sat in the chair.
[2019-01-11 19:00] VITALS: BP 197/134
--- NOTE | 2019-01-11 19:43 | PDOC1 ---
History and Physical Date of Admission: Date of Admission DATE: 01/11/19 TIME: 19:38 Chief Complaint: Problems: (1) Hypertensive encephalopathy (2) Ankle strain (3) Phlebitis (4) Vomiting alone (5) Influenza B (6) Cough (7) Myalgia (8) Influenza A (9) Vomiting (10) Headache (11) Malignant hypertension (12) Nausea and vomiting (13) Vomiting and diarrhea (14) UTI (urinary tract infection) (15) Abdominal pain (16) Cyclical vomiting (17) Marijuana abuse Chief Complain: Nausea vomiting abdominal pain History of Present Illness: HPI: This is a young female with known cyclic vomiting syndrome I suspect she has some psychiatric issues as well She presented to the ER with severe abdominal pain she is writhing in the bed She is making motions in the bed as if she is in a boat or even swimming like a frog Rates her symptoms at 10 out 10 She is begging for symptomatically relief but doesn't really know what would work We were unable to start an IV because she is a difficult stick I discussed the case with the ER physician and her nurse I'm then try some I am Ativan Haldol and fentanyl Past Medical/Surgical History: PMH/PSH: Past Medical History: GERD, Hypertension Additional Past Medical Histor: CYCLIC VOMITING SYNDROME, OBESITY, chronic pain Past Surgical History: No Surgical History Additional Past Surgical Histo: EGD. Alcohol Use: Occasionally Drug Use: Marijuana Allergies: Allergies: Coded Allergies: metoclopramide HCl (Verified Allergy, Intermediate, 01/21/14) Family History: Family History: Hypertension Social History: Social Hisoty: She denies taking smoking or drugs Current Medications: Current Medications Current Medications Metoclopramide HCl (Reglan Vial) 10 mg 1X ONCE IV ; Start 01/11/19 at 11:00; Stop 01/11/19 at 11:03; Status DC Diphenhydramine HCl (Benadryl) 50 mg 1X ONCE IVP ; Start 01/11/19 at 11:00; Stop 01/11/19 at 11:03; Status DC Fentanyl Citrate (Fentanyl 2ml Vial) 50 mcg 1X ONCE IV ; Start 01/11/19 at 11:00; Stop 01/11/19 at 11:03; Status DC Diphenhydramine HCl (Benadryl) 50 mg 1X ONCE IM Last administered on 01/11/19at 11:23; Start 01/11/19 at 11:00; Stop 01/11/19 at 11:07; Status DC Metoclopramide HCl (Reglan Vial) 10 mg 1X ONCE IM ; Start 01/11/19 at 11:00; Stop 01/11/19 at 11:08; Status DC Ondansetron HCl (Zofran) 4 mg 1X ONCE IM Last administered on 01/11/19at 11:23; Start 01/11/19 at 11:15; Stop 01/11/19 at 11:16; Status DC Lorazepam (Ativan) 2 mg 1X ONCE IM Last administered on 01/11/19at 12:30; Start 01/11/19 at 12:15; Stop 01/11/19 at 12:19; Status DC Pantoprazole Sodium (Protonix) 40 mg 1X ONCE PO Last administered on 01/11/19at 12:30; Start 01/11/19 at 12:15; Stop 01/11/19 at 12:19; Status DC Ondansetron HCl (Zofran) 4 mg 1X ONCE IM Last administered on 01/11/19at 12:30; Start 01/11/19 at 12:15; Stop 01/11/19 at 12:19; Status DC Ceftriaxone Sodium (Rocephin Im) 1 gm 1X ONCE IM Last administered on 01/11/19at 14:04; Start 01/11/19 at 13:45; Stop 01/11/19 at 13:46; Status DC Ondansetron HCl (Zofran) 4 mg PRN Q8HRS PRN IV NAUSEA/VOMITING; Start 01/11/19 at 13:45; Stop 01/11/19 at 13:56; Status DC Acetaminophen (Tylenol) 650 mg PRN Q4HRS PRN PO FEVER; Start 01/11/19 at 13:45; Stop 01/12/19 at 13:44 Ondansetron HCl (Zofran) 4 mg PRN Q8HRS PRN IM NAUSEA/VOMITING Last administered on 01/11/19at 16:49; Start 01/11/19 at 14:00 Fentanyl Citrate (Fentanyl 2ml Vial) 75 mcg PRN Q4HRS PRN IM PAIN; Start 01/11/19 at 18:30 Lorazepam (Ativan) 2 mg PRN Q4HRS PRN IM ANXIETY / AGITATION Last administered on 01/11/19at 18:51; Start 01/11/19 at 18:30 Haloperidol Lactate (Haldol Inj) 5 mg PRN Q8HRS PRN IM ANXIETY / AGITATION; Start 01/11/19 at 18:30 Active Scripts Active Reported Promethazine Hcl 25 Mg Tablet 25 Mg PO PRN Q4HRS PRN Hydrochlorothiazide Tablet (Hydrochlorothiazide) 12.5 Mg Tablet 12.5 Mg PO DAILY Lisinopril 40 Mg Tablet 40 Mg PO DAILY Gabapentin 300 Mg Capsule 300 Mg PO DAILY Clonidine Tts-1 (Clonidine) 1 Each Patch.tdwk 0.1 Mg TD WEEKLY Dicyclomine Hcl 20 Mg Tablet 20 Mg PO QID Omeprazole 40 Mg Capsule.dr 40 Mg PO DAILY ROS: Review of Systems Review of System REVIEW OF SYSTEMS: GENERAL: Denies weakness SKIN: No bruising, hair changes or rashes. EYES: No blurred, double or loss of vision. NOSE AND THROAT: No history of nosebleeds, hoarseness or sore throat. HEART: No history of palpitations, chest pain or shortness of breath on exertion. LUNGS: Denies cough, hemoptysis, wheezing or shortness of breath. GASTROINTESTINAL: She complains of severe abdominal pain GENITOURINARY: No history of frequency, urgency, hesitancy or nocturia. NEUROLOGIC: Denies history of numbness, tingling, tremor or weakness. PSYCHIATRIC: No history of panic, anxiety or depression. ENDOCRINE: No history of heat or cold intolerance, polyuria or polydipsia. EXTREMITIES: Denies muscle weakness, joint pain, pain on walking or stiffness. Physical Exam: Vital Signs: Vital Signs Date Time Temp Pulse Resp B/P (MAP) Pulse Ox O2 Delivery O2 Flow Rate FiO2 01/11/19 15:00 98.7 69 196/101 (132) 92 Room Air 98.7 01/11/19 14:20 20 Physcial Exam: GEN.: She is writhing in the bed as if she were rolling about and/or swimming like a frog very unusual affect appears to have a psychosomatic component HEENT: Head is normocephalic, atraumatic NECK: Supple, no JVD LUNGS: Clear to auscultation without rhonchi or wheezing HEART: RRR, S1, S2 present. Peripheral pulses intact ABDOMEN: Very tender to palpation EXTREMITIES: Without any cyanosis, clubbing, or edema. Pedal pulses intact NEUROLOGIC: Normal speech, normal tone. A&O x 3 PSYCHIATRIC: Normal affect, normal mood. Stable SKIN: No ulcerations or rashes VASCULAR: Good capillary refill Labs: Labs: Laboratory Tests Test 01/11/19 11:45 01/11/19 12:02 01/11/19 12:07 01/11/19 12:14 White Blood Count 13.7 x10^3/uL (4.0-11.0) Red Blood Count 4.19 x10^6/uL (3.50-5.40) Hemoglobin 13.8 g/dL (12.0-15.5) Hematocrit 42.3 % (36.0-47.0) Mean Corpuscular Volume 101 fL (79-100) Mean Corpuscular Hemoglobin 33 pg (25-35) Mean Corpuscular Hemoglobin Concent 33 g/dL (31-37) Red Cell Distribution Width 14.2 % (11.5-14.5) Platelet Count 224 x10^3/uL (140-400) Neutrophils (%) (Auto) 67 % (31-73) Lymphocytes (%) (Auto) 27 % (24-48) Monocytes (%) (Auto) 4 % (0-9) Eosinophils (%) (Auto) 1 % (0-3) Basophils (%) (Auto) 1 % (0-3) Neutrophils # (Auto) 9.2 x10^3uL (1.8-7.7) Lymphocytes # (Auto) 3.7 x10^3/uL (1.0-4.8) Monocytes # (Auto) 0.6 x10^3/uL (0.0-1.1) Eosinophils # (Auto) 0.2 x10^3/uL (0.0-0.7) Basophils # (Auto) 0.1 x10^3/uL (0.0-0.2) Urine Collection Type Unknown Urine Color Yellow Urine Clarity Clear Urine pH 6.5 Urine Specific Black 1.020 Urine Protein Negative mg/dL (NEG-TRACE) Urine Glucose (UA) Negative mg/dL (NEG) Urine Ketones (Stick) Negative mg/dL (NEG) Urine Blood Negative (NEG) Urine Nitrite Negative (NEG) Urine Bilirubin Negative (NEG) Urine Urobilinogen Dipstick 0.2 mg/dL (0.2 mg/dL) Urine Leukocyte Esterase Moderate (NEG) Urine RBC 0 /HPF (0-2) Urine WBC 5-10 /HPF (0-4) Urine Squamous Epithelial Cells Mod /LPF Urine Bacteria Mod /HPF (0-FEW) Urine Mucus Marked /LPF Urine Opiates Screen Neg (NEG) Urine Methadone Screen Neg (NEG) Urine Barbiturates Neg (NEG) Urine Phencyclidine Screen Neg (NEG) Urine Amphetamine/Methamphetamine Neg (NEG) Urine Benzodiazepines Screen Neg (NEG) Urine Cocaine Screen Neg (NEG) Urine Cannabinoids Screen Pos (NEG) Urine Ethyl Alcohol Neg (NEG) Bedside Urine HCG, Qualitative Hcg negative (Negative) Ethyl Alcohol Level < 10 mg/dL (0-10) Test 01/11/19 14:25 Sodium Level 141 mmol/L (136-145) Potassium Level 3.6 mmol/L (3.5-5.1) Chloride Level 103 mmol/L (98-107) Carbon Dioxide Level 24 mmol/L (21-32) Anion Gap 14 (6-14) Blood Urea Nitrogen 6 mg/dL (7-20) Creatinine 0.7 mg/dL (0.6-1.0) Estimated GFR (Cockcroft-Gault) 115.2 BUN/Creatinine Ratio 9 (6-20) Glucose Level 102 mg/dL (70-99) Calcium Level 9.6 mg/dL (8.5-10.1) Total Bilirubin 0.5 mg/dL (0.2-1.0) Aspartate Amino Transf (AST/SGOT) 18 U/L (15-37) Alanine Aminotransferase (ALT/SGPT) 23 U/L (14-59) Alkaline Phosphatase 76 U/L (46-116) Total Protein 8.3 g/dL (6.4-8.2) Albumin 4.3 g/dL (3.4-5.0) Albumin/Globulin Ratio 1.1 (1.0-1.7) Lipase 153 U/L (73-393) Laboratory Tests Test 01/11/19 11:45 01/11/19 12:02 01/11/19 12:07 01/11/19 12:14 White Blood Count 13.7 x10^3/uL (4.0-11.0) Red Blood Count 4.19 x10^6/uL (3.50-5.40) Hemoglobin 13.8 g/dL (12.0-15.5) Hematocrit 42.3 % (36.0-47.0) Mean Corpuscular Volume 101 fL (79-100) Mean Corpuscular Hemoglobin 33 pg (25-35) Mean Corpuscular Hemoglobin Concent 33 g/dL (31-37) Red Cell Distribution Width 14.2 % (11.5-14.5) Platelet Count 224 x10^3/uL (140-400) Neutrophils (%) (Auto) 67 % (31-73) Lymphocytes (%) (Auto) 27 % (24-48) Monocytes (%) (Auto) 4 % (0-9) Eosinophils (%) (Auto) 1 % (0-3) Basophils (%) (Auto) 1 % (0-3) Neutrophils # (Auto) 9.2 x10^3uL (1.8-7.7) Lymphocytes # (Auto) 3.7 x10^3/uL (1.0-4.8) Monocytes # (Auto) 0.6 x10^3/uL (0.0-1.1) Eosinophils # (Auto) 0.2 x10^3/uL (0.0-0.7) Basophils # (Auto) 0.1 x10^3/uL (0.0-0.2) Urine Collection Type Unknown Urine Color Yellow Urine Clarity Clear Urine pH 6.5 Urine Specific Black 1.020 Urine Protein Negative mg/dL (NEG-TRACE) Urine Glucose (UA) Negative mg/dL (NEG) Urine Ketones (Stick) Negative mg/dL (NEG) Urine Blood Negative (NEG) Urine Nitrite Negative (NEG) Urine Bilirubin Negative (NEG) Urine Urobilinogen Dipstick 0.2 mg/dL (0.2 mg/dL) Urine Leukocyte Esterase Moderate (NEG) Urine RBC 0 /HPF (0-2) Urine WBC 5-10 /HPF (0-4) Urine Squamous Epithelial Cells Mod /LPF Urine Bacteria Mod /HPF (0-FEW) Urine Mucus Marked /LPF Urine Opiates Screen Neg (NEG) Urine Methadone Screen Neg (NEG) Urine Barbiturates Neg (NEG) Urine Phencyclidine Screen Neg (NEG) Urine Amphetamine/Methamphetamine Neg (NEG) Urine Benzodiazepines Screen Neg (NEG) Urine Cocaine Screen Neg (NEG) Urine Cannabinoids Screen Pos (NEG) Urine Ethyl Alcohol Neg (NEG) Bedside Urine HCG, Qualitative Hcg negative (Negative) Ethyl Alcohol Level < 10 mg/dL (0-10) Test 01/11/19 14:25 Sodium Level 141 mmol/L (136-145) Potassium Level 3.6 mmol/L (3.5-5.1) Chloride Level 103 mmol/L (98-107) Carbon Dioxide Level 24 mmol/L (21-32) Anion Gap 14 (6-14) Blood Urea Nitrogen 6 mg/dL (7-20) Creatinine 0.7 mg/dL (0.6-1.0) Estimated GFR (Cockcroft-Gault) 115.2 BUN/Creatinine Ratio 9 (6-20) Glucose Level 102 mg/dL (70-99) Calcium Level 9.6 mg/dL (8.5-10.1) Total Bilirubin 0.5 mg/dL (0.2-1.0) Aspartate Amino Transf (AST/SGOT) 18 U/L (15-37) Alanine Aminotransferase (ALT/SGPT) 23 U/L (14-59) Alkaline Phosphatase 76 U/L (46-116) Total Protein 8.3 g/dL (6.4-8.2) Albumin 4.3 g/dL (3.4-5.0) Albumin/Globulin Ratio 1.1 (1.0-1.7) Lipase 153 U/L (73-393) Images: Images We would like to get imaging of her abdomen but she will lie still Assessment/Plan Assessment/Plan Severe abdominal pain nausea vomiting with some mild leukocytosis Plan Consult GI IM Ativan IMHaldol IM fentanyl Once we get her calmed down and hopefully we can get an IV started and do some imaging She did get 1 dose of I M Rocephin We'll try to get IV fluids if we get IV access We'll try to resume her home meds DVT prophylaxis Full code KOFFI LANDEROS III DO January 11, 2019 19:43
[2019-01-11] MEDS: fentaNYL PF VIAL 100 MCG/2 ML VIAL IM PRN (19:46)
[2019-01-11] MEDS: HALOPERIDOL LACTATE 5 MG/ML VIAL. IM PRN (19:46)
[2019-01-11 23:00] VITALS: BP 151/101
[2019-01-12] VITALS (17 sets, daily range): BP systolic 113–208; BP diastolic 67–131
[2019-01-12] MEDS: fentaNYL PF VIAL 100 MCG/2 ML VIAL IM PRN ×2 (07:34→14:20)
[2019-01-12] MEDS ORDERED: PANTOPRAZOLE 40 MG TABLET.DR. PO SCH (08:00)
[2019-01-12] MEDS: ONDANSETRON PF 4 MG/2 ML VIAL. IM PRN (08:42)
[2019-01-12] MEDS: GABAPENTIN 300 MG CAPSULE. PO SCH (09:00)
[2019-01-12] MEDS: DICYCLOMINE HCL 10 MG CAPSULE PO SCH ×4 (09:00→20:40)
--- NOTE | 2019-01-12 09:30 | PDOC2 ---
GI CONSULT Reason For Consult: Abd pain HPI: HPI: 33 y/o female who was have seen in the past for chronic abd pain and n/v w/ reported h/o CVS. In the past has reported previous evaluations by Dr. Dumont, at [facility] [place], at [facility], and at . H/o GERD w/ previous EGDs. Mildly prolonged gastric emptying on GES in 2018 - tried Reglan at some point in the past but made her itch. No previous colonoscopy. S/p cholecystectomy for stones. No liver, pancreas, or PUD history. +cannabinoids on tox screens since 2013. Had abnormal stress test last year, cardiology consult pending re: this. Attempted to see this morning x 2 - once was in the shower, once out of room for CT. D/w RN - dramatic display of crying, thrashing, and complaints of pain yesterday - usually when doctor was present - also spent a lot of time in the shower (apparently crawled in naked and sat down on shower floor). On disability. Significant hypertension - initial BP was 220/115. This afternoon, she was asleep when I walked in. A bit difficult to rouse (has received Ativan, Haldol, and Fentanyl), then sat up in bed and started rocking back and forth, then fell asleep while rocking. History limited due to drowsiness, but told me ill with mid abdominal ache x 1 week. Associated w/ bilious emesis and 2 episodes of diarrhea on Tuesday. Symptoms possibly precipitated by eating a sandwich and chicken nuggets at [facility] that day. Pain might be worse after eating but was able to take a few clears today. She can't remember the name of medications - says she "probably" takes omeprazole "if I need to" and also thinks she takes Zofran. Denies use of any type of pain medication. Denies bleeding. PMH: PMH: HTN, asthma, GERD, mildly delayed gastric emptying tonsillectomy, cholecystectomy FH: Family History: No pertinent hx Social History: Drugs: Marijuana ROS: Difficult to obtain. Vitals: Vitals: Vital Signs Date Time Temp Pulse Resp B/P (MAP) Pulse Ox O2 Delivery O2 Flow Rate FiO2 01/12/19 08:00 Room Air 01/12/19 07:00 98.6 105 18 158/105 (122) 98 98.6 Labs: Labs: Laboratory Tests Test 01/11/19 11:45 01/11/19 12:02 01/11/19 12:07 01/11/19 12:14 White Blood Count 13.7 x10^3/uL (4.0-11.0) Red Blood Count 4.19 x10^6/uL (3.50-5.40) Hemoglobin 13.8 g/dL (12.0-15.5) Hematocrit 42.3 % (36.0-47.0) Mean Corpuscular Volume 101 fL (79-100) Mean Corpuscular Hemoglobin 33 pg (25-35) Mean Corpuscular Hemoglobin Concent 33 g/dL (31-37) Red Cell Distribution Width 14.2 % (11.5-14.5) Platelet Count 224 x10^3/uL (140-400) Neutrophils (%) (Auto) 67 % (31-73) Lymphocytes (%) (Auto) 27 % (24-48) Monocytes (%) (Auto) 4 % (0-9) Eosinophils (%) (Auto) 1 % (0-3) Basophils (%) (Auto) 1 % (0-3) Neutrophils # (Auto) 9.2 x10^3uL (1.8-7.7) Lymphocytes # (Auto) 3.7 x10^3/uL (1.0-4.8) Monocytes # (Auto) 0.6 x10^3/uL (0.0-1.1) Eosinophils # (Auto) 0.2 x10^3/uL (0.0-0.7) Basophils # (Auto) 0.1 x10^3/uL (0.0-0.2) Urine Collection Type Unknown Urine Color Yellow Urine Clarity Clear Urine pH 6.5 Urine Specific Hilbert 1.020 Urine Protein Negative mg/dL (NEG-TRACE) Urine Glucose (UA) Negative mg/dL (NEG) Urine Ketones (Stick) Negative mg/dL (NEG) Urine Blood Negative (NEG) Urine Nitrite Negative (NEG) Urine Bilirubin Negative (NEG) Urine Urobilinogen Dipstick 0.2 mg/dL (0.2 mg/dL) Urine Leukocyte Esterase Moderate (NEG) Urine RBC 0 /HPF (0-2) Urine WBC 5-10 /HPF (0-4) Urine Squamous Epithelial Cells Mod /LPF Urine Bacteria Mod /HPF (0-FEW) Urine Mucus Marked /LPF Urine Opiates Screen Neg (NEG) Urine Methadone Screen Neg (NEG) Urine Barbiturates Neg (NEG) Urine Phencyclidine Screen Neg (NEG) Urine Amphetamine/Methamphetamine Neg (NEG) Urine Benzodiazepines Screen Neg (NEG) Urine Cocaine Screen Neg (NEG) Urine Cannabinoids Screen Pos (NEG) Urine Ethyl Alcohol Neg (NEG) Bedside Urine HCG, Qualitative Hcg negative (Negative) Ethyl Alcohol Level < 10 mg/dL (0-10) Test 01/11/19 14:25 Sodium Level 141 mmol/L (136-145) Potassium Level 3.6 mmol/L (3.5-5.1) Chloride Level 103 mmol/L (98-107) Carbon Dioxide Level 24 mmol/L (21-32) Anion Gap 14 (6-14) Blood Urea Nitrogen 6 mg/dL (7-20) Creatinine 0.7 mg/dL (0.6-1.0) Estimated GFR (Cockcroft-Gault) 115.2 BUN/Creatinine Ratio 9 (6-20) Glucose Level 102 mg/dL (70-99) Calcium Level 9.6 mg/dL (8.5-10.1) Total Bilirubin 0.5 mg/dL (0.2-1.0) Aspartate Amino Transf (AST/SGOT) 18 U/L (15-37) Alanine Aminotransferase (ALT/SGPT) 23 U/L (14-59) Alkaline Phosphatase 76 U/L (46-116) Total Protein 8.3 g/dL (6.4-8.2) Albumin 4.3 g/dL (3.4-5.0) Albumin/Globulin Ratio 1.1 (1.0-1.7) Lipase 153 U/L (73-393) Allergies: Coded Allergies: metoclopramide HCl (Verified Allergy, Intermediate, 01/21/14) Medications: Current Medications Medications (Trade) Dose Ordered Sig/Benita Route PRN Reason Start Time Stop Time Status Last Admin Dose Admin Diphenhydramine HCl (Benadryl) 50 mg 1X ONCE IM 01/11/19 11:00 01/11/19 11:07 DC 01/11/19 11:23 Ondansetron HCl (Zofran) 4 mg 1X ONCE IM 01/11/19 11:15 01/11/19 11:16 DC 01/11/19 11:23 Lorazepam (Ativan) 2 mg 1X ONCE IM 01/11/19 12:15 01/11/19 12:19 DC 01/11/19 12:30 Pantoprazole Sodium (Protonix) 40 mg 1X ONCE PO 01/11/19 12:15 01/11/19 12:19 DC 01/11/19 12:30 Ondansetron HCl (Zofran) 4 mg 1X ONCE IM 01/11/19 12:15 01/11/19 12:19 DC 01/11/19 12:30 Ceftriaxone Sodium (Rocephin Im) 1 gm 1X ONCE IM 01/11/19 13:45 01/11/19 13:46 DC 01/11/19 14:04 Ondansetron HCl (Zofran) 4 mg PRN Q8HRS PRN IM NAUSEA/VOMITING 01/11/19 14:00 01/12/19 08:42 Fentanyl Citrate (Fentanyl 2ml Vial) 75 mcg PRN Q4HRS PRN IM PAIN 01/11/19 18:30 01/12/19 07:34 Lorazepam (Ativan) 2 mg PRN Q4HRS PRN IM ANXIETY / AGITATION 01/11/19 18:30 01/12/19 08:46 Haloperidol Lactate (Haldol Inj) 5 mg PRN Q8HRS PRN IM ANXIETY / AGITATION 01/11/19 18:30 01/11/19 19:46 Imaging: Imaging: CT A/P w/o contrast 01/12/19 Impression: No suspicious process. PE: GEN: NAD HEENT: Atraumatic, PERRL LUNGS: CTAB HEART: RRR ABD: NABS, S/ND/NT EXTREMITY: No edema SKIN: No rashes, no jaundice NEURO/PSYCH: A & O 3 - very drowsy, falls asleep during interview/exam A/P: A/P: Chronic abd pain, n/v -h/o GERD, mildly delayed gastric emptying, and marijuana use ?psych history H/o abnormal stress test, uncontrolled HTN Hypokalemia - per primary -- Chronic issues, probably multi-factorial - ?cannabis hyperemesis (takes frequent showers), ?food poisoning, ?HTN - d/w cardiology, plans for cath. Supportive care per GI - will change acid-psychology intern to IV for (PPI in short supply, will use Pepcid). KIMO BUNCH January 12, 2019 09:30
[2019-01-12] MEDS: LISINOPRIL 20 MG TABLET PO SCH (09:54)
[2019-01-12] MEDS: hydroCHLOROthiazide 12.5 MG CAPSULE PO SCH (09:54)
--- NOTE | 2019-01-12 10:00 | PDOC ---
PROGRESS NOTES History of Present Illness History of Present Illness Assessment/Plan Assessment/Plan Severe abdominal pain nausea vomiting with some mild leukocytosis Regadenoson cardioisotope stress test showed small amount of anterior wall ischemia with transient ischemic dilatation. Consider cardiac catheterization. Mild left ventricle systolic dysfunction with ejection fraction calculated at 46%. IN 2018 Plan Consult GI IM Ativan IMHaldol IM fentanyl I M Rocephin IV fluids resume her home meds DVT prophylaxis Full code IN 2018 Regadenoson cardioisotope stress test showed small amount of anterior wall ischemia with transient ischemic dilatation. Consider cardiac catheteriza tion. Mild left ventricle systolic dysfunction with ejection fraction calculated at 46%. 42 MIN PT EXAM, CHART REVIEW, > 50% OF TIME SPENT WITH EXAM.,chart review, pt care coordination Vitals Vitals Vital Signs Date Time Temp Pulse Resp B/P (MAP) Pulse Ox O2 Delivery O2 Flow Rate FiO2 01/12/19 09:54 105 158/105 01/12/19 08:00 Room Air 01/12/19 07:00 98.6 18 98 98.6 Physical Exam Physical Exam SKIN: No bruising, hair changes or rashes. EYES: No blurred, double or loss of vision. NOSE AND THROAT: No history of nosebleeds, hoarseness or sore throat. HEART: No history of palpitations, chest pain or shortness of breath on exertion. LUNGS: Denies cough, hemoptysis, wheezing or shortness of breath. GASTROINTESTINAL: She complains of severe abdominal pain GENITOURINARY: No history of frequency, urgency, hesitancy or nocturia. NEUROLOGIC: Denies history of numbness, tingling, tremor or weakness. PSYCHIATRIC: No history of panic, anxiety or depression. ENDOCRINE: No history of heat or cold intolerance, polyuria or polydipsia. EXTREMITIES: Denies muscle weakness, joint pain, pain on walking or stiffness. General: Alert, Oriented X3, Cooperative, mild distress Heart: Regular rate Lungs: Clear, Other Extremities: No cyanosis Labs LABS INTERPRETATION Stress EKG Conclusion: Baseline EKG showed sinus rhythm. No ischemic changes at peak stress. No arrhythmias. Imaging Protocol IMAGE PROTOCOL: Rest Tc-99m/stress Tc-99m 2 days Rest: Stress: Viability: Radiopharm. Tc99m Sestamibi Tc99m Sestamibi Dose 31.3mCi 33.1mCi Duration 10min. 10min. Img Date 12/01/2017 12/02/2017 Inj-Img Time 60min. 60min. Rest Admin Site: IV - PICC Line Pressroom Worker: VENECIA Schrader Stress Admin Site: IV right jugular vein Pressroom Worker: VENECIA Schrader STRESS DATA End Diast. Vol. 162.0ml Av. Heart Rate 78.0bpm End Syst. Vol. 88.0ml CO Index BSA 0.0L/min Myocardial Mass 180.0g Eject. Fraction 46.0% Stress Rates Pk. Fill Rate 2.31EDV/sec LVtime Pk. Fill 218.06msec Pk. Empty Rate 2.80ESV/sec LVtime Pk. Eject 135.24msec 1/3 Pk. Fill 0.76EDV/sec Stress Scores Regional WT 2.00 Summed WT 32.00 Regional WM 0.00 Summed WM 7.00 LV Perfusion Scintigraphic images showed small reversible defect involving the anterior wall. Also seen was transient ischemic dilatation in stress images. Wall Motion Mild left ventricle systolic dysfunction with ejection fraction calculated at 46%. LV Perf. Quant 17 Seg. SSS 4.00 17 Seg. SRS 0.00 17 Seg. SDS 4.00 Stress Defect Extent (% LAD) 0.00 Rest Defect Extent (% LAD) 0.00 Rev. Defect Extent (% LAD) 0.00 Stress Defect Extent (% LCX) 21.30 Rest Defect Extent (% LCX) 0.00 Rev. Defect Extent (% LCX) 20.00 Stress Defect Extent (% RCA) 0.00 Rest Defect Extent (% RCA) 0.00 Rev. Defect Extent (% RCA) 0.00 Stress Defect Extent (% ALONA) 3.70 Rest Defect Extent (% ALONA) 0.00 Rev. Defect Extent (% ALONA) 3.50 Conclusion 1. Regadenoson cardioisotope stress test showed small amount of anterior wall ischemia with transient ischemic dilatation. Consider cardiac catheterization. 2. Mild left ventricle systolic dysfunction with ejection fraction calculated at 46%. Signed by : Lynne Graham, Electronically Approved : 12/02/2017 12:38:17 DICTATED and SIGNED BY: LYNNE GRAHAM MD DATE: 12/02/17 1238 Laboratory Tests Test 01/11/19 11:45 01/11/19 12:02 01/11/19 12:07 01/11/19 12:14 White Blood Count 13.7 x10^3/uL (4.0-11.0) Red Blood Count 4.19 x10^6/uL (3.50-5.40) Hemoglobin 13.8 g/dL (12.0-15.5) Hematocrit 42.3 % (36.0-47.0) Mean Corpuscular Volume 101 fL (79-100) Mean Corpuscular Hemoglobin 33 pg (25-35) Mean Corpuscular Hemoglobin Concent 33 g/dL (31-37) Red Cell Distribution Width 14.2 % (11.5-14.5) Platelet Count 224 x10^3/uL (140-400) Neutrophils (%) (Auto) 67 % (31-73) Lymphocytes (%) (Auto) 27 % (24-48) Monocytes (%) (Auto) 4 % (0-9) Eosinophils (%) (Auto) 1 % (0-3) Basophils (%) (Auto) 1 % (0-3) Neutrophils # (Auto) 9.2 x10^3uL (1.8-7.7) Lymphocytes # (Auto) 3.7 x10^3/uL (1.0-4.8) Monocytes # (Auto) 0.6 x10^3/uL (0.0-1.1) Eosinophils # (Auto) 0.2 x10^3/uL (0.0-0.7) Basophils # (Auto) 0.1 x10^3/uL (0.0-0.2) Urine Collection Type Unknown Urine Color Yellow Urine Clarity Clear Urine pH 6.5 Urine Specific Wilson 1.020 Urine Protein Negative mg/dL (NEG-TRACE) Urine Glucose (UA) Negative mg/dL (NEG) Urine Ketones (Stick) Negative mg/dL (NEG) Urine Blood Negative (NEG) Urine Nitrite Negative (NEG) Urine Bilirubin Negative (NEG) Urine Urobilinogen Dipstick 0.2 mg/dL (0.2 mg/dL) Urine Leukocyte Esterase Moderate (NEG) Urine RBC 0 /HPF (0-2) Urine WBC 5-10 /HPF (0-4) Urine Squamous Epithelial Cells Mod /LPF Urine Bacteria Mod /HPF (0-FEW) Urine Mucus Marked /LPF Urine Opiates Screen Neg (NEG) Urine Methadone Screen Neg (NEG) Urine Barbiturates Neg (NEG) Urine Phencyclidine Screen Neg (NEG) Urine Amphetamine/Methamphetamine Neg (NEG) Urine Benzodiazepines Screen Neg (NEG) Urine Cocaine Screen Neg (NEG) Urine Cannabinoids Screen Pos (NEG) Urine Ethyl Alcohol Neg (NEG) Bedside Urine HCG, Qualitative Hcg negative (Negative) Ethyl Alcohol Level < 10 mg/dL (0-10) Test 01/11/19 14:25 Sodium Level 141 mmol/L (136-145) Potassium Level 3.6 mmol/L (3.5-5.1) Chloride Level 103 mmol/L (98-107) Carbon Dioxide Level 24 mmol/L (21-32) Anion Gap 14 (6-14) Blood Urea Nitrogen 6 mg/dL (7-20) Creatinine 0.7 mg/dL (0.6-1.0) Estimated GFR (Cockcroft-Gault) 115.2 BUN/Creatinine Ratio 9 (6-20) Glucose Level 102 mg/dL (70-99) Calcium Level 9.6 mg/dL (8.5-10.1) Total Bilirubin 0.5 mg/dL (0.2-1.0) Aspartate Amino Transf (AST/SGOT) 18 U/L (15-37) Alanine Aminotransferase (ALT/SGPT) 23 U/L (14-59) Alkaline Phosphatase 76 U/L (46-116) Total Protein 8.3 g/dL (6.4-8.2) Albumin 4.3 g/dL (3.4-5.0) Albumin/Globulin Ratio 1.1 (1.0-1.7) Lipase 153 U/L (73-393) Assessment and Plan Assessmemt and Plan Problems Medical Problems: (1) Cyclical vomiting Status: Acute (2) Marijuana abuse Status: Acute Past Medical/Surgical History: PMH/PSH: Past Medical History: GERD, Hypertension Additional Past Medical Histor: CYCLIC VOMITING SYNDROME, OBESITY, chronic pain Past Surgical History: No Surgical History Additional Past Surgical Histo: EGD. Alcohol Use: Occasionally Drug Use: Marijuana Comment Review of Relevant I have reviewed the following items hany (where applicable) has been applied. Labs Laboratory Tests Test 01/11/19 11:45 01/11/19 12:02 01/11/19 12:07 01/11/19 12:14 White Blood Count 13.7 x10^3/uL (4.0-11.0) Red Blood Count 4.19 x10^6/uL (3.50-5.40) Hemoglobin 13.8 g/dL (12.0-15.5) Hematocrit 42.3 % (36.0-47.0) Mean Corpuscular Volume 101 fL (79-100) Mean Corpuscular Hemoglobin 33 pg (25-35) Mean Corpuscular Hemoglobin Concent 33 g/dL (31-37) Red Cell Distribution Width 14.2 % (11.5-14.5) Platelet Count 224 x10^3/uL (140-400) Neutrophils (%) (Auto) 67 % (31-73) Lymphocytes (%) (Auto) 27 % (24-48) Monocytes (%) (Auto) 4 % (0-9) Eosinophils (%) (Auto) 1 % (0-3) Basophils (%) (Auto) 1 % (0-3) Neutrophils # (Auto) 9.2 x10^3uL (1.8-7.7) Lymphocytes # (Auto) 3.7 x10^3/uL (1.0-4.8) Monocytes # (Auto) 0.6 x10^3/uL (0.0-1.1) Eosinophils # (Auto) 0.2 x10^3/uL (0.0-0.7) Basophils # (Auto) 0.1 x10^3/uL (0.0-0.2) Urine Collection Type Unknown Urine Color Yellow Urine Clarity Clear Urine pH 6.5 Urine Specific Wilson 1.020 Urine Protein Negative mg/dL (NEG-TRACE) Urine Glucose (UA) Negative mg/dL (NEG) Urine Ketones (Stick) Negative mg/dL (NEG) Urine Blood Negative (NEG) Urine Nitrite Negative (NEG) Urine Bilirubin Negative (NEG) Urine Urobilinogen Dipstick 0.2 mg/dL (0.2 mg/dL) Urine Leukocyte Esterase Moderate (NEG) Urine RBC 0 /HPF (0-2) Urine WBC 5-10 /HPF (0-4) Urine Squamous Epithelial Cells Mod /LPF Urine Bacteria Mod /HPF (0-FEW) Urine Mucus Marked /LPF Urine Opiates Screen Neg (NEG) Urine Methadone Screen Neg (NEG) Urine Barbiturates Neg (NEG) Urine Phencyclidine Screen Neg (NEG) Urine Amphetamine/Methamphetamine Neg (NEG) Urine Benzodiazepines Screen Neg (NEG) Urine Cocaine Screen Neg (NEG) Urine Cannabinoids Screen Pos (NEG) Urine Ethyl Alcohol Neg (NEG) Bedside Urine HCG, Qualitative Hcg negative (Negative) Ethyl Alcohol Level < 10 mg/dL (0-10) Test 01/11/19 14:25 Sodium Level 141 mmol/L (136-145) Potassium Level 3.6 mmol/L (3.5-5.1) Chloride Level 103 mmol/L (98-107) Carbon Dioxide Level 24 mmol/L (21-32) Anion Gap 14 (6-14) Blood Urea Nitrogen 6 mg/dL (7-20) Creatinine 0.7 mg/dL (0.6-1.0) Estimated GFR (Cockcroft-Gault) 115.2 BUN/Creatinine Ratio 9 (6-20) Glucose Level 102 mg/dL (70-99) Calcium Level 9.6 mg/dL (8.5-10.1) Total Bilirubin 0.5 mg/dL (0.2-1.0) Aspartate Amino Transf (AST/SGOT) 18 U/L (15-37) Alanine Aminotransferase (ALT/SGPT) 23 U/L (14-59) Alkaline Phosphatase 76 U/L (46-116) Total Protein 8.3 g/dL (6.4-8.2) Albumin 4.3 g/dL (3.4-5.0) Albumin/Globulin Ratio 1.1 (1.0-1.7) Lipase 153 U/L (73-393) Laboratory Tests Test 01/11/19 11:45 01/11/19 12:02 01/11/19 12:07 01/11/19 12:14 White Blood Count 13.7 x10^3/uL (4.0-11.0) Red Blood Count 4.19 x10^6/uL (3.50-5.40) Hemoglobin 13.8 g/dL (12.0-15.5) Hematocrit 42.3 % (36.0-47.0) Mean Corpuscular Volume 101 fL (79-100) Mean Corpuscular Hemoglobin 33 pg (25-35) Mean Corpuscular Hemoglobin Concent 33 g/dL (31-37) Red Cell Distribution Width 14.2 % (11.5-14.5) Platelet Count 224 x10^3/uL (140-400) Neutrophils (%) (Auto) 67 % (31-73) Lymphocytes (%) (Auto) 27 % (24-48) Monocytes (%) (Auto) 4 % (0-9) Eosinophils (%) (Auto) 1 % (0-3) Basophils (%) (Auto) 1 % (0-3) Neutrophils # (Auto) 9.2 x10^3uL (1.8-7.7) Lymphocytes # (Auto) 3.7 x10^3/uL (1.0-4.8) Monocytes # (Auto) 0.6 x10^3/uL (0.0-1.1) Eosinophils # (Auto) 0.2 x10^3/uL (0.0-0.7) Basophils # (Auto) 0.1 x10^3/uL (0.0-0.2) Urine Collection Type Unknown Urine Color Yellow Urine Clarity Clear Urine pH 6.5 Urine Specific Wilson 1.020 Urine Protein Negative mg/dL (NEG-TRACE) Urine Glucose (UA) Negative mg/dL (NEG) Urine Ketones (Stick) Negative mg/dL (NEG) Urine Blood Negative (NEG) Urine Nitrite Negative (NEG) Urine Bilirubin Negative (NEG) Urine Urobilinogen Dipstick 0.2 mg/dL (0.2 mg/dL) Urine Leukocyte Esterase Moderate (NEG) Urine RBC 0 /HPF (0-2) Urine WBC 5-10 /HPF (0-4) Urine Squamous Epithelial Cells Mod /LPF Urine Bacteria Mod /HPF (0-FEW) Urine Mucus Marked /LPF Urine Opiates Screen Neg (NEG) Urine Methadone Screen Neg (NEG) Urine Barbiturates Neg (NEG) Urine Phencyclidine Screen Neg (NEG) Urine Amphetamine/Methamphetamine Neg (NEG) Urine Benzodiazepines Screen Neg (NEG) Urine Cocaine Screen Neg (NEG) Urine Cannabinoids Screen Pos (NEG) Urine Ethyl Alcohol Neg (NEG) Bedside Urine HCG, Qualitative Hcg negative (Negative) Ethyl Alcohol Level < 10 mg/dL (0-10) Test 01/11/19 14:25 Sodium Level 141 mmol/L (136-145) Potassium Level 3.6 mmol/L (3.5-5.1) Chloride Level 103 mmol/L (98-107) Carbon Dioxide Level 24 mmol/L (21-32) Anion Gap 14 (6-14) Blood Urea Nitrogen 6 mg/dL (7-20) Creatinine 0.7 mg/dL (0.6-1.0) Estimated GFR (Cockcroft-Gault) 115.2 BUN/Creatinine Ratio 9 (6-20) Glucose Level 102 mg/dL (70-99) Calcium Level 9.6 mg/dL (8.5-10.1) Total Bilirubin 0.5 mg/dL (0.2-1.0) Aspartate Amino Transf (AST/SGOT) 18 U/L (15-37) Alanine Aminotransferase (ALT/SGPT) 23 U/L (14-59) Alkaline Phosphatase 76 U/L (46-116) Total Protein 8.3 g/dL (6.4-8.2) Albumin 4.3 g/dL (3.4-5.0) Albumin/Globulin Ratio 1.1 (1.0-1.7) Lipase 153 U/L (73-393) Medications Current Medications Metoclopramide HCl (Reglan Vial) 10 mg 1X ONCE IV ; Start 01/11/19 at 11:00; Stop 01/11/19 at 11:03; Status DC Diphenhydramine HCl (Benadryl) 50 mg 1X ONCE IVP ; Start 01/11/19 at 11:00; Stop 01/11/19 at 11:03; Status DC Fentanyl Citrate (Fentanyl 2ml Vial) 50 mcg 1X ONCE IV ; Start 01/11/19 at 11:00; Stop 01/11/19 at 11:03; Status DC Diphenhydramine HCl (Benadryl) 50 mg 1X ONCE IM Last administered on 01/11/19at 11:23; Start 01/11/19 at 11:00; Stop 01/11/19 at 11:07; Status DC Metoclopramide HCl (Reglan Vial) 10 mg 1X ONCE IM ; Start 01/11/19 at 11:00; Stop 01/11/19 at 11:08; Status DC Ondansetron HCl (Zofran) 4 mg 1X ONCE IM Last administered on 01/11/19at 11:23; Start 01/11/19 at 11:15; Stop 01/11/19 at 11:16; Status DC Lorazepam (Ativan) 2 mg 1X ONCE IM Last administered on 01/11/19at 12:30; Start 01/11/19 at 12:15; Stop 01/11/19 at 12:19; Status DC Pantoprazole Sodium (Protonix) 40 mg 1X ONCE PO Last administered on 01/11/19at 12:30; Start 01/11/19 at 12:15; Stop 01/11/19 at 12:19; Status DC Ondansetron HCl (Zofran) 4 mg 1X ONCE IM Last administered on 01/11/19at 12:30; Start 01/11/19 at 12:15; Stop 01/11/19 at 12:19; Status DC Ceftriaxone Sodium (Rocephin Im) 1 gm 1X ONCE IM Last administered on 01/11/19at 14:04; Start 01/11/19 at 13:45; Stop 01/11/19 at 13:46; Status DC Ondansetron HCl (Zofran) 4 mg PRN Q8HRS PRN IV NAUSEA/VOMITING; Start 01/11/19 at 13:45; Stop 01/11/19 at 13:56; Status DC Acetaminophen (Tylenol) 650 mg PRN Q4HRS PRN PO FEVER; Start 01/11/19 at 13:45; Stop 01/12/19 at 13:44 Ondansetron HCl (Zofran) 4 mg PRN Q8HRS PRN IM NAUSEA/VOMITING Last administered on 01/12/19at 08:42; Start 01/11/19 at 14:00 Fentanyl Citrate (Fentanyl 2ml Vial) 75 mcg PRN Q4HRS PRN IM PAIN Last administered on 01/12/19at 07:34; Start 01/11/19 at 18:30 Lorazepam (Ativan) 2 mg PRN Q4HRS PRN IM ANXIETY / AGITATION Last administered on 01/12/19at 08:46; Start 01/11/19 at 18:30 Haloperidol Lactate (Haldol Inj) 5 mg PRN Q8HRS PRN IM ANXIETY / AGITATION Last administered on 01/11/19at 19:46; Start 01/11/19 at 18:30 Clonidine HCl (Catapres Tts-1) 1 patch WEEKLY TD ; Start 01/15/19 at 09:00 Dicyclomine HCl (Bentyl) 20 mg QID PO ; Start 01/12/19 at 09:00 Gabapentin (Neurontin) 300 mg DAILY PO ; Start 01/12/19 at 09:00 Hydrochlorothiazide (Microzide) 12.5 mg DAILY PO Last administered on 01/12/19at 09:54; Start 01/12/19 at 09:00 Lisinopril (Prinivil) 40 mg DAILY PO Last administered on 01/12/19at 09:54; Start 01/12/19 at 09:00 Pantoprazole Sodium (Protonix) 40 mg DAILYAC PO ; Start 01/12/19 at 08:00 Promethazine HCl (Phenergan) 25 mg PRN Q4HRS PRN PO NAUSEA/VOMITING; Start 01/12/19 at 08:00 Active Scripts Active Reported Promethazine Hcl 25 Mg Tablet 25 Mg PO PRN Q4HRS PRN Hydrochlorothiazide Tablet (Hydrochlorothiazide) 12.5 Mg Tablet 12.5 Mg PO DAILY Lisinopril 40 Mg Tablet 40 Mg PO DAILY Gabapentin 300 Mg Capsule 300 Mg PO DAILY Clonidine Tts-1 (Clonidine) 1 Each Patch.tdwk 0.1 Mg TD WEEKLY Dicyclomine Hcl 20 Mg Tablet 20 Mg PO QID Omeprazole 40 Mg Capsule.dr 40 Mg PO DAILY Vitals/I & O Vital Sign - Last 24 Hours 01/11/19 01/11/19 01/11/19 01/11/19 10:25 10:38 11:20 11:36 Temp 98.6 98.6 Pulse 85 75 65 Resp 16 18 B/P (MAP) 220/115 (150) 219/126 (157) 173/100 (124) 205/107 (139) Pulse Ox 96 99 O2 Delivery Room Air Room Air 01/11/19 01/11/19 01/11/19 01/11/19 13:09 14:20 15:00 19:00 Temp 98.7 99.7 98.7 99.7 Pulse 107 98 69 60 Resp 20 20 20 B/P (MAP) 203/1 (68) 196/101 (132) 197/134 (155) Pulse Ox 100 99 92 97 O2 Delivery Room Air Room Air Room Air Room Air 01/11/19 01/12/19 01/12/19 01/12/19 23:00 03:00 07:00 08:00 Temp 99.7 99.0 98.6 99.7 99.0 98.6 Pulse 112 87 105 Resp 20 20 18 B/P (MAP) 151/101 (118) 169/120 (136) 158/105 (122) Pulse Ox 100 100 98 O2 Delivery Room Air Room Air Room Air Room Air 01/12/19 09:54 Pulse 105 B/P (MAP) 158/105 Intake and Output 01/11/19 01/11/19 01/12/19 15:00 23:00 07:00 Intake Total 300 ml Output Total 200 ml Balance -200 ml 300 ml REYNA HENRIQUEZ MD January 12, 2019 10:00
[2019-01-12 10:29] LABS: BASO % 0 % (0-3); EOS # 0.1 x10^3/uL (0.0-0.7); EOS % 0 % (0-3); HEMATOCRIT 41.9 % (36.0-47.0); HEMOGLOBIN 13.7 g/dL (12.0-15.5); LYMPH # 3.6 x10^3/uL (1.0-4.8); LYMPH % 25 % (24-48); MEAN CORPUSCULAR HEMOGLOBIN 33 pg (25-35); MEAN CORPUSCULAR HGB CONC 33 g/dL (31-37); MEAN CORPUSCULAR VOLUME 99 fL (79-100); MONO % 7 % (0-9); NEUT # 9.9 x10^3uL (1.8-7.7); NEUT % 68 % (31-73); PLATELET COUNT 298 x10^3/uL (140-400); RED BLOOD COUNT 4.22 x10^6/uL (3.50-5.40); RED CELL DISTRIBUTION WIDTH 13.4 % (11.5-14.5); WHITE BLOOD COUNT 14.6 x10^3/uL (4.0-11.0)
[2019-01-12 10:48] LABS: ALBUMIN/GLOBULIN RATIO 1.1 (1.0-1.7); CALCIUM 9.6 mg/dL (8.5-10.1); CREATININE 0.8 mg/dL (0.6-1.0); GFR 98.8; TOTAL BILIRUBIN 0.6 mg/dL (0.2-1.0); TOTAL PROTEIN 7.7 g/dL (6.4-8.2)
[2019-01-12 10:56] LABS: POTASSIUM 2.9 mmol/L (3.5-5.1)
--- NOTE | 2019-01-12 11:00 | NUR ---
critical K+ of 2.9 reported to NAMRATA Suarez and Dr. Douglas
--- NOTE | 2019-01-12 12:21 | RAD ---
Examination: CT ABDOMEN PELVIS WO CONTRAST History: Pain Comparison/Correlation: 02/21/2018 CT abdomen and pelvis without contrast Findings: Axial images of the abdomen and pelvis were obtained without contrast. Sagittal and coronal reformatted images were provided. Visualized lung bases are clear. Cholecystectomy noted. Liver, spleen, pancreas, and adrenal glands are unremarkable. No radiopaque collecting system calculi. No extraluminal gas. Appendix is normal. Moderate quantity of stool in the colon noted. No bowel obstruction. No enlarged abdominal or pelvic lymph nodes. Uterus is grossly unremarkable. Left adnexal follicle measuring 2.3 cm diameter is physiologic in appearance. Urinary bladder is unremarkable. Bilateral sacroiliitis noted with vacuum phenomenon. No acute bony process. Impression: No suspicious process. PQRS Compliance Statement: One or more of the following individualized dose reduction techniques were utilized for this examination: 1. Automated exposure control 2. Adjustment of the mA and/or kV according to patient size 3. Use of iterative reconstruction technique Electronically signed by: Poncho Bonilla MD (01/12/2019 12:18 PM) [id number]
--- NOTE | 2019-01-12 12:31 | NUR ---
SW consulted for frequent admission and Psych eval. SW phoned PAT team for assessment and evaluation. Bryant will come in to see pt today.
--- NOTE | 2019-01-12 12:44 | PDOC2 ---
LIZZETTE BARRAGAN DOLLY PUSHER 01/12/19 1244: CARDIAC CONSULT DATE OF CONSULT Date of Consult DATE: 01/12/19 TIME: 12:32 REASON FOR CONSULT Reason for Consult: Abnormal stress test 2018 REFERRING PHYSICIAN Referring Physician: Fullbright SOURCE Source: Chart review, Patient HISTORY OF PRESENT ILLNESS HISTORY OF PRESENT ILLNESS This is a pleasant 33 yo female admitted for complains of vomiting. She has been having nausea intermittently in the last few days and eventually the other day she ate at [employer] at lunch break and then went back to work and started vomiting. She also has been having some intermittent chest tightness in the last few weeks at work mostly due to heavy exetions and also HANKS with fatigue. Reports that she takes BP meds but does not check her BP. No palpitations, dizziness, recent falls or injury. She was noted last yr with abnormal stress test but did not show up for [facility] as an outpt. She has not seen any bead forming machine operator since that inpt visit. She smokes tobacco, marijuana. PAST MEDICAL HISTORY Past Medical History Cardiovascular: HTN, abnormal stress test. Pulmonary: Asthma GI: Other (cyclic vomiting syndrome), gastroparesis, GERD Neuro: Seizure PAST SURGICAL HISTORY Past Surgical History Cholecystectomy, Tonsillectomy FAMILY HISTORY Family History Mother had coronary stents in her 40s. SOCIAL HISTORY Social History 1ppd smoker, no significant ETOH, no illicit drugs CURRENT MEDICATIONS CURRENT MEDICATIONS Current Medications Medications (Trade) Dose Ordered Sig/Benita Route PRN Reason Start Time Stop Time Status Last Admin Dose Admin Ceftriaxone Sodium (Rocephin Im) 1 gm 1X ONCE IM 01/11/19 13:45 01/11/19 13:46 DC 01/11/19 14:04 Ondansetron HCl (Zofran) 4 mg PRN Q8HRS PRN IM NAUSEA/VOMITING 01/11/19 14:00 01/12/19 08:42 Fentanyl Citrate (Fentanyl 2ml Vial) 75 mcg PRN Q4HRS PRN IM PAIN 01/11/19 18:30 01/12/19 07:34 Lorazepam (Ativan) 2 mg PRN Q4HRS PRN IM ANXIETY / AGITATION 01/11/19 18:30 01/12/19 08:46 Haloperidol Lactate (Haldol Inj) 5 mg PRN Q8HRS PRN IM ANXIETY / AGITATION 01/11/19 18:30 01/11/19 19:46 Hydrochlorothiazide (Microzide) 12.5 mg DAILY PO 01/12/19 09:00 01/12/19 09:54 Lisinopril (Prinivil) 40 mg DAILY PO 01/12/19 09:00 01/12/19 09:54 ALLERGIES ALLERGIES: Coded Allergies: metoclopramide HCl (Verified Allergy, Intermediate, 01/21/14) ROS Review of System 14 point ROS evaluated with pertinent positives noted per HPI PHYSICAL EXAM General: Alert, Oriented X3, Cooperative, No acute distress HEENT: Atraumatic, Mucous membr. moist/pink Lungs: Clear to auscultation, Normal air movement Heart: Regular rate, Other (S4 3/6 systolic murmur to apex) Abdomen: Soft, Other (mild tenderness to abd with palpation) Extremities: No cyanosis, No edema Skin: No breakdown, No significant lesion Neuro: Normal speech, Sensation intact Psych/Mental Status: Mental status NL, Mood NL, Other (slightly drowsy) MUSCULOSKELETAL: Full range of motion without pain VITALS VITALS Vital Signs Date Time Temp Pulse Resp B/P (MAP) Pulse Ox O2 Delivery O2 Flow Rate FiO2 01/12/19 11:00 97.3 83 18 175/103 (127) 99 Room Air 97.3 LABS Lab: Laboratory Tests Test 01/11/19 14:25 01/12/19 06:50 01/12/19 09:50 Sodium Level 141 mmol/L (136-145) 138 mmol/L (136-145) Potassium Level 3.6 mmol/L (3.5-5.1) 2.9 mmol/L (3.5-5.1) Chloride Level 103 mmol/L (98-107) 101 mmol/L (98-107) Carbon Dioxide Level 24 mmol/L (21-32) 24 mmol/L (21-32) Anion Gap 14 (6-14) 13 (6-14) Blood Urea Nitrogen 6 mg/dL (7-20) 7 mg/dL (7-20) Creatinine 0.7 mg/dL (0.6-1.0) 0.8 mg/dL (0.6-1.0) Estimated GFR (Cockcroft-Gault) 115.2 98.8 BUN/Creatinine Ratio 9 (6-20) 9 (6-20) Glucose Level 102 mg/dL (70-99) 127 mg/dL (70-99) Calcium Level 9.6 mg/dL (8.5-10.1) 9.6 mg/dL (8.5-10.1) Total Bilirubin 0.5 mg/dL (0.2-1.0) 0.6 mg/dL (0.2-1.0) Aspartate Amino Transf (AST/SGOT) 18 U/L (15-37) 14 U/L (15-37) Alanine Aminotransferase (ALT/SGPT) 23 U/L (14-59) 21 U/L (14-59) Alkaline Phosphatase 76 U/L (46-116) 71 U/L (46-116) Total Protein 8.3 g/dL (6.4-8.2) 7.7 g/dL (6.4-8.2) Albumin 4.3 g/dL (3.4-5.0) 4.0 g/dL (3.4-5.0) Albumin/Globulin Ratio 1.1 (1.0-1.7) 1.1 (1.0-1.7) Lipase 153 U/L (73-393) White Blood Count 14.6 x10^3/uL (4.0-11.0) Red Blood Count 4.22 x10^6/uL (3.50-5.40) Hemoglobin 13.7 g/dL (12.0-15.5) Hematocrit 41.9 % (36.0-47.0) Mean Corpuscular Volume 99 fL (79-100) Mean Corpuscular Hemoglobin 33 pg (25-35) Mean Corpuscular Hemoglobin Concent 33 g/dL (31-37) Red Cell Distribution Width 13.4 % (11.5-14.5) Platelet Count 298 x10^3/uL (140-400) Neutrophils (%) (Auto) 68 % (31-73) Lymphocytes (%) (Auto) 25 % (24-48) Monocytes (%) (Auto) 7 % (0-9) Eosinophils (%) (Auto) 0 % (0-3) Basophils (%) (Auto) 0 % (0-3) Neutrophils # (Auto) 9.9 x10^3uL (1.8-7.7) Lymphocytes # (Auto) 3.6 x10^3/uL (1.0-4.8) Monocytes # (Auto) 1.0 x10^3/uL (0.0-1.1) Eosinophils # (Auto) 0.1 x10^3/uL (0.0-0.7) Basophils # (Auto) 0.0 x10^3/uL (0.0-0.2) ECHOCARDIOGRAM ECHOCARDIOGRAM <Conclusion> The left ventricular systolic function is normal and the ejection fraction is within normal range. The Ejection Fraction is 55-60%. There is normal LV segmental wall motion. DATE: 12/01/17 1341 STRESS TEST STRESS TEST Conclusion 1. Regadenoson cardioisotope stress test showed small amount of anterior wall ischemia with transient ischemic dilatation. Consider cardiac catheterization. 2. Mild left ventricle systolic dysfunction with ejection fraction calculated at 46%. DATE: 12/02/17 1238 ASSESSMENT/PLAN ASSESSMENT/PLAN 1. Nausea and vomiting/ leukocytosis with hx of gastroparesis: suspicious for unstable angina 2. Past abnormal MPI: 11/2017 need LHC but failed to show up. 3. Abd pain: CT no acute changes 4. Accelerated HTN: labile 5. Family hx of premature CAD 6. Obesity 7. Marijuana use. 8. Tobaccoism Recommendations 1. TTE, troponin, EKG, lipids and check Mg 2. Hydralazine IV PRN. Continue home BP regimen 3. ASA. Replace K 4. Will consider for LHC today for suspicion of UA presentation with exertional CP, HANKS 5. Smoking and marijuana cessation LYNNE JOHNSTON MD 01/12/19 1420: CARDIAC CONSULT ASSESSMENT/PLAN ASSESSMENT/PLAN Patient seen and examined. Agree with PANAMA HAT BLOCKER's assessment and plan. Chest pain with mixed features. Patient has strong family history of premature coronary artery disease and has had positive stress test with transient ischemic dilatation in the recent past. Agree with cardiac catheterization and possible angioplasty. Risks and benefits were explained and she is agreeable. Thank you for your consultation. LIZZETTE BARRAGAN APRN January 12, 2019 12:44 LYNNE JOHNSTON MD January 12, 2019 14:20
[2019-01-12] MEDS ORDERED: ASPIRIN ENTERIC COATED 325 MG TABLET.DR. PO ONE (12:45)
[2019-01-12 13:23] LABS: CHOLESTEROL/HDL RATIO 2.9
--- NOTE | 2019-01-12 13:23 | NUR ---
Pt seen by Bryant and minimizes marijuana use. Pt is provided information for [facility] and has agreed to call and make intake assessment. Pt denies need for ELSA treatment at this time but is provided with resources.
[2019-01-12] MEDS ORDERED: POTASSIUM CHLORIDE 20 MEQ TABLET.ER. PO ONE ×2 (13:30)
[2019-01-12] MEDS ORDERED: hydrALAZINE 20 MG/ML VIAL. IVP ONE ×2 (13:30→15:00)
--- NOTE | 2019-01-12 13:44 | NUR ---
hydralazine not give d/t pt not on tele
[2019-01-12] MEDS ORDERED: amLODIPine BESYLATE 10 MG TABLET PO ONE (13:45)
[2019-01-12] MEDS ORDERED: LIDOCAINE 1% PF 2 ML VIAL. ONE (14:01)
[2019-01-12] MEDS ORDERED: IOHEXOL 300 MG/ML 100ML VIAL. ONE (14:01)
--- NOTE | 2019-01-12 14:27 | NUR ---
laborer car barn to get patient. when staff walked into room, pt immediately began thrashing, even though she had been falling asleep signed consent forms approximately 5 minutes prior. pt crying and yelling "i need my nurse". im fentanyl given.
[2019-01-12] MEDS ORDERED: HEPARIN for IV BOLUS 10,000 UNIT/10 ML VIAL. ONE (14:31)
[2019-01-12] MEDS ORDERED: MIDAZOLAM HCL/PF 5 MG/5 ML VIAL. ONE (14:31)
[2019-01-12] MEDS ORDERED: fentaNYL PF VIAL 100 MCG/2 ML VIAL ONE (14:31)
[2019-01-12] MEDS ORDERED: VERAPAMIL 5 MG/2 ML VIAL. ONE (14:31)
[2019-01-12] MEDS ORDERED: NITROGLYCERIN 200 MCG/2 ML SYRINGE FOR CATH/VASC LAB. ONE (14:31)
[2019-01-12] MEDS ORDERED: hydrALAZINE 20 MG/ML VIAL. ONE (14:45)
[2019-01-12] MEDS: IV 1/2 NORMAL SALINE 1,000 ML IV SCH (14:54)
--- NOTE | 2019-01-12 14:54 | PDOC ---
MODERATE SEDATION ASSESSMENT RISKS/ALTERNATIVES Risks/Alternatives Risks and alternatives of this type of sedation and procedure discussed with: RISK/ALTERNATIVES: Patient H & P ON CHART H & P H & P on chart and reviewed for co-morbid conditions and appropriate labs. H&P ON CHART: Yes STATUS PREG STATUS ASSESSED: N/A MEDS/ALLERGIES REVIEWED Meds/Allergies Reviewed Medications and Allergies including time and route of recently administered narcotics and sedatives. MEDS/ALLERGIES REVIEWED: Yes ASA RATING ASA RATING: II AIRWAY ASSESSMENT Airway Assessment Airway patency, oral function limitations, presence of caps, crowns, dentures, partials, and ability to extend neck assessed. AIRWAY ASSESSMENT: Yes MALLAMPATI SCORE MALLAMPATI SCORE: II PRE-SEDATION ASSESSMENT PRE-SEDATION ASSESSMENT: Yes LYNNE JOHNSTON MD January 12, 2019 14:54
--- NOTE | 2019-01-12 14:58 | CARD ---
MR#: [id number] Date of Study: 01/12/2019 Ordering Physician: LIZZETTE BARRAGAN, Referring Physician: KOFFI LANDEROS Tech: RT Amena (R) APPROVED REPORT Technologist: RT Amena (R) Nurse: Aixa Martin R.N. Procedure(s) performed: Left heart catheterization and selective coronary angiography via right trans radial approach INDICATION The indication(s) include : unstable angina . PROCEDURE NARRATIVE After explaining the risks, benefits and alternative options, informed consent was obtained from chichi ent. Patient was brought to the cardiac Bulldogger and right wrist was prepped and draped in the usual fashion after confirming a positive modified Salomon's test. Arterial access was obtained in the righ t radial artery and a 6 Zimbabwean sheath was inserted. 6 [place]an Bartolo catheter was used to perform aby ective angiography of the left and right coronary arteries. LVEDP and transaortic gradients remeasure d. Patient tolerated the procedure well. Hemostasis was achieved using TR band. There were no imme diate complications. The following findings were noted. FINDINGS 1. Hemodynamics: Left ventricular end-diastolic pressure of 20 mmHg. No pullback gradient across th e aortic valve. 2. Coronary angiography: a. The left main coronary artery arose from the left sinus of Valsalva, gave rise to the left anteri or descending and left circumflex arteries and did not show any significant stenosis. b. The left anterior descending artery did not show any significant stenosis. c. The left circumflex artery did not show any significant stenosis. d. The right coronary artery was a large and dominant vessel arising from the right sinus of Valsalv a that did not show any significant stenosis. Conclusion No significant coronary artery disease Recommendations Cardiovascular risk factor modification Signed by : Elie Graham, Electronically Approved : 01/12/2019 14:57:35
[2019-01-12] MEDS ORDERED: IOHEXOL 300 MG/ML 100ML VIAL. IART ONE (15:00)
[2019-01-12] MEDS ORDERED: LIDOCAINE 1% PF 2 ML VIAL. INJ ONE (15:00)
[2019-01-12] MEDS ORDERED: VERAPAMIL 5 MG/2 ML VIAL. IART ONE (15:00)
[2019-01-12] MEDS ORDERED: HEPARIN for IV BOLUS 10,000 UNIT/10 ML VIAL. IART ONE (15:00)
[2019-01-12] MEDS ORDERED: fentaNYL PF VIAL 100 MCG/2 ML VIAL IV ONE (15:00)
[2019-01-12] MEDS ORDERED: NITROGLYCERIN 200 MCG/2 ML SYRINGE FOR CATH/VASC LAB. IART ONE (15:00)
[2019-01-12] MEDS ORDERED: CONTRAST GIVEN. MC PRN (15:00)
[2019-01-12] MEDS ORDERED: MIDAZOLAM HCL/PF 5 MG/5 ML VIAL. IV ONE (15:00)
[2019-01-12] MEDS: hydrALAZINE 20 MG/ML VIAL. IVP PRN (15:24)
[2019-01-12] MEDS: cefTRIAXone IV Push 1 GM VIAL. IVP SCH (15:27)
--- NOTE | 2019-01-12 16:35 | CARD ---
MR#: [id number] Date of Study: 01/12/2019 Ordering Physician: REYNA HENRIQUEZ, Referring Physician: KOFFI LANDEROS Tech: Sinai Capone JAZMINE APPROVED REPORT EXAM: Two-dimensional and M-mode echocardiogram with Doppler and color Doppler. Other Information Quality : AverageHR: 70bpm Rhythm : Other INDICATION History of Abnormal stress test 2D DIMENSIONS RVDd3.3 (2.9-3.5cm)Left Atrium(2D)4.7 (1.6-4.0cm) IVSd1.6 (0.7-1.1cm)Aortic Root(2D)3.1 (2.0-3.7cm) LVDd5.0 (3.9-5.9cm)LVOT Diameter2.5 (1.8-2.4cm) PWd1.1 (0.7-1.1cm)LVDs3.6 (2.5-4.0cm) FS (%) 27.3 %SV62.8 ml LVEF(%)53.0 (>50%) M-Mode DIMENSIONS Left Atrium(MM)4.32 (2.5-4.0cm)Aortic Root3.57 (2.2-3.7cm) Aortic Valve AoV Peak Thony.170.9cm/sAoV VTI32.2cm AO Peak GR.11.7mmHgLVOT Peak Thony.135.5cm/s AO Mean GR.6mmHgAVA (VMAX)3.96cm2 CALIXTO (VTI)3.63nx2YF P 1/2 Wboo824ep Mitral Valve MV E Cyyuyize325.3cm/sMV E Peak Gr.7mmHg MV DECEL [id number] A Iclsitvc97.3cm/s MV E Mean Gr.2mmHgE/A Ratio2.1 Pulmonary Valve PV Peak Afeornpy819.5cm/s LEFT VENTRICLE The left ventricle is normal size. Proximal septal thickening is noted. Left ventricle systolic funct ion is low normal. The Ejection Fraction is 50-55%. There is normal LV segmental wall motion. Transmi tral Doppler flow pattern is Grade II-pseudonormal filling dynamics. RIGHT VENTRICLE The right ventricle is normal size. There is normal right ventricular wall thickness. The right ventr icular systolic function is normal. ATRIA The left atrium is mildly dilated. The right atrium size is normal. The interatrial septum is intact with no evidence for an atrial septal defect or patent foramen ovale as noted on 2-D or Doppler imagi ng. AORTIC VALVE The aortic valve is normal in structure and function. The aortic valve is trileaflet. Doppler and Col or Flow revealed mild to moderate aortic regurgitation. There is no significant aortic valvular steno sis. There is no aortic valvular vegetation. MITRAL VALVE The mitral valve is normal in structure and function. There is no evidence of mitral valve prolapse. There is no mitral valve stenosis. Doppler and Color-flow revealed trace mitral regurgitation. TRICUSPID VALVE The tricuspid valve is normal in structure and function. Doppler and Color Flow revealed no tricuspid valve regurgitation noted. There is no tricuspid valve prolapse or vegetation. There is no tricuspid valve stenosis. PULMONIC VALVE The pulmonary valve is normal in structure and function. Doppler and Color Flow revealed trace pulmon ic valvular regurgitation. There is no pulmonic valvular stenosis. GREAT VESSELS The aortic root is normal in size. The ascending aorta is normal in size. The IVC was not visualized. PERICARDIAL EFFUSION There is no evidence of significant pericardial effusion. Critical Notification Critical Value: No <Conclusion> Left ventricle systolic function is low normal. The Ejection Fraction is 50-55%. There is normal LV segmental wall motion. Doppler and Color Flow revealed mild to moderate aortic regurgitation. Signed by : Donis Hernandez, Electronically Approved : 01/12/2019 16:34:54
[2019-01-12] MEDS: HALOPERIDOL LACTATE 5 MG/ML VIAL. IVP PRN (16:37)
--- NOTE | 2019-01-12 17:15 | NUR ---
Patient arrived to room around 1515 severely agitated and complaining of pain everywhere. Patient was thrashing in bed. Many attempts were made to relax the patient but the patient continued to yell "I just don't feel right. I feel like I am going to ." Patient was given fentanyl, ativan, and haldol along with BP medication because SBP was in the 230's. The patient continued to rock aggressively in the bed. Patients mother was called and updated on current situation and asked to come and visit the patient. When the mother arrived she tried calming the patient down and it helped momentarily. The patient has continued to be extremely agitated and continuously reminded that she needs to relax and try to calm down. Patient vital signs have improved but the restlessness has mildly improved at this time. Will continue monitoring patient.
[2019-01-12] MEDS: fentaNYL PF VIAL 100 MCG/2 ML VIAL IV PRN (17:37)
[2019-01-12] MEDS: FAMOTIDINE 20 MG/2 ML VIAL IVP SCH (20:40)
[2019-01-12] MEDS: ATORVASTATIN CALCIUM 20 MG TABLET PO SCH (20:40)
[2019-01-13] VITALS (8 sets, daily range): BP systolic 84–221; BP diastolic 50–125
[2019-01-13] MEDS: fentaNYL PF VIAL 100 MCG/2 ML VIAL IV PRN ×2 (03:44→07:06)
[2019-01-13] MEDS: PROMETHAZINE 12.5 MG TABLET. PO PRN ×3 (03:45→17:20)
[2019-01-13] MEDS: hydrALAZINE 20 MG/ML VIAL. IVP PRN ×2 (03:45→14:12)
[2019-01-13 03:51] LABS: BASO # 0.1 x10^3/uL (0.0-0.2); BASO % 0 % (0-3); EOS # 0.1 x10^3/uL (0.0-0.7); EOS % 1 % (0-3); HEMATOCRIT 44.1 % (36.0-47.0); HEMOGLOBIN 14.9 g/dL (12.0-15.5); LYMPH # 4.5 x10^3/uL (1.0-4.8); LYMPH % 30 % (24-48); MEAN CORPUSCULAR HEMOGLOBIN 33 pg (25-35); MEAN CORPUSCULAR HGB CONC 34 g/dL (31-37); MEAN CORPUSCULAR VOLUME 99 fL (79-100); MONO % 7 % (0-9); NEUT # 9.3 x10^3uL (1.8-7.7); NEUT % 62 % (31-73); PLATELET COUNT 326 x10^3/uL (140-400); RED BLOOD COUNT 4.47 x10^6/uL (3.50-5.40); RED CELL DISTRIBUTION WIDTH 13.7 % (11.5-14.5)
[2019-01-13] MEDS: HALOPERIDOL LACTATE 5 MG/ML VIAL. IVP PRN (04:17)
[2019-01-13 04:20] LABS: CALCIUM 9.7 mg/dL (8.5-10.1); CREATININE 0.9 mg/dL (0.6-1.0); GFR 86.2; POTASSIUM 3.1 mmol/L (3.5-5.1); TOTAL BILIRUBIN 0.7 mg/dL (0.2-1.0); TOTAL PROTEIN 7.9 g/dL (6.4-8.2)
[2019-01-13] MEDS: IV 1/2 NORMAL SALINE 1,000 ML IV SCH (07:34)
[2019-01-13] MEDS: hydroCHLOROthiazide 12.5 MG CAPSULE PO SCH (08:15)
[2019-01-13] MEDS: FAMOTIDINE 20 MG/2 ML VIAL IVP SCH (08:15)
[2019-01-13] MEDS: LISINOPRIL 20 MG TABLET PO SCH (08:16)
[2019-01-13] MEDS: GABAPENTIN 300 MG CAPSULE. PO SCH (08:17)
[2019-01-13] MEDS: DICYCLOMINE HCL 10 MG CAPSULE PO SCH ×4 (08:17→21:00)
--- NOTE | 2019-01-13 08:44 | PDOC ---
PROGRESS NOTES History of Present Illness History of Present Illness Assessment/Plan Assessment/Plan Severe abdominal pain nausea vomiting with some mild leukocytosis Regadenoson cardioisotope stress test showed small amount of anterior wall ischemia with transient ischemic dilatation. Consider cardiac catheterization. Mild left ventricle systolic dysfunction with ejection fraction calculated at 46%. [place] 2018 mild to moderate aortic regurgitation. hypokalemia Plan Consult GI IM Ativan IMHaldol IM fentanyl iv k I M Rocephin IV fluids resume her home meds DVT prophylaxis Full code IN 2018 Regadenoson cardioisotope stress test showed small amount of anterior wall ischemia with transient ischemic dilatation. Consider cardiac catheterization. Mild left ventricle systolic dysfunction with ejection fraction calculated at 46%. 37 MIN PT EXAM, CHART REVIEW, > 50% OF TIME SPENT WITH EXAM.,chart review, pt care coordination Vitals Vitals Vital Signs Date Time Temp Pulse Resp B/P (MAP) Pulse Ox O2 Delivery O2 Flow Rate FiO2 01/13/19 08:16 105 157/115 01/13/19 07:35 Room Air 01/13/19 07:00 98.1 18 97 98.1 01/12/19 15:11 2.0 Physical Exam Physical Exam SKIN: No bruising, hair changes or rashes. EYES: No blurred, double or loss of vision. NOSE AND THROAT: No history of nosebleeds, hoarseness or sore throat. HEART: No history of palpitations, chest pain or shortness of breath on exertion. LUNGS: Denies cough, hemoptysis, wheezing or shortness of breath. GASTROINTESTINAL: She complains of severe abdominal pain GENITOURINARY: No history of frequency, urgency, hesitancy or nocturia. NEUROLOGIC: Denies history of numbness, tingling, tremor or weakness. PSYCHIATRIC: No history of panic, anxiety or depression. ENDOCRINE: No history of heat or cold intolerance, polyuria or polydipsia. EXTREMITIES: Denies muscle weakness, joint pain, pain on walking or stiffness. General: Alert, Oriented X3, Cooperative, No acute distress, mild distress Heart: Regular rate, Normal S1, Normal S2, Other (S4 3/6 systolic murmur to apex) Lungs: Clear, Other Abdomen: Normal bowel sounds, Soft, No hepatosplenomegaly, Other (mild tenderness to abd with palpation) Extremities: No cyanosis, No edema Skin: No breakdown, No significant lesion Labs LABS SEX: F EXAM STATUS: ADM IN ORD. PHYSICIAN: REYNA HENRIQUEZ MD REASON: PAIN PROCEDURE: CT ABDOMEN PELVIS WO CONTRAST Examination: CT ABDOMEN PELVIS WO CONTRAST History: Pain Comparison/Correlation: 02/21/2018 CT abdomen and pelvis without contrast Findings: Axial images of the abdomen and pelvis were obtained without contrast. Sagittal and coronal reformatted images were provided. Visualized lung bases are clear. Cholecystectomy noted. Liver, spleen, pancreas, and adrenal glands are unremarkable. No radiopaque collecting system calculi. No extraluminal gas. Appendix is normal. Moderate quantity of stool in the colon noted. No bowel obstruction. No enlarged abdominal or pelvic lymph nodes. Uterus is grossly unremarkable. Left adnexal follicle measuring 2.3 cm diameter is physiologic in appearance. Urinary bladder is unremarkable. Bilateral sacroiliitis noted with vacuum phenomenon. No acute bony process. Impression: No suspicious process. PQRS Compliance Statement: One or more of the following individualized dose reduction techniques were utilized for this examination: 1. Automated exposure control 2. Adjustment of the mA and/or kV according to patient size 3. Use of iterative reconstruction technique Electronically signed by: Poncho Bonilla MD (01/12/2019 12:18 PM) [id number] MR#: [id number] Date of Study: 01/12/2019 Ordering Physician: LIZZETTE BARRAGAN Referring Physician: KOFFI LANDEROS Tech: RT Amena (R) APPROVED REPORT Technologist: RT Amena (R) Nurse: Aixa Martin R.N. Procedure(s) performed: Left heart catheterization and selective coronary angiography via right transradial approach INDICATION The indication(s) include : unstable angina . PROCEDURE NARRATIVE After explaining the risks, benefits and alternative options, informed consent was obtained from patient. Patient was brought to the cardiac Staffing Assistant and right wrist was prepped and draped in the usual fashion after confirming a positive modified Salomon's test. Arterial access was obtained in the right radial artery and a 6 Cam[place]onian sheath was inserted. 6 [place] Bartolo catheter was used to perform selective angiography of the left and right coronary arteries. LVEDP and transaortic gradients remeasured. Patient tolerated the procedure well. Hemostasis was achieved using TR band. There were no immediate complications. The following findings were noted. FINDINGS 1. Hemodynamics: Left ventricular end-diastolic pressure of 20 mmHg. No pullback gradient across the aortic valve. 2. Coronary angiography: a. The left main coronary artery arose from the left sinus of Valsalva, gave rise to the left anterior descending and left circumflex arteries and did not show any significant stenosis. b. The left anterior descending artery did not show any significant stenosis. c. The left circumflex artery did not show any significant stenosis. d. The right coronary artery was a large and dominant vessel arising from the right sinus of Valsalva that did not show any significant stenosis. Conclusion No significant coronary artery disease Recommendations Cardiovascular risk factor modification Signed by : Elie Graham, Mitral Valve MV E Velocity 120.3cm/s MV E Peak Gr. 7mmHg MV DECEL TIME 198ms MV A Velocity 58.3cm/s MV E Mean Gr. 2mmHg E/A Ratio 2.1 Pulmonary Valve PV Peak Velocity 102.5cm/s LEFT VENTRICLE The left ventricle is normal size. Proximal septal thickening is noted. Left ventricle systolic function is low normal. The Ejection Fraction is 50-55%. There is normal LV segmental wall motion. Transmitral Doppler flow pattern is Grade II-pseudonormal filling dynamics. RIGHT VENTRICLE The right ventricle is normal size. There is normal right ventricular wall thickness. The right ventricular systolic function is normal. ATRIA The left atrium is mildly dilated. The right atrium size is normal. The interatrial septum is intact with no evidence for an atrial septal defect or patent foramen ovale as noted on 2-D or Doppler imaging. AORTIC VALVE The aortic valve is normal in structure and function. The aortic valve is trileaflet. Doppler and Color Flow revealed mild to moderate aortic regurgitation. There is no significant aortic valvular stenosis. There is no aortic valvular vegetation. MITRAL VALVE The mitral valve is normal in structure and function. There is no evidence of mitral valve prolapse. There is no mitral valve stenosis. Doppler and Color-flow revealed trace mitral regurgitation. TRICUSPID VALVE The tricuspid valve is normal in structure and function. Doppler and Color Flow revealed no tricuspid valve regurgitation noted. There is no tricuspid valve prolapse or vegetation. There is no tricuspid valve stenosis. PULMONIC VALVE The pulmonary valve is normal in structure and function. Doppler and Color Flow revealed trace pulmonic valvular regurgitation. There is no pulmonic valvular stenosis. GREAT VESSELS The aortic root is normal in size. The ascending aorta is normal in size. The IVC was not visualized. PERICARDIAL EFFUSION There is no evidence of significant pericardial effusion. Critical Notification Critical Value: No <Conclusion> Left ventricle systolic function is low normal. The Ejection Fraction is 50-55%. There is normal LV segmental wall motion. Doppler and Color Flow revealed mild to moderate aortic regurgitation. Signed by : Donis Hernandez, Electronically Approved : 01/12/2019 16:34:54 Laboratory Tests Test 01/12/19 09:50 01/13/19 03:30 White Blood Count 14.6 x10^3/uL (4.0-11.0) 15.0 x10^3/uL (4.0-11.0) Red Blood Count 4.22 x10^6/uL (3.50-5.40) 4.47 x10^6/uL (3.50-5.40) Hemoglobin 13.7 g/dL (12.0-15.5) 14.9 g/dL (12.0-15.5) Hematocrit 41.9 % (36.0-47.0) 44.1 % (36.0-47.0) Mean Corpuscular Volume 99 fL (79-100) 99 fL (79-100) Mean Corpuscular Hemoglobin 33 pg (25-35) 33 pg (25-35) Mean Corpuscular Hemoglobin Concent 33 g/dL (31-37) 34 g/dL (31-37) Red Cell Distribution Width 13.4 % (11.5-14.5) 13.7 % (11.5-14.5) Platelet Count 298 x10^3/uL (140-400) 326 x10^3/uL (140-400) Neutrophils (%) (Auto) 68 % (31-73) 62 % (31-73) Lymphocytes (%) (Auto) 25 % (24-48) 30 % (24-48) Monocytes (%) (Auto) 7 % (0-9) 7 % (0-9) Eosinophils (%) (Auto) 0 % (0-3) 1 % (0-3) Basophils (%) (Auto) 0 % (0-3) 0 % (0-3) Neutrophils # (Auto) 9.9 x10^3uL (1.8-7.7) 9.3 x10^3uL (1.8-7.7) Lymphocytes # (Auto) 3.6 x10^3/uL (1.0-4.8) 4.5 x10^3/uL (1.0-4.8) Monocytes # (Auto) 1.0 x10^3/uL (0.0-1.1) 1.0 x10^3/uL (0.0-1.1) Eosinophils # (Auto) 0.1 x10^3/uL (0.0-0.7) 0.1 x10^3/uL (0.0-0.7) Basophils # (Auto) 0.0 x10^3/uL (0.0-0.2) 0.1 x10^3/uL (0.0-0.2) Sodium Level 138 mmol/L (136-145) 135 mmol/L (136-145) Potassium Level 2.9 mmol/L (3.5-5.1) 3.1 mmol/L (3.5-5.1) Chloride Level 101 mmol/L (98-107) 98 mmol/L (98-107) Carbon Dioxide Level 24 mmol/L (21-32) 23 mmol/L (21-32) Anion Gap 13 (6-14) 14 (6-14) Blood Urea Nitrogen 7 mg/dL (7-20) 8 mg/dL (7-20) Creatinine 0.8 mg/dL (0.6-1.0) 0.9 mg/dL (0.6-1.0) Estimated GFR (Cockcroft-Gault) 98.8 86.2 BUN/Creatinine Ratio 9 (6-20) 9 (6-20) Glucose Level 127 mg/dL (70-99) 111 mg/dL (70-99) Calcium Level 9.6 mg/dL (8.5-10.1) 9.7 mg/dL (8.5-10.1) Magnesium Level 2.0 mg/dL (1.8-2.4) Total Bilirubin 0.6 mg/dL (0.2-1.0) 0.7 mg/dL (0.2-1.0) Aspartate Amino Transf (AST/SGOT) 14 U/L (15-37) 16 U/L (15-37) Alanine Aminotransferase (ALT/SGPT) 21 U/L (14-59) 22 U/L (14-59) Alkaline Phosphatase 71 U/L (46-116) 73 U/L (46-116) Troponin I Quantitative < 0.017 ng/mL (0.000-0.055) Total Protein 7.7 g/dL (6.4-8.2) 7.9 g/dL (6.4-8.2) Albumin 4.0 g/dL (3.4-5.0) 4.0 g/dL (3.4-5.0) Albumin/Globulin Ratio 1.1 (1.0-1.7) 1.0 (1.0-1.7) Triglycerides Level 33 mg/dL (0-150) Cholesterol Level 174 mg/dL (0-200) LDL Cholesterol, Calculated 108 mg/dL (0-100) VLDL Cholesterol, Calculated 7 mg/dL (0-40) Non-HDL Cholesterol Calculated 115 mg/dL (0-129) HDL Cholesterol 59 mg/dL (40-60) Cholesterol/HDL Ratio 2.9 Assessment and Plan Assessmemt and Plan Problems Medical Problems: (1) Cyclical vomiting Status: Acute (2) Marijuana abuse Status: Acute Comment Review of Relevant I have reviewed the following items hany (where applicable) has been applied. Labs Laboratory Tests Test 01/11/19 11:45 01/11/19 12:02 01/11/19 12:07 01/11/19 12:14 White Blood Count 13.7 x10^3/uL (4.0-11.0) Red Blood Count 4.19 x10^6/uL (3.50-5.40) Hemoglobin 13.8 g/dL (12.0-15.5) Hematocrit 42.3 % (36.0-47.0) Mean Corpuscular Volume 101 fL (79-100) Mean Corpuscular Hemoglobin 33 pg (25-35) Mean Corpuscular Hemoglobin Concent 33 g/dL (31-37) Red Cell Distribution Width 14.2 % (11.5-14.5) Platelet Count 224 x10^3/uL (140-400) Neutrophils (%) (Auto) 67 % (31-73) Lymphocytes (%) (Auto) 27 % (24-48) Monocytes (%) (Auto) 4 % (0-9) Eosinophils (%) (Auto) 1 % (0-3) Basophils (%) (Auto) 1 % (0-3) Neutrophils # (Auto) 9.2 x10^3uL (1.8-7.7) Lymphocytes # (Auto) 3.7 x10^3/uL (1.0-4.8) Monocytes # (Auto) 0.6 x10^3/uL (0.0-1.1) Eosinophils # (Auto) 0.2 x10^3/uL (0.0-0.7) Basophils # (Auto) 0.1 x10^3/uL (0.0-0.2) Urine Collection Type Unknown Urine Color Yellow Urine Clarity Clear Urine pH 6.5 Urine Specific [place] 1.020 Urine Protein Negative mg/dL (NEG-TRACE) Urine Glucose (UA) Negative mg/dL (NEG) Urine Ketones (Stick) Negative mg/dL (NEG) Urine Blood Negative (NEG) Urine Nitrite Negative (NEG) Urine Bilirubin Negative (NEG) Urine Urobilinogen Dipstick 0.2 mg/dL (0.2 mg/dL) Urine Leukocyte Esterase Moderate (NEG) Urine RBC 0 /HPF (0-2) Urine WBC 5-10 /HPF (0-4) Urine Squamous Epithelial Cells Mod /LPF Urine Bacteria Mod /HPF (0-FEW) Urine Mucus Marked /LPF Urine Opiates Screen Neg (NEG) Urine Methadone Screen Neg (NEG) Urine Barbiturates Neg (NEG) Urine Phencyclidine Screen Neg (NEG) Urine Amphetamine/Methamphetamine Neg (NEG) Urine Benzodiazepines Screen Neg (NEG) Urine Cocaine Screen Neg (NEG) Urine Cannabinoids Screen Pos (NEG) Urine Ethyl Alcohol Neg (NEG) Bedside Urine HCG, Qualitative Hcg negative (Negative) Ethyl Alcohol Level < 10 mg/dL (0-10) Test 01/11/19 14:25 01/12/19 09:50 01/13/19 03:30 Sodium Level 141 mmol/L (136-145) 138 mmol/L (136-145) 135 mmol/L (136-145) Potassium Level 3.6 mmol/L (3.5-5.1) 2.9 mmol/L (3.5-5.1) 3.1 mmol/L (3.5-5.1) Chloride Level 103 mmol/L (98-107) 101 mmol/L (98-107) 98 mmol/L (98-107) Carbon Dioxide Level 24 mmol/L (21-32) 24 mmol/L (21-32) 23 mmol/L (21-32) Anion Gap 14 (6-14) 13 (6-14) 14 (6-14) Blood Urea Nitrogen 6 mg/dL (7-20) 7 mg/dL (7-20) 8 mg/dL (7-20) Creatinine 0.7 mg/dL (0.6-1.0) 0.8 mg/dL (0.6-1.0) 0.9 mg/dL (0.6-1.0) Estimated GFR (Cockcroft-Gault) 115.2 98.8 86.2 BUN/Creatinine Ratio 9 (6-20) 9 (6-20) 9 (6-20) Glucose Level 102 mg/dL (70-99) 127 mg/dL (70-99) 111 mg/dL (70-99) Calcium Level 9.6 mg/dL (8.5-10.1) 9.6 mg/dL (8.5-10.1) 9.7 mg/dL (8.5-10.1) Total Bilirubin 0.5 mg/dL (0.2-1.0) 0.6 mg/dL (0.2-1.0) 0.7 mg/dL (0.2-1.0) Aspartate Amino Transf (AST/SGOT) 18 U/L (15-37) 14 U/L (15-37) 16 U/L (15-37) Alanine Aminotransferase (ALT/SGPT) 23 U/L (14-59) 21 U/L (14-59) 22 U/L (14-59) Alkaline Phosphatase 76 U/L (46-116) 71 U/L (46-116) 73 U/L (46-116) Total Protein 8.3 g/dL (6.4-8.2) 7.7 g/dL (6.4-8.2) 7.9 g/dL (6.4-8.2) Albumin 4.3 g/dL (3.4-5.0) 4.0 g/dL (3.4-5.0) 4.0 g/dL (3.4-5.0) Albumin/Globulin Ratio 1.1 (1.0-1.7) 1.1 (1.0-1.7) 1.0 (1.0-1.7) Lipase 153 U/L (73-393) White Blood Count 14.6 x10^3/uL (4.0-11.0) 15.0 x10^3/uL (4.0-11.0) Red Blood Count 4.22 x10^6/uL (3.50-5.40) 4.47 x10^6/uL (3.50-5.40) Hemoglobin 13.7 g/dL (12.0-15.5) 14.9 g/dL (12.0-15.5) Hematocrit 41.9 % (36.0-47.0) 44.1 % (36.0-47.0) Mean Corpuscular Volume 99 fL (79-100) 99 fL (79-100) Mean Corpuscular Hemoglobin 33 pg (25-35) 33 pg (25-35) Mean Corpuscular Hemoglobin Concent 33 g/dL (31-37) 34 g/dL (31-37) Red Cell Distribution Width 13.4 % (11.5-14.5) 13.7 % (11.5-14.5) Platelet Count 298 x10^3/uL (140-400) 326 x10^3/uL (140-400) Neutrophils (%) (Auto) 68 % (31-73) 62 % (31-73) Lymphocytes (%) (Auto) 25 % (24-48) 30 % (24-48) Monocytes (%) (Auto) 7 % (0-9) 7 % (0-9) Eosinophils (%) (Auto) 0 % (0-3) 1 % (0-3) Basophils (%) (Auto) 0 % (0-3) 0 % (0-3) Neutrophils # (Auto) 9.9 x10^3uL (1.8-7.7) 9.3 x10^3uL (1.8-7.7) Lymphocytes # (Auto) 3.6 x10^3/uL (1.0-4.8) 4.5 x10^3/uL (1.0-4.8) Monocytes # (Auto) 1.0 x10^3/uL (0.0-1.1) 1.0 x10^3/uL (0.0-1.1) Eosinophils # (Auto) 0.1 x10^3/uL (0.0-0.7) 0.1 x10^3/uL (0.0-0.7) Basophils # (Auto) 0.0 x10^3/uL (0.0-0.2) 0.1 x10^3/uL (0.0-0.2) Magnesium Level 2.0 mg/dL (1.8-2.4) Troponin I Quantitative < 0.017 ng/mL (0.000-0.055) Triglycerides Level 33 mg/dL (0-150) Cholesterol Level 174 mg/dL (0-200) LDL Cholesterol, Calculated 108 mg/dL (0-100) VLDL Cholesterol, Calculated 7 mg/dL (0-40) Non-HDL Cholesterol Calculated 115 mg/dL (0-129) HDL Cholesterol 59 mg/dL (40-60) Cholesterol/HDL Ratio 2.9 Laboratory Tests Test 01/12/19 09:50 01/13/19 03:30 White Blood Count 14.6 x10^3/uL (4.0-11.0) 15.0 x10^3/uL (4.0-11.0) Red Blood Count 4.22 x10^6/uL (3.50-5.40) 4.47 x10^6/uL (3.50-5.40) Hemoglobin 13.7 g/dL (12.0-15.5) 14.9 g/dL (12.0-15.5) Hematocrit 41.9 % (36.0-47.0) 44.1 % (36.0-47.0) Mean Corpuscular Volume 99 fL (79-100) 99 fL (79-100) Mean Corpuscular Hemoglobin 33 pg (25-35) 33 pg (25-35) Mean Corpuscular Hemoglobin Concent 33 g/dL (31-37) 34 g/dL (31-37) Red Cell Distribution Width 13.4 % (11.5-14.5) 13.7 % (11.5-14.5) Platelet Count 298 x10^3/uL (140-400) 326 x10^3/uL (140-400) Neutrophils (%) (Auto) 68 % (31-73) 62 % (31-73) Lymphocytes (%) (Auto) 25 % (24-48) 30 % (24-48) Monocytes (%) (Auto) 7 % (0-9) 7 % (0-9) Eosinophils (%) (Auto) 0 % (0-3) 1 % (0-3) Basophils (%) (Auto) 0 % (0-3) 0 % (0-3) Neutrophils # (Auto) 9.9 x10^3uL (1.8-7.7) 9.3 x10^3uL (1.8-7.7) Lymphocytes # (Auto) 3.6 x10^3/uL (1.0-4.8) 4.5 x10^3/uL (1.0-4.8) Monocytes # (Auto) 1.0 x10^3/uL (0.0-1.1) 1.0 x10^3/uL (0.0-1.1) Eosinophils # (Auto) 0.1 x10^3/uL (0.0-0.7) 0.1 x10^3/uL (0.0-0.7) Basophils # (Auto) 0.0 x10^3/uL (0.0-0.2) 0.1 x10^3/uL (0.0-0.2) Sodium Level 138 mmol/L (136-145) 135 mmol/L (136-145) Potassium Level 2.9 mmol/L (3.5-5.1) 3.1 mmol/L (3.5-5.1) Chloride Level 101 mmol/L (98-107) 98 mmol/L (98-107) Carbon Dioxide Level 24 mmol/L (21-32) 23 mmol/L (21-32) Anion Gap 13 (6-14) 14 (6-14) Blood Urea Nitrogen 7 mg/dL (7-20) 8 mg/dL (7-20) Creatinine 0.8 mg/dL (0.6-1.0) 0.9 mg/dL (0.6-1.0) Estimated GFR (Cockcroft-Gault) 98.8 86.2 BUN/Creatinine Ratio 9 (6-20) 9 (6-20) Glucose Level 127 mg/dL (70-99) 111 mg/dL (70-99) Calcium Level 9.6 mg/dL (8.5-10.1) 9.7 mg/dL (8.5-10.1) Magnesium Level 2.0 mg/dL (1.8-2.4) Total Bilirubin 0.6 mg/dL (0.2-1.0) 0.7 mg/dL (0.2-1.0) Aspartate Amino Transf (AST/SGOT) 14 U/L (15-37) 16 U/L (15-37) Alanine Aminotransferase (ALT/SGPT) 21 U/L (14-59) 22 U/L (14-59) Alkaline Phosphatase 71 U/L (46-116) 73 U/L (46-116) Troponin I Quantitative < 0.017 ng/mL (0.000-0.055) Total Protein 7.7 g/dL (6.4-8.2) 7.9 g/dL (6.4-8.2) Albumin 4.0 g/dL (3.4-5.0) 4.0 g/dL (3.4-5.0) Albumin/Globulin Ratio 1.1 (1.0-1.7) 1.0 (1.0-1.7) Triglycerides Level 33 mg/dL (0-150) Cholesterol Level 174 mg/dL (0-200) LDL Cholesterol, Calculated 108 mg/dL (0-100) VLDL Cholesterol, Calculated 7 mg/dL (0-40) Non-HDL Cholesterol Calculated 115 mg/dL (0-129) HDL Cholesterol 59 mg/dL (40-60) Cholesterol/HDL Ratio 2.9 Medications Current Medications Metoclopramide HCl (Reglan Vial) 10 mg 1X ONCE IV ; Start 01/11/19 at 11:00; Stop 01/11/19 at 11:03; Status DC Diphenhydramine HCl (Benadryl) 50 mg 1X ONCE IVP ; Start 01/11/19 at 11:00; Stop 01/11/19 at 11:03; Status DC Fentanyl Citrate (Fentanyl 2ml Vial) 50 mcg 1X ONCE IV ; Start 01/11/19 at 11:00; Stop 01/11/19 at 11:03; Status DC Diphenhydramine HCl (Benadryl) 50 mg 1X ONCE IM Last administered on 01/11/19at 11:23; Start 01/11/19 at 11:00; Stop 01/11/19 at 11:07; Status DC Metoclopramide HCl (Reglan Vial) 10 mg 1X ONCE IM ; Start 01/11/19 at 11:00; Stop 01/11/19 at 11:08; Status DC Ondansetron HCl (Zofran) 4 mg 1X ONCE IM Last administered on 01/11/19at 11:23; Start 01/11/19 at 11:15; Stop 01/11/19 at 11:16; Status DC Lorazepam (Ativan) 2 mg 1X ONCE IM Last administered on 01/11/19at 12:30; Start 01/11/19 at 12:15; Stop 01/11/19 at 12:19; Status DC Pantoprazole Sodium (Protonix) 40 mg 1X ONCE PO Last administered on 01/11/19at 12:30; Start 01/11/19 at 12:15; Stop 01/11/19 at 12:19; Status DC Ondansetron HCl (Zofran) 4 mg 1X ONCE IM Last administered on 01/11/19at 12:30; Start 01/11/19 at 12:15; Stop 01/11/19 at 12:19; Status DC Ceftriaxone Sodium (Rocephin Im) 1 gm 1X ONCE IM Last administered on 01/11/19at 14:04; Start 01/11/19 at 13:45; Stop 01/11/19 at 13:46; Status DC Ondansetron HCl (Zofran) 4 mg PRN Q8HRS PRN IV NAUSEA/VOMITING; Start 01/11/19 at 13:45; Stop 01/11/19 at 13:56; Status DC Acetaminophen (Tylenol) 650 mg PRN Q4HRS PRN PO FEVER; Start 01/11/19 at 13:45; Stop 01/12/19 at 13:44; Status DC Ondansetron HCl (Zofran) 4 mg PRN Q8HRS PRN IM NAUSEA/VOMITING Last administered on 01/12/19 08:42; Start 01/11/19 at 14:00 Fentanyl Citrate (Fentanyl 2ml Vial) 75 mcg PRN Q4HRS PRN IM PAIN Last administered on 01/12/19 14:20; Start 01/11/19 at 18:30 Lorazepam (Ativan) 2 mg PRN Q4HRS PRN IM ANXIETY / AGITATION Last administered on 01/12/19 08:46; Start 01/11/19 at 18:30 Haloperidol Lactate (Haldol Inj) 5 mg PRN Q8HRS PRN IM ANXIETY / AGITATION Last administered on 01/11/19 19:46; Start 01/11/19 at 18:30 Clonidine HCl (Catapres Tts-1) 1 patch WEEKLY TD ; Start 01/15/19 at 09:00 Dicyclomine HCl (Bentyl) 20 mg QID PO Last administered on 01/13/19 08:17; Start 01/12/19 at 09:00 Gabapentin (Neurontin) 300 mg DAILY PO Last administered on 01/13/19 08:17; Start 01/12/19 at 09:00 Hydrochlorothiazide (Microzide) 12.5 mg DAILY PO Last administered on 01/13/19 08:15; Start 01/12/19 at 09:00 Lisinopril (Prinivil) 40 mg DAILY PO Last administered on 01/13/19 08:16; Start 01/12/19 at 09:00 Pantoprazole Sodium (Protonix) 40 mg DAILYAC PO ; Start 01/12/19 at 08:00; Stop 01/12/19 at 13:11; Status DC Promethazine HCl (Phenergan) 25 mg PRN Q4HRS PRN PO NAUSEA/VOMITING Last administered on 01/13/19 03:45; Start 01/12/19 at 08:00 Ceftriaxone Sodium (Rocephin) 1 gm Q24H IVP Last administered on 01/12/19 15:27; Start 01/12/19 at 14:00 Aspirin (Ecotrin) 325 mg 1X ONCE PO Last administered on 01/12/19 13:51; Start 01/12/19 at 12:45; Stop 01/12/19 at 12:50; Status DC Hydralazine HCl (Apresoline Inj) 10 mg PRN Q4HRS PRN IVP ELEVATED BP, SEE COMMENTS Last administered on 01/13/19at 03:45; Start 01/12/19 at 12:45 Famotidine (Pepcid Vial) 20 mg BID IVP Last administered on 01/13/19at 08:15; Start 01/12/19 at 21:00 Hydralazine HCl (Apresoline Inj) 10 mg 1X ONCE IVP ; Start 01/12/19 at 13:30; Stop 01/12/19 at 13:31; Status DC Potassium Chloride (Klor-Con) 40 meq 1X ONCE PO ; Start 01/12/19 at 13:30; S top 01/12/19 at 13:31; Status DC Potassium Chloride (Klor-Con) 40 meq 1X ONCE PO Last administered on 01/12/19at 13:50; Start 01/12/19 at 13:30; Stop 01/12/19 at 13:32; Status DC Amlodipine Besylate (Norvasc) 10 mg 1X ONCE PO Last administered on 01/12/19at 13:50; Start 01/12/19 at 13:45; Stop 01/12/19 at 13:46; Status DC Atorvastatin Calcium (Lipitor) 20 mg QHS PO Last administered on 01/12/19at 20:40; Start 01/12/19 at 21:00 Lidocaine HCl (Xylocaine-Mpf 1% 2ml Vial) 2 ml STK-MED ONCE .ROUTE ; Start at 14:01; Stop 01/12/19 at 14:02; Status DC Iohexol (Omnipaque 300 Mg/ml) 100 ml STK-MED ONCE .ROUTE ; Start 01/12/19 at 14:01; Stop 01/12/19 at 14:02; Status DC Heparin Sodium/ Sodium Chloride 500 ml @ As Directed STK-MED ONCE .ROUTE ; Start 01/12/19 at 14:01; Stop 01/12/19 at 14:02; Status DC Midazolam HCl (Versed) 5 mg STK-MED ONCE .ROUTE ; Start 01/12/19 at 14:31; Stop 01/12/19 at 14:32; Status DC Fentanyl Citrate (Fentanyl 2ml Vial) 100 mcg STK-MED ONCE .ROUTE ; Start 01/12/19 at 14:31; Stop 01/12/19 at 14:32; Status DC Verapamil HCl (Verapamil) 5 mg STK-MED ONCE .ROUTE ; Start 01/12/19 at 14:31; Stop 01/12/19 at 14:32; Status DC Heparin Sodium (Porcine) (Heparin Sodium) 10,000 unit STK-MED ONCE .ROUTE ; Start 01/12/19 at 14:31; Stop 01/12/19 at 14:32; Status DC Nitroglycerin (Nitroglycerin) 200 mcg STK-MED ONCE .ROUTE ; Start 01/12/19 at 14:31; Stop 01/12/19 at 14:32; Status DC Hydralazine HCl (Apresoline Inj) 20 mg STK-MED ONCE .ROUTE ; Start 01/12/19 at 14:45; Stop 01/12/19 at 14:46; Status DC Nitroglycerin (Nitroglycerin) 200 mcg 1X ONCE IART Last administered on 01/12/19at 15:09; Start 01/12/19 at 15:00; Stop 01/12/19 at 15:01; Status DC Verapamil HCl (Verapamil) 2.5 mg 1X ONCE IART Last administered on 01/12/19at 15:08; Start 01/12/19 at 15:00; Stop 01/12/19 at 15:01; Status DC Heparin Sodium (Porcine) (Heparin Sodium) 2,500 unit 1X ONCE IART Last admi nistered on 01/12/19at 15:09; Start 01/12/19 at 15:00; Stop 01/12/19 at 15:01; Status DC Heparin Sodium/ Sodium Chloride (HEPARIN for ARTERIAL LINE FLUSH) 1,000 unit 1X ONCE IART Last administered on 01/12/19at 15:06; Start 01/12/19 at 15:00; Stop 01/12/19 at 15:01; Status DC Midazolam HCl (Versed) 3 mg 1X ONCE IV Last administered on 01/12/19at 15:07; Start 01/12/19 at 15:00; Stop 01/12/19 at 15:01; Status DC Fentanyl Citrate (Fentanyl 2ml Vial) 25 mcg 1X ONCE IV Last administered on 01/12/19at 15:09; Start 01/12/19 at 15:00; Stop 01/12/19 at 15:01; Status DC Iohexol (Omnipaque 300 Mg/ml) 48 ml 1X ONCE IART Last administered on 01/12/19at 15:06; Start 01/12/19 at 15:00; Stop 01/12/19 at 15:01; Status DC Hydralazine HCl (Apresoline Inj) 10 mg 1X ONCE IVP Last administered on 01/12/19at 15:07; Start 01/12/19 at 15:00; Stop 01/12/19 at 15:01; Status DC Lidocaine HCl (Xylocaine-Mpf 1% 2ml Vial) 1 ml 1X ONCE INJ Last administered on 01/12/19at 15:09; Start 01/12/19 at 15:00; Stop 01/12/19 at 15:01; Status DC Info (CONTRAST GIVEN -- Rx MONITORING) 1 each PRN DAILY PRN MC SEE COMMENTS; Start 01/12/19 at 15:00; Stop 01/14/19 at 14:59 Sodium Chloride 1,000 ml @ 60 mls/hr [id number] IV ; Start 01/12/19 at 14:54 Lorazepam (Ativan) 2 mg PRN Q4HRS PRN IV ANXIETY / AGITATION Last administered on 01/13/19at 02:36; Start 01/12/19 at 15:45 Haloperidol Lactate (Haldol Inj) 5 mg PRN Q8HRS PRN IVP AGITATION Last administered on 01/13/19at 04:17; Start 01/12/19 at 15:45 Fentanyl Citrate (Fentanyl 2ml Vial) 50 mcg PRN Q2HR PRN IV PAIN Last administered on 01/13/19at 07:06; Start 01/12/19 at 17:30 Active Scripts Active Reported Promethazine Hcl 25 Mg Tablet 25 Mg PO PRN Q4HRS PRN Hydrochlorothiazide Tablet (Hydrochlorothiazide) 12.5 Mg Tablet 12.5 Mg PO DAILY Lisinopril 40 Mg Tablet 40 Mg PO DAILY Gabapentin 300 Mg Capsule 300 Mg PO DAILY Clonidine Tts-1 (Clonidine) 1 Each Patch.tdwk 0.1 Mg TD WEEKLY Dicyclomine Hcl 20 Mg Tablet 20 Mg PO QID Omeprazole 40 Mg Capsule.dr 40 Mg PO DAILY Vitals/I & O Vital Sign - Last 24 Hours 01/12/19 01/12/19 01/12/19 01/12/19 09:54 11:00 13:50 15:09 Temp 97.3 97.3 Pulse 105 83 83 Resp 18 15 B/P (MAP) 158/105 175/103 (127) 175/103 Pulse Ox 99 96 O2 Delivery Room Air Nasal Cannula O2 Flow Rate 2.0 01/12/19 01/12/19 01/12/19 01/12/19 15:11 15:15 15:17 15:24 Temp 99.2 99.2 Pulse 54 78 69 Resp 15 28 B/P (MAP) 208/131 (156) 208/131 Pulse Ox 96 100 96 O2 Delivery Nasal Cannula Room Air Room Air O2 Flow Rate 2.0 01/12/19 01/12/19 01/12/19 01/12/19 15:30 15:45 15:48 16:00 Pulse 74 82 126 B/P (MAP) 200/114 (142) 176/106 (129) 184/117 (139) Pulse Ox 99 99 96 98 O2 Delivery Room Air Room Air Room Air Room Air 01/12/19 01/12/19 01/12/19 01/12/19 16:15 16:45 17:15 17:37 Pulse 82 128 90 B/P (MAP) 176/106 (129) 166/114 (131) 148/96 (113) Pulse Ox 99 98 98 96 O2 Delivery Room Air Room Air Room Air Room Air 01/12/19 01/12/19 01/12/19 01/12/19 18:13 18:15 19:18 19:20 Temp 98.5 98.5 Pulse 114 92 Resp 18 B/P (MAP) 159/95 (116) 118/68 (85) Pulse Ox 96 98 97 O2 Delivery Room Air Room Air Room Air 01/12/19 01/12/19 01/12/19 01/12/19 20:20 21:20 22:20 23:10 Temp 98.0 98.0 Pulse 96 104 96 96 Resp 18 20 20 16 B/P (MAP) 113/67 (82) 118/72 (87) 115/69 (84) 115/69 (84) Pulse Ox 96 96 97 97 O2 Delivery Room Air Room Air Room Air Room Air 01/13/19 01/13/19 01/13/19 01/13/19 03:05 03:44 03:45 04:14 Temp 98.9 98.9 Pulse 81 80 Resp 16 20 20 B/P (MAP) 190/113 (138) 165/120 Pulse Ox 100 O2 Delivery Room Air 01/13/19 01/13/19 01/13/19 01/13/19 07:00 07:06 07:35 08:16 Temp 98.1 98.1 Pulse 90 105 Resp 18 B/P (MAP) 157/115 (129) 157/115 Pulse Ox 97 O2 Delivery Room Air Room Air Room Air Intake and Output 01/12/19 01/12/19 01/13/19 14:59 22:59 06:59 Intake Total 228 ml 240 ml 440 ml Balance 228 ml 240 ml 440 ml REYNA HENRIQUEZ MD January 13, 2019 08:44
[2019-01-13] MEDS ORDERED: ONDANSETRON PF 4 MG/2 ML VIAL. IV PRN (09:15)
[2019-01-13] MEDS ORDERED: MAG HYDROX/ALUMINUM HYD/SIMETH 30 ML ORAL.SUSP PO PRN (09:15)
[2019-01-13] MEDS ORDERED: guaiFENesin ORAL 200 MG/10 ML LIQUID. PO PRN (09:15)
[2019-01-13] MEDS ORDERED: ZOLPIDEM 5 MG TABLET. PO PRN (09:15)
[2019-01-13] MEDS ORDERED: ACETAMINOPHEN 650 MG/20.3 ML SOLUTION. GT PRN (09:15)
[2019-01-13] MEDS ORDERED: DOCUSATE SODIUM 100 MG CAPSULE. PO PRN (09:15)
[2019-01-13] MEDS ORDERED: cloNIDine HCL 0.1 MG TABLET PO PRN (09:15)
[2019-01-13] MEDS ORDERED: LORazepam 0.5 MG TABLET PO PRN ×2 (09:15→17:45)
[2019-01-13] MEDS ORDERED: ACETAMINOPHEN 325 MG TABLET. PO PRN (09:15)
[2019-01-13] MEDS ORDERED: POTASSIUM CHLORIDE 20 MEQ TABLET.ER. PO ONE ×2 (09:30→12:00)
[2019-01-13] MEDS ORDERED: POTASSIUM CHLORIDE 10MEQ 100 ML IV SCH (09:30)
[2019-01-13] MEDS: amLODIPine BESYLATE 10 MG TABLET PO SCH (09:34)
[2019-01-13] MEDS: ENOXAPARIN 40 MG/0.4 ML SYRINGE. SQ SCH (09:35)
[2019-01-13] MEDS ORDERED: IV NORMAL SALINE 1000ML BAG 1,000 ML IV SCH (10:00)
[2019-01-13] MEDS: IPRATRPIUM/ALBUTEROL 0.5/2.5MG 3 ML NEBU. NEB SCH ×4 (10:00→22:00)
--- NOTE | 2019-01-13 10:35 | NUR ---
FACULTY CO-SIGN I have reviewed the documentation by Lynda Santos skilled nursing facilities professional, [facility]: Addendum: 01/13/19 at 1036 by HARISH FINK RN Amended: Links added.
--- NOTE | 2019-01-13 11:10 | NUR ---
PATIENT YELLING AT THIS RN THAT SHE WANTS TO LEAVE AMA AND WANTS TO SPEAK TO SOMEONE "HIGHER" THAN THIS RN IN REGARDS TO GETTING A PHYSICIANS NOTE FOR WORK EVEN THOUGH PATIENT WANTS TO LEAVE AMA. DR HENRIQUEZ CALLED. NAMRATA DURHMA WENT TO PATIENT TO TRY TO CALM PATIENT DOWN. PATIENT YELLING AT NAMRATA DURHAM. SECURITY CALLED AT THIS TIME.
--- NOTE | 2019-01-13 11:15 | NUR ---
PATIENT STATING SHE WANTS TO LEAVE. PATIENT INFORMED WE HAVE TO GIVE HER ANOTHER DOSE OF POTASSIUM AND RE-CHECK HER POTASSIUM LEVELS BEFORE DISCHARGING. PATIENT DOESNT WANT TO WAIT AND WANTS TO LEAVE AMA. THIS RN SPOKE WITH PATIENTS MOTHER WHO SPOKE WITH PATIENT ABOUT STAYING IN HOSPITAL UNTIL POTASSIUM LEVELS ARE DRAWN. PATIENT REQUESTING ATIVAN TO HELP CALM HER DOWN. WILL CONTINUE TO MONITOR PATIENT.
--- NOTE | 2019-01-13 12:07 | PDOC3 ---
Discharge Summary Date of Admission: January 11, 2019 Date of Discharge: January 13, 2019 Follow-Up: 3-5 days Admitting Diagnosis comment: DISCHARGE DX Assessment/Plan Severe abdominal pain nausea vomiting with some mild leukocytosis Regadenoson cardioisotope stress test showed small amount of anterior wall ischemia with transient ischemic dilatation. Consider cardiac catheterization. Mild left ventricle systolic dysfunction with ejection fraction calculated at 46%. IN 2018 mild to moderate aortic regurgitation. hypokalemia HYPERTENSION THC ABUSE Plan Consult GI IM Ativan IMHaldol IM fentanyl iv k I M Rocephin IV fluids resume her home meds DVT prophylaxis Full code IN 2018 Regadenoson cardioisotope stress test showed small amount of anterior wall ischemia with transient ischemic dilatation. Consider cardiac catheterization. Mild left ventricle systolic dysfunction with ejection fraction calculated at 46%. 37 MIN PT EXAM, CHART REVIEW D/C PLANNING, > 50% OF TIME SPENT WITH EXAM.,chart review, pt care coordination Vitals Vitals Vital Signs Date Time Temp Pulse Resp B/P (MAP) Pulse Ox O2 Delivery O2 Flow Rate FiO2 01/13/19 08:16 105 157/115 01/13/19 07:35 Room Air 01/13/19 07:00 98.1 18 97 98.1 01/12/19 15:11 2.0 Physical Exam Physical Exam SKIN: No bruising, hair changes or rashes. EYES: No blurred, double or loss of vision. NOSE AND THROAT: No history of nosebleeds, hoarseness or sore throat. HEART: No history of palpitations, chest pain or shortness of breath on exertion. LUNGS: Denies cough, hemoptysis, wheezing or shortness of breath. GASTROINTESTINAL: She complains of severe abdominal pain GENITOURINARY: No history of frequency, urgency, hesitancy or nocturia. NEUROLOGIC: Denies history of numbness, tingling, tremor or weakness. PSYCHIATRIC: No history of panic, anxiety or depression. ENDOCRINE: No history of heat or cold intolerance, polyuria or polydipsia. EXTREMITIES: Denies muscle weakness, joint pain, pain on walking or stiffness. General: Alert, Oriented X3, Cooperative, No acute distress, mild distress Heart: Regular rate, Normal S1, Normal S2, Other (S4 3/6 systolic murmur to apex) Lungs: Clear, Other Abdomen: Normal bowel sounds, Soft, No hepatosplenomegaly, Other (mild tenderness to abd with palpation) Extremities: No cyanosis, No edema Skin: No breakdown, No significant lesion Labs LABS SEX: F EXAM STATUS: ADM IN ORD. PHYSICIAN: REYNA HENRIQUEZ MD REASON: PAIN PROCEDURE: CT ABDOMEN PELVIS WO CONTRAST Examination: CT ABDOMEN PELVIS WO CONTRAST History: Pain Comparison/Correlation: 02/21/2018 CT abdomen and pelvis without contrast Findings: Axial images of the abdomen and pelvis were obtained without contrast. Sagittal and coronal reformatted images were provided. Visualized lung bases are clear. Cholecystectomy noted. Liver, spleen, pancreas, and adrenal glands are unremarkable. No radiopaque collecting system calculi. No extraluminal gas. Appendix is normal. Moderate quantity of stool in the colon noted. No bowel obstruction. No enlarged abdominal or pelvic lymph nodes. Uterus is grossly unremarkable. Left adnexal follicle measuring 2.3 cm diameter is physiologic in appearance. Urinary bladder is unremarkable. Bilateral sacroiliitis noted with vacuum phenomenon. No acute bony process. Impression: No suspicious process. FINAL DIAGNOSIS Problems Medical Problems: (1) Cyclical vomiting Status: Acute (2) Marijuana abuse Status: Acute Brief Hospital Course Ms. Canales is a 33 old [sex] who presented with [INTRACTABLE VOMITING ] CONDITION AT DISCHARGE: Improved Discharge Medications Current Medications Metoclopramide HCl (Reglan Vial) 10 mg 1X ONCE IV ; Start 01/11/19 at 11:00; Stop 01/11/19 at 11:03; Status DC Diphenhydramine HCl (Benadryl) 50 mg 1X ONCE IVP ; Start 01/11/19 at 11:00; Stop 01/11/19 at 11:03; Status DC Fentanyl Citrate (Fentanyl 2ml Vial) 50 mcg 1X ONCE IV ; Start 01/11/19 at 11:00; Stop 01/11/19 at 11:03; Status DC Diphenhydramine HCl (Benadryl) 50 mg 1X ONCE IM Last administered on 01/11/19at 11:23; Start 01/11/19 at 11:00; Stop 01/11/19 at 11:07; Status DC Metoclopramide HCl (Reglan Vial) 10 mg 1X ONCE IM ; Start 01/11/19 at 11:00; Stop 01/11/19 at 11:08; Status DC Ondansetron HCl (Zofran) 4 mg 1X ONCE IM Last administered on 01/11/19 11:23; Start 01/11/19 at 11:15; Stop 01/11/19 at 11:16; Status DC Lorazepam (Ativan) 2 mg 1X ONCE IM Last administered on 01/11/19 12:30; Start 01/11/19 at 12:15; Stop 01/11/19 at 12:19; Status DC Pantoprazole Sodium (Protonix) 40 mg 1X ONCE PO Last administered on 01/11/19 12:30; Start 01/11/19 at 12:15; Stop 01/11/19 at 12:19; Status DC Ondansetron HCl (Zofran) 4 mg 1X ONCE IM Last administered on 01/11/19 12:30; Start 01/11/19 at 12:15; Stop 01/11/19 at 12:19; Status DC Ceftriaxone Sodium (Rocephin Im) 1 gm 1X ONCE IM Last administered on 01/11/19at 14:04; Start 01/11/19 at 13:45; Stop 01/11/19 at 13:46; Status DC Ondansetron HCl (Zofran) 4 mg PRN Q8HRS PRN IV NAUSEA/VOMITING; Start 01/11/19 at 13:45; Stop 01/11/19 at 13:56; Status DC Acetaminophen (Tylenol) 650 mg PRN Q4HRS PRN PO FEVER; Start 01/11/19 at 13:45; Stop 01/12/19 at 13:44; Status DC Ondansetron HCl (Zofran) 4 mg PRN Q8HRS PRN IM NAUSEA/VOMITING Last administered on 01/12/19 08:42; Start 01/11/19 at 14:00 Fentanyl Citrate (Fentanyl 2ml Vial) 75 mcg PRN Q4HRS PRN IM PAIN Last administered on 01/12/19 14:20; Start 01/11/19 at 18:30; Stop 01/13/19 at 09:16; Status DC Lorazepam (Ativan) 2 mg PRN Q4HRS PRN IM ANXIETY / AGITATION Last administered on 01/12/19 08:46; Start 01/11/19 at 18:30 Haloperidol Lactate (Haldol Inj) 5 mg PRN Q8HRS PRN IM ANXIETY / AGITATION Last administered on 01/11/19at 19:46; Start 01/11/19 at 18:30 Clonidine HCl (Catapres Tts-1) 1 patch WEEKLY TD ; Start 01/15/19 at 09:00 Dicyclomine HCl (Bentyl) 20 mg QID PO Last administered on 01/13/19 08:17; Start 01/12/19 at 09:00 Gabapentin (Neurontin) 300 mg DAILY PO Last administered on 01/13/19 08:17; Start 01/12/19 at 09:00 Hydrochlorothiazide (Microzide) 12.5 mg DAILY PO Last administered on 01/13/19 08:15; Start 01/12/19 at 09:00 Lisinopril (Prinivil) 40 mg DAILY PO Last administered on 01/13/19at 08:16; Start 01/12/19 at 09:00 Pantoprazole Sodium (Protonix) 40 mg DAILYAC PO ; Start 01/12/19 at 08:00; Stop 01/12/19 at 13:11; Status DC Promethazine HCl (Phenergan) 25 mg PRN Q4HRS PRN PO NAUSEA/VOMITING Last administered on 01/13/19at 03:45; Start 01/12/19 at 08:00 Ceftriaxone Sodium (Rocephin) 1 gm Q24H IVP Last administered on 01/12/19at 15:27; Start 01/12/19 at 14:00 Aspirin (Ecotrin) 325 mg 1X ONCE PO Last administered on 01/12/19at 13:51; Start 01/12/19 at 12:45; Stop 01/12/19 at 12:50; Status DC Hydralazine HCl (Apresoline Inj) 10 mg PRN Q4HRS PRN IVP ELEVATED BP, SEE COMMENTS Last administered on 01/13/19at 03:45; Start 01/12/19 at 12:45 Famotidine (Pepcid Vial) 20 mg BID IVP Last administered on 01/13/19at 08:15; Start 01/12/19 at 21:00 Hydralazine HCl (Apresoline Inj) 10 mg 1X ONCE IVP ; Start 01/12/19 at 13:30; Stop 01/12/19 at 13:31; Status DC Potassium Chloride (Klor-Con) 40 meq 1X ONCE PO ; Start 01/12/19 at 13:30; Stop 01/12/19 at 13:31; Status DC Potassium Chloride (Klor-Con) 40 meq 1X ONCE PO Last administered on 01/12/19at 13:50; Start 01/12/19 at 13:30; Stop 01/12/19 at 13:32; Status DC Amlodipine Besylate (Norvasc) 10 mg 1X ONCE PO Last administered on 01/12/19at 13:50; Start 01/12/19 at 13:45; Stop 01/12/19 at 13:46; Status DC Atorvastatin Calcium (Lipitor) 20 mg QHS PO Last administered on 01/12/19at 20:40; Start 01/12/19 at 21:00 Lidocaine HCl (Xylocaine-Mpf 1% 2ml Vial) 2 ml STK-MED ONCE .ROUTE ; Start 01/12/19 at 14:01; Stop 01/12/19 at 14:02; Status DC Iohexol (Omnipaque 300 Mg/ml) 100 ml STK-MED ONCE .ROUTE ; Start 01/12/19 at 14:01; Stop 01/12/19 at 14:02; Status DC Heparin Sodium/ Sodium Chloride 500 ml @ As Directed STK-MED ONCE .ROUTE ; Start 01/12/19 at 14:01; Stop 01/12/19 at 14:02; Status DC Midazolam HCl (Versed) 5 mg STK-MED ONCE .ROUTE ; Start 01/12/19 at 14:31; Stop 01/12/19 at 14:32; Status DC Fentanyl Citrate (Fentanyl 2ml Vial) 100 mcg STK-MED ONCE .ROUTE ; Start 01/12/19 at 14:31; Stop 01/12/19 at 14:32; Status DC Verapamil HCl (Verapamil) 5 mg STK-MED ONCE .ROUTE ; Start 01/12/19 at 14:31; Stop 01/12/19 at 14:32; Status DC Heparin Sodium (Porcine) (Heparin Sodium) 10,000 unit STK-MED ONCE .ROUTE ; Start 01/12/19 at 14:31; Stop 01/12/19 at 14:32; Status DC Nitroglycerin (Nitroglycerin) 200 mcg STK-MED ONCE .ROUTE ; Start 01/12/19 at 14:31; Stop 01/12/19 at 14:32; Status DC Hydralazine HCl (Apresoline Inj) 20 mg STK-MED ONCE .ROUTE ; Start 01/12/19 at 14:45; Stop 01/12/19 at 14:46; Status DC Nitroglycerin (Nitroglycerin) 200 mcg 1X ONCE IART Last administered on 01/12/19at 15:09; Start 01/12/19 at 15:00; Stop 01/12/19 at 15:01; Status DC Verapamil HCl (Verapamil) 2.5 mg 1X ONCE IART Last administered on 01/12/19at 15:08; Start 01/12/19 at 15:00; Stop 01/12/19 at 15:01; Status DC Heparin Sodium (Porcine) (Heparin Sodium) 2,500 unit 1X ONCE IART Last administered on 01/12/19at 15:09; Start 01/12/19 at 15:00; Stop 01/12/19 at 15:01; Status DC Heparin Sodium/ Sodium Chloride (HEPARIN for ARTERIAL LINE FLUSH) 1,000 unit 1X ONCE IART Last administered on 01/12/19at 15:06; Start 01/12/19 at 15:00; Stop 01/12/19 at 15:01; Status DC Midazolam HCl (Versed) 3 mg 1X ONCE IV Last administered on 01/12/19 15:07; Start 01/12/19 at 15:00; Stop 01/12/19 at 15:01; Status DC Fentanyl Citrate (Fentanyl 2ml Vial) 25 mcg 1X ONCE IV Last administered on 01/12/19 15:09; Start 01/12/19 at 15:00; Stop 01/12/19 at 15:01; Status DC Iohexol (Omnipaque 300 Mg/ml) 48 ml 1X ONCE IART Last administered on 01/12/19 15:06; Start 01/12/19 at 15:00; Stop 01/12/19 at 15:01; Status DC Hydralazine HCl (Apresoline Inj) 10 mg 1X ONCE IVP Last administered on 01/12/19 15:07; Start 01/12/19 at 15:00; Stop 01/12/19 at 15:01; Status DC Lidocaine HCl (Xylocaine-Mpf 1% 2ml Vial) 1 ml 1X ONCE INJ Last administered on 01/12/19at 15:09; Start 01/12/19 at 15:00; Stop 01/12/19 at 15:01; Status DC Info (CONTRAST GIVEN -- Rx MONITORING) 1 each PRN DAILY PRN MC SEE COMMENTS; Start 01/12/19 at 15:00; Stop 01/14/19 at 14:59 Sodium Chloride 1,000 ml @ 60 mls/hr [id number] IV ; Start 01/12/19 at 14:54 Lorazepam (Ativan) 2 mg PRN Q4HRS PRN IV ANXIETY / AGITATION Last administered on 01/13/19at 11:48; Start 01/12/19 at 15:45 Haloperidol Lactate (Haldol Inj) 5 mg PRN Q8HRS PRN IVP AGITATION Last administered on 01/13/19at 04:17; Start 01/12/19 at 15:45 Fentanyl Citrate (Fentanyl 2ml Vial) 50 mcg PRN Q2HR PRN IV PAIN Last administered on 01/13/19at 07:06; Start 01/12/19 at 17:30; Stop 01/13/19 at 09:16; Status DC Potassium Chloride/Water 100 ml @ 100 mls/hr Q1H IV ; Start 01/13/19 at 09:30; Stop 01/13/19 at 09:30; Status DC Hydrochlorothiazide (Microzide) 12.5 mg DAILY PO ; Start 01/14/19 at 09:00 Amlodipine Besylate (Norvasc) 10 mg DAILY PO Last administered on 01/13/19at 09:34; Start 01/13/19 at 10:00 Sodium Chloride 1,000 ml @ 100 mls/hr Q10H IV ; Start 01/13/19 at 10:00; Stop 01/13/19 at 10:00; Status DC Ondansetron HCl (Zofran) 4 mg PRN Q4HRS PRN IV NAUSEA/VOMITING; Start 01/13/19 at 09:15 Zolpidem Tartrate (Ambien) 5 mg PRN QHS PRN PO INSOMNIA; Start 01/13/19 at 09:15 Acetaminophen (Tylenol) 650 mg PRN Q4HRS PRN PO TEMP OVER 100.4F OR MILD PAIN; Start 01/13/19 at 09:15 Acetaminophen (Tylenol) 650 mg PRN Q4HRS PRN GT TEMP OVER 100.4F OR MILD PAIN; Start 01/13/19 at 09:15 Al Hydroxide/Mg Hydroxide (Mylanta Plus Xs) 30 ml PRN DAILY PRN PO HEARTBURN / GAS; Start 01/13/19 at 09:15 Clonidine HCl (Catapres) 0.1 mg PRN Q6HRS PRN PO SBP>160 OR DBP>90; Start 01/13/19 at 09:15 Docusate Sodium (Colace) 100 mg PRN BID PRN PO CONSTIPATION; Start 01/13/19 at 09:15 Albuterol/ Ipratropium (Duoneb) 3 ml Q4H NEB ; Start 01/13/19 at 10:00 Guaifenesin (Robitussin) 200 mg PRN Q4HRS PRN PO COUGH; Start 01/13/19 at 09:15 Lorazepam (Ativan) 0.5 mg PRN Q4HRS PRN PO ANXIETY / AGITATION; Start 01/13/19 at 09:15 Enoxaparin Sodium (Lovenox 40mg Syringe) 40 mg DAILY SQ Last administered on 01/13/19at 09:35; Start 01/13/19 at 10:00 Potassium Chloride (Klor-Con) 40 meq 1X ONCE PO Last administered on 01/13/19at 09:33; Start 01/13/19 at 09:30; Stop 01/13/19 at 09:31; Status DC Potassium Chloride (Klor-Con) 40 meq 1X ONCE PO Last administered on 01/13/19at 11:48; Start 01/13/19 at 12:00; Stop 01/13/19 at 12:01; Status DC Active Scripts Active Reported Promethazine Hcl 25 Mg Tablet 25 Mg PO PRN Q4HRS PRN Hydrochlorothiazide Tablet (Hydrochlorothiazide) 12.5 Mg Tablet 12.5 Mg PO DAILY Lisinopril 40 Mg Tablet 40 Mg PO DAILY Gabapentin 300 Mg Capsule 300 Mg PO DAILY Clonidine Tts-1 (Clonidine) 1 Each Patch.tdwk 0.1 Mg TD WEEKLY Dicyclomine Hcl 20 Mg Tablet 20 Mg PO QID Omeprazole 40 Mg Capsule.dr 40 Mg PO DAILY Vital Signs Vital Signs Date Time Temp Pulse Resp B/P (MAP) Pulse Ox O2 Delivery O2 Flow Rate FiO2 01/13/19 09:34 103 119/80 01/13/19 08:59 Room Air 01/13/19 07:00 98.1 18 97 98.1 01/12/19 15:11 2.0 Labs Laboratory Tests Test 01/11/19 12:07 01/11/19 12:14 01/11/19 14:25 01/12/19 09:50 Bedside Urine HCG, Qualitative Hcg negative (Negative) Ethyl Alcohol Level < 10 mg/dL (0-10) Sodium Level 141 mmol/L (136-145) 138 mmol/L (136-145) Potassium Level 3.6 mmol/L (3.5-5.1) 2.9 mmol/L (3.5-5.1) Chloride Level 103 mmol/L (98-107) 101 mmol/L (98-107) Carbon Dioxide Level 24 mmol/L (21-32) 24 mmol/L (21-32) Anion Gap 14 (6-14) 13 (6-14) Blood Urea Nitrogen 6 mg/dL (7-20) 7 mg/dL (7-20) Creatinine 0.7 mg/dL (0.6-1.0) 0.8 mg/dL (0.6-1.0) Estimated GFR (Cockcroft-Gault) 115.2 98.8 BUN/Creatinine Ratio 9 (6-20) 9 (6-20) Glucose Level 102 mg/dL (70-99) 127 mg/dL (70-99) Calcium Level 9.6 mg/dL (8.5-10.1) 9.6 mg/dL (8.5-10.1) Total Bilirubin 0.5 mg/dL (0.2-1.0) 0.6 mg/dL (0.2-1.0) Aspartate Amino Transf (AST/SGOT) 18 U/L (15-37) 14 U/L (15-37) Alanine Aminotransferase (ALT/SGPT) 23 U/L (14-59) 21 U/L (14-59) Alkaline Phosphatase 76 U/L (46-116) 71 U/L (46-116) Total Protein 8.3 g/dL (6.4-8.2) 7.7 g/dL (6.4-8.2) Albumin 4.3 g/dL (3.4-5.0) 4.0 g/dL (3.4-5.0) Albumin/Globulin Ratio 1.1 (1.0-1.7) 1.1 (1.0-1.7) Lipase 153 U/L (73-393) White Blood Count 14.6 x10^3/uL (4.0-11.0) Red Blood Count 4.22 x10^6/uL (3.50-5.40) Hemoglobin 13.7 g/dL (12.0-15.5) Hematocrit 41.9 % (36.0-47.0) Mean Corpuscular Volume 99 fL (79-100) Mean Corpuscular Hemoglobin 33 pg (25-35) Mean Corpuscular Hemoglobin Concent 33 g/dL (31-37) Red Cell Distribution Width 13.4 % (11.5-14.5) Platelet Count 298 x10^3/uL (140-400) Neutrophils (%) (Auto) 68 % (31-73) Lymphocytes (%) (Auto) 25 % (24-48) Monocytes (%) (Auto) 7 % (0-9) Eosinophils (%) (Auto) 0 % (0-3) Basophils (%) (Auto) 0 % (0-3) Neutrophils # (Auto) 9.9 x10^3uL (1.8-7.7) Lymphocytes # (Auto) 3.6 x10^3/uL (1.0-4.8) Monocytes # (Auto) 1.0 x10^3/uL (0.0-1.1) Eosinophils # (Auto) 0.1 x10^3/uL (0.0-0.7) Basophils # (Auto) 0.0 x10^3/uL (0.0-0.2) Magnesium Level 2.0 mg/dL (1.8-2.4) Troponin I Quantitative < 0.017 ng/mL (0.000-0.055) Triglycerides Level 33 mg/dL (0-150) Cholesterol Level 174 mg/dL (0-200) LDL Cholesterol, Calculated 108 mg/dL (0-100) VLDL Cholesterol, Calculated 7 mg/dL (0-40) Non-HDL Cholesterol Calculated 115 mg/dL (0-129) HDL Cholesterol 59 mg/dL (40-60) Cholesterol/HDL Ratio 2.9 Test 01/13/19 03:30 White Blood Count 15.0 x10^3/uL (4.0-11.0) Red Blood Count 4.47 x10^6/uL (3.50-5.40) Hemoglobin 14.9 g/dL (12.0-15.5) Hematocrit 44.1 % (36.0-47.0) Mean Corpuscular Volume 99 fL (79-100) Mean Corpuscular Hemoglobin 33 pg (25-35) Mean Corpuscular Hemoglobin Concent 34 g/dL (31-37) Red Cell Distribution Width 13.7 % (11.5-14.5) Platelet Count 326 x10^3/uL (140-400) Neutrophils (%) (Auto) 62 % (31-73) Lymphocytes (%) (Auto) 30 % (24-48) Monocytes (%) (Auto) 7 % (0-9) Eosinophils (%) (Auto) 1 % (0-3) Basophils (%) (Auto) 0 % (0-3) Neutrophils # (Auto) 9.3 x10^3uL (1.8-7.7) Lymphocytes # (Auto) 4.5 x10^3/uL (1.0-4.8) Monocytes # (Auto) 1.0 x10^3/uL (0.0-1.1) Eosinophils # (Auto) 0.1 x10^3/uL (0.0-0.7) Basophils # (Auto) 0.1 x10^3/uL (0.0-0.2) Sodium Level 135 mmol/L (136-145) Potassium Level 3.1 mmol/L (3.5-5.1) Chloride Level 98 mmol/L (98-107) Carbon Dioxide Level 23 mmol/L (21-32) Anion Gap 14 (6-14) Blood Urea Nitrogen 8 mg/dL (7-20) Creatinine 0.9 mg/dL (0.6-1.0) Estimated GFR (Cockcroft-Gault) 86.2 BUN/Creatinine Ratio 9 (6-20) Glucose Level 111 mg/dL (70-99) Calcium Level 9.7 mg/dL (8.5-10.1) Total Bilirubin 0.7 mg/dL (0.2-1.0) Aspartate Amino Transf (AST/SGOT) 16 U/L (15-37) Alanine Aminotransferase (ALT/SGPT) 22 U/L (14-59) Alkaline Phosphatase 73 U/L (46-116) Total Protein 7.9 g/dL (6.4-8.2) Albumin 4.0 g/dL (3.4-5.0) Albumin/Globulin Ratio 1.0 (1.0-1.7) Laboratory Tests Test 01/13/19 03:30 White Blood Count 15.0 x10^3/uL (4.0-11.0) Red Blood Count 4.47 x10^6/uL (3.50-5.40) Hemoglobin 14.9 g/dL (12.0-15.5) Hematocrit 44.1 % (36.0-47.0) Mean Corpuscular Volume 99 fL (79-100) Mean Corpuscular Hemoglobin 33 pg (25-35) Mean Corpuscular Hemoglobin Concent 34 g/dL (31-37) Red Cell Distribution Width 13.7 % (11.5-14.5) Platelet Count 326 x10^3/uL (140-400) Neutrophils (%) (Auto) 62 % (31-73) Lymphocytes (%) (Auto) 30 % (24-48) Monocytes (%) (Auto) 7 % (0-9) Eosinophils (%) (Auto) 1 % (0-3) Basophils (%) (Auto) 0 % (0-3) Neutrophils # (Auto) 9.3 x10^3uL (1.8-7.7) Lymphocytes # (Auto) 4.5 x10^3/uL (1.0-4.8) Monocytes # (Auto) 1.0 x10^3/uL (0.0-1.1) Eosinophils # (Auto) 0.1 x10^3/uL (0.0-0.7) Basophils # (Auto) 0.1 x10^3/uL (0.0-0.2) Sodium Level 135 mmol/L (136-145) Potassium Level 3.1 mmol/L (3.5-5.1) Chloride Level 98 mmol/L (98-107) Carbon Dioxide Level 23 mmol/L (21-32) Anion Gap 14 (6-14) Blood Urea Nitrogen 8 mg/dL (7-20) Creatinine 0.9 mg/dL (0.6-1.0) Estimated GFR (Cockcroft-Gault) 86.2 BUN/Creatinine Ratio 9 (6-20) Glucose Level 111 mg/dL (70-99) Calcium Level 9.7 mg/dL (8.5-10.1) Total Bilirubin 0.7 mg/dL (0.2-1.0) Aspartate Amino Transf (AST/SGOT) 16 U/L (15-37) Alanine Aminotransferase (ALT/SGPT) 22 U/L (14-59) Alkaline Phosphatase 73 U/L (46-116) Total Protein 7.9 g/dL (6.4-8.2) Albumin 4.0 g/dL (3.4-5.0) Albumin/Globulin Ratio 1.0 (1.0-1.7) Allergies Allergies Coded Allergies Type Severity Reaction Last Updated Verified metoclopramide HCl Allergy Intermediate 01/21/14 Yes Disposition/Orders: D/C to Home Patient Instructions D/C PLANNING 37 MIN REYNA HENRIQUEZ MD January 13, 2019 12:07
[2019-01-13] MEDS ORDERED: AMLO10TA8 PO (12:09)
[2019-01-13] MEDS ORDERED: DOCU-109 PO (12:09)
--- NOTE | 2019-01-13 12:10 | DISCH ---
DISCHARGE INSTRUCTIONS Condition on Discharge Condition on Discharge: Stable Activity After Discharge Activity Instructions for Disc: Resume previous activity Lifting Instructions after Dis: No heavy lifting, No pulling or pushing Exercise Instruction after Dis: Walk 10 min, 3 x per day Driving Instructions after Dis: Do not drive Weight Bearing Status after Di: No restrictions, As tolerated Diet after Discharge Diet after Discharge: Cardiac Diet Texture: Regular Liquid Texture: Thin Liquid Swallowing Supervision: None needed Wound Incision Care Wound/Incision Care: No wound care needed Checks after Discharge Checks after discharge: Check blood press - daily Contacting the DRGlory after DC Call your doctor for: If your condition worsens Treatment/Equipment after DC Adaptive Equipment Issued: None Warfarin Follow-Up Warfarin Follow UP: STOP THC USE REYNA HENRIQUEZ MD January 13, 2019 12:10
[2019-01-13] MEDS: cefTRIAXone IV Push 1 GM VIAL. IVP SCH (13:18)
--- NOTE | 2019-01-13 13:30 | NUR ---
AFTER ATTEMPTING TO EAT CARDIAC DIET AFTER LIQUID DIET PATIENT HAD NAUSEA AND VOMITING. PATIENT GIVEN PO NAUSEA MEDICATION. WILL CONTINUE TO MONITOR PATIENT.
[2019-01-13] MEDS: CARVEDILOL 12.5 MG TABLET. PO SCH (15:38)
[2019-01-13] MEDS ORDERED: ONDANSETRON ODT 4 MG TAB.RAPDIS. PO PRN (15:45)
[2019-01-13] MEDS ORDERED: cloNIDine HCL 0.2 MG TABLET PO PRN (15:45)
[2019-01-13] MEDS ORDERED: cloNIDine HCL 0.1 MG TABLET PO ONE (16:00)
[2019-01-13] MEDS: HALOPERIDOL LACTATE 5 MG/ML VIAL. IM PRN (16:54)
[2019-01-13] MEDS ORDERED: NITROGLYCERIN SUBLINGUAL 0.4 MG BOTTLE OF 25. SL ONE (17:22)
[2019-01-13] MEDS: NITROGLYCERIN SUBLINGUAL 0.4 MG BOTTLE OF 25. SL PRN ×2 (17:29→17:43)
[2019-01-13] MEDS: IBUPROFEN 200 MG TABLET. PO PRN (17:40)
[2019-01-13] MEDS ORDERED: METOCLOPRAMIDE 5 MG TABLET. PO PRN (17:45)
[2019-01-13] MEDS ORDERED: HALOPERIDOL 2 MG/ML ORAL.CONC. PO PRN (17:45)
[2019-01-13] MEDS: ATORVASTATIN CALCIUM 20 MG TABLET PO SCH (21:00)
[2019-01-13] MEDS: LACTOBACILLUS RHAMNOSUS GG 1 CAPSULE. PO SCH (21:00)
[2019-01-13] MEDS: FAMOTIDINE 20 MG TABLET. PO SCH (21:15)
[2019-01-14] MEDS: IPRATRPIUM/ALBUTEROL 0.5/2.5MG 3 ML NEBU. NEB SCH ×4 (02:00→12:06)
[2019-01-14 03:45] VITALS: BP 139/95
[2019-01-14] MEDS: IBUPROFEN 200 MG TABLET. PO PRN (04:35)
[2019-01-14] MEDS: PROMETHAZINE 12.5 MG TABLET. PO PRN (04:35)
[2019-01-14 07:00] VITALS: BP 109/71
[2019-01-14] MEDS: CARVEDILOL 12.5 MG TABLET. PO SCH (08:01)
[2019-01-14] MEDS: FAMOTIDINE 20 MG TABLET. PO SCH (08:01)
[2019-01-14] MEDS: DICYCLOMINE HCL 10 MG CAPSULE PO SCH ×2 (08:01→13:21)
[2019-01-14] MEDS: LACTOBACILLUS RHAMNOSUS GG 1 CAPSULE. PO SCH (08:01)
[2019-01-14] MEDS ORDERED: hydroCHLOROthiazide 12.5 MG CAPSULE PO SCH (09:00)
[2019-01-14] MEDS: amLODIPine BESYLATE 10 MG TABLET PO SCH (09:00)
[2019-01-14] MEDS: ENOXAPARIN 40 MG/0.4 ML SYRINGE. SQ SCH (09:00)
[2019-01-14] MEDS ORDERED: hydroCHLOROthiazide 25 MG TABLET PO SCH (09:00)
[2019-01-14] MEDS: LISINOPRIL 20 MG TABLET PO SCH (10:37)
[2019-01-14] MEDS: GABAPENTIN 300 MG CAPSULE. PO SCH (10:39)
[2019-01-14 11:00] VITALS: BP 109/71
--- NOTE | 2019-01-14 11:39 | PDOC ---
PROGRESS NOTES History of Present Illness History of Present Illness Assessment/Plan Assessment/Plan Severe abdominal pain nausea vomiting with some mild leukocytosis Regadenoson cardioisotope stress test showed small amount of anterior wall ischemia with transient ischemic dilatation. Consider cardiac catheterization. Mild left ventricle systolic dysfunction with ejection fraction calculated at 46%. [place] 2018 mild to moderate aortic regurgitation. hypokalemia Plan Consult GI IM Ativan IMHaldol IM fentanyl iv k I M Rocephin IV fluids resume her home meds DVT prophylaxis Full code [place] 2018 Regadenoson cardioisotope stress test showed small amount of anterior wall ischemia with transient ischemic dilatation. Consider cardiac catheterization. Mild left ventricle systolic dysfunction with ejection fraction calculated at 46%. home today 39 MIN PT EXAM, CHART REVIEW, > 50% OF TIME SPENT WITH EXAM.,chart review, pt care coordination Vitals Vitals Vital Signs Date Time Temp Pulse Resp B/P (MAP) Pulse Ox O2 Delivery O2 Flow Rate FiO2 01/14/19 10:37 101 109/71 01/14/19 08:53 100 Room Air 01/14/19 07:00 97.9 20 97.9 Physical Exam Physical Exam SKIN: No bruising, hair changes or rashes. EYES: No blurred, double or loss of vision. NOSE AND THROAT: No history of nosebleeds, hoarseness or sore throat. HEART: No history of palpitations, chest pain or shortness of breath on exertion. LUNGS: Denies cough, hemoptysis, wheezing or shortness of breath. GASTROINTESTINAL: She complains of severe abdominal pain GENITOURINARY: No history of frequency, urgency, hesitancy or nocturia. NEUROLOGIC: Denies history of numbness, tingling, tremor or weakness. PSYCHIATRIC: No history of panic, anxiety or depression. ENDOCRINE: No history of heat or cold intolerance, polyuria or polydipsia. EXTREMITIES: Denies muscle weakness, joint pain, pain on walking or stiffness. General: Alert, Oriented X3, Cooperative, No acute distress Heart: Regular rate, Normal S1, Normal S2, Other (S4 3/6 systolic murmur to apex) Lungs: Clear, Other Abdomen: Normal bowel sounds, Soft, No hepatosplenomegaly, Other (mild tenderness to abd with palpation) Extremities: No clubbing, No cyanosis, No edema Skin: No rashes, No breakdown, No significant lesion Labs LABS Laboratory Tests Test 01/13/19 15:10 Potassium Level 4.2 mmol/L (3.5-5.1) Assessment and Plan Assessmemt and Plan Problems Medical Problems: (1) Cyclical vomiting Status: Acute (2) Marijuana abuse Status: Acute Comment Review of Relevant I have reviewed the following items hany (where applicable) has been applied. Labs Laboratory Tests Test 01/13/19 03:30 01/13/19 15:10 White Blood Count 15.0 x10^3/uL (4.0-11.0) Red Blood Count 4.47 x10^6/uL (3.50-5.40) Hemoglobin 14.9 g/dL (12.0-15.5) Hematocrit 44.1 % (36.0-47.0) Mean Corpuscular Volume 99 fL (79-100) Mean Corpuscular Hemoglobin 33 pg (25-35) Mean Corpuscular Hemoglobin Concent 34 g/dL (31-37) Red Cell Distribution Width 13.7 % (11.5-14.5) Platelet Count 326 x10^3/uL (140-400) Neutrophils (%) (Auto) 62 % (31-73) Lymphocytes (%) (Auto) 30 % (24-48) Monocytes (%) (Auto) 7 % (0-9) Eosinophils (%) (Auto) 1 % (0-3) Basophils (%) (Auto) 0 % (0-3) Neutrophils # (Auto) 9.3 x10^3uL (1.8-7.7) Lymphocytes # (Auto) 4.5 x10^3/uL (1.0-4.8) Monocytes # (Auto) 1.0 x10^3/uL (0.0-1.1) Eosinophils # (Auto) 0.1 x10^3/uL (0.0-0.7) Basophils # (Auto) 0.1 x10^3/uL (0.0-0.2) Sodium Level 135 mmol/L (136-145) Potassium Level 3.1 mmol/L (3.5-5.1) 4.2 mmol/L (3.5-5.1) Chloride Level 98 mmol/L (98-107) Carbon Dioxide Level 23 mmol/L (21-32) Anion Gap 14 (6-14) Blood Urea Nitrogen 8 mg/dL (7-20) Creatinine 0.9 mg/dL (0.6-1.0) Estimated GFR (Cockcroft-Gault) 86.2 BUN/Creatinine Ratio 9 (6-20) Glucose Level 111 mg/dL (70-99) Calcium Level 9.7 mg/dL (8.5-10.1) Total Bilirubin 0.7 mg/dL (0.2-1.0) Aspartate Amino Transf (AST/SGOT) 16 U/L (15-37) Alanine Aminotransferase (ALT/SGPT) 22 U/L (14-59) Alkaline Phosphatase 73 U/L (46-116) Total Protein 7.9 g/dL (6.4-8.2) Albumin 4.0 g/dL (3.4-5.0) Albumin/Globulin Ratio 1.0 (1.0-1.7) Laboratory Tests Test 01/13/19 15:10 Potassium Level 4.2 mmol/L (3.5-5.1) Medications Current Medications Metoclopramide HCl (Reglan Vial) 10 mg 1X ONCE IV ; Start 01/11/19 at 11:00; Stop 01/11/19 at 11:03; Status DC Diphenhydramine HCl (Benadryl) 50 mg 1X ONCE IVP ; Start 01/11/19 at 11:00; Stop 01/11/19 at 11:03; Status DC Fentanyl Citrate (Fentanyl 2ml Vial) 50 mcg 1X ONCE IV ; Start 01/11/19 at 11:00; Stop 01/11/19 at 11:03; Status DC Diphenhydramine HCl (Benadryl) 50 mg 1X ONCE IM Last administered on 01/11/19at 11:23; Start 01/11/19 at 11:00; Stop 01/11/19 at 11:07; Status DC Metoclopramide HCl (Reglan Vial) 10 mg 1X ONCE IM ; Start 01/11/19 at 11:00; Stop 01/11/19 at 11:08; Status DC Ondansetron HCl (Zofran) 4 mg 1X ONCE IM Last administered on 01/11/19at 11:23; Start 01/11/19 at 11:15; Stop 01/11/19 at 11:16; Status DC Lorazepam (Ativan) 2 mg 1X ONCE IM Last administered on 01/11/19 12:30; Start 01/11/19 at 12:15; Stop 01/11/19 at 12:19; Status DC Pantoprazole Sodium (Protonix) 40 mg 1X ONCE PO Last administered on 01/11/19at 12:30; Start 01/11/19 at 12:15; Stop 01/11/19 at 12:19; Status DC Ondansetron HCl (Zofran) 4 mg 1X ONCE IM Last administered on 01/11/19at 12:30; Start 01/11/19 at 12:15; Stop 01/11/19 at 12:19; Status DC Ceftriaxone Sodium (Rocephin Im) 1 gm 1X ONCE IM Last administered on 01/11/19at 14:04; Start 01/11/19 at 13:45; Stop 01/11/19 at 13:46; Status DC Ondansetron HCl (Zofran) 4 mg PRN Q8HRS PRN IV NAUSEA/VOMITING; Start 01/11/19 at 13:45; Stop 01/11/19 at 13:56; Status DC Acetaminophen (Tylenol) 650 mg PRN Q4HRS PRN PO FEVER; Start 01/11/19 at 13:45; Stop 01/12/19 at 13:44; Status DC Ondansetron HCl (Zofran) 4 mg PRN Q8HRS PRN IM NAUSEA/VOMITING Last administered on 01/12/19at 08:42; Start 01/11/19 at 14:00; Stop 01/13/19 at 15:30; Status DC Fentanyl Citrate (Fentanyl 2ml Vial) 75 mcg PRN Q4HRS PRN IM PAIN Last administered on 01/12/19at 14:20; Start 01/11/19 at 18:30; Stop 01/13/19 at 09:16; Status DC Lorazepam (Ativan) 2 mg PRN Q4HRS PRN IM ANXIETY / AGITATION Last administered on 01/13/19at 16:00; Start 01/11/19 at 18:30 Haloperidol Lactate (Haldol Inj) 5 mg PRN Q8HRS PRN IM ANXIETY / AGITATION Last administered on 01/13/19at 16:54; Start 01/11/19 at 18:30 Clonidine HCl (Catapres Tts-1) 1 patch WEEKLY TD ; Start 01/15/19 at 09:00 Dicyclomine HCl (Bentyl) 20 mg QID PO Last administered on 01/14/19at 08:01; Start 01/12/19 at 09:00 Gabapentin (Neurontin) 300 mg DAILY PO Last administered on 01/14/19at 10:39; Start 01/12/19 at 09:00 Hydrochlorothiazide (Microzide) 12.5 mg DAILY PO Last administered on 01/13/19at 08:15; Start 01/12/19 at 09:00; Stop 01/13/19 at 17:34; Status DC Lisinopril (Prinivil) 40 mg DAILY PO Last administered on 01/14/19at 10:37; Start 01/12/19 at 09:00 Pantoprazole Sodium (Protonix) 40 mg DAILYAC PO ; Start 01/12/19 at 08:00; Stop 01/12/19 at 13:11; Status DC Promethazine HCl (Phenergan) 25 mg PRN Q4HRS PRN PO NAUSEA/VOMITING Last administered on 01/14/19at 04:35; Start 01/12/19 at 08:00 Ceftriaxone Sodium (Rocephin) 1 gm Q24H IVP Last administered on 01/13/19 13:18; Start 01/12/19 at 14:00 Aspirin (Ecotrin) 325 mg 1X ONCE PO Last administered on 01/12/19at 13:51; Start 01/12/19 at 12:45; Stop 01/12/19 at 12:50; Status DC Hydralazine HCl (Apresoline Inj) 10 mg PRN Q4HRS PRN IVP ELEVATED BP, SEE COMMENTS Last administered on 01/13/19at 14:12; Start 01/12/19 at 12:45 Famotidine (Pepcid Vial) 20 mg BID IVP Last administered on 01/13/19 08:15; Start 01/12/19 at 21:00; Stop 01/13/19 at 21:06; Status DC Hydralazine HCl (Apresoline Inj) 10 mg 1X ONCE IVP ; Start 01/12/19 at 13:30; Stop 01/12/19 at 13:31; Status DC Potassium Chloride (Klor-Con) 40 meq 1X ONCE PO ; Start 01/12/19 at 13:30; Stop 01/12/19 at 13:31; Status DC Potassium Chloride (Klor-Con) 40 meq 1X ONCE PO Last administered on 01/12/19at 13:50; Start 01/12/19 at 13:30; Stop 01/12/19 at 13:32; Status DC Amlodipine Besylate (Norvasc) 10 mg 1X ONCE PO Last administered on 01/12/19at 13:50; Start 01/12/19 at 13:45; Stop 01/12/19 at 13:46; Status DC Atorvastatin Calcium (Lipitor) 20 mg QHS PO Last administered on 01/12/19at 20:40; Start 01/12/19 at 21:00 Lidocaine HCl (Xylocaine-Mpf 1% 2ml Vial) 2 ml STK-MED ONCE .ROUTE ; Start 01/12/19 at 14:01; Stop 01/12/19 at 14:02; Status DC Iohexol (Omnipaque 300 Mg/ml) 100 ml STK-MED ONCE .ROUTE ; Start 01/12/19 at 14:01; Stop 01/12/19 at 14:02; Status DC Heparin Sodium/ Sodium Chloride 500 ml @ As Directed STK-MED ONCE .ROUTE ; Start 01/12/19 at 14:01; Stop 01/12/19 at 14:02; Status DC Midazolam HCl (Versed) 5 mg STK-MED ONCE .ROUTE ; Start 01/12/19 at 14:31; Stop 01/12/19 at 14:32; Status DC Fentanyl Citrate (Fentanyl 2ml Vial) 100 mcg STK-MED ONCE .ROUTE ; Start 01/12/19 at 14:31; Stop 01/12/19 at 14:32; Status DC Verapamil HCl (Verapamil) 5 mg STK-MED ONCE .ROUTE ; Start 01/12/19 at 14:31; Stop 01/12/19 at 14:32; Status DC Heparin Sodium (Porcine) (Heparin Sodium) 10,000 unit STK-MED ONCE .ROUTE ; Start 01/12/19 at 14:31; Stop 01/12/19 at 14:32; Status DC Nitroglycerin (Nitroglycerin) 200 mcg STK-MED ONCE .ROUTE ; Start 01/12/19 at 14:31; Stop 01/12/19 at 14:32; Status DC Hydralazine HCl (Apresoline Inj) 20 mg STK-MED ONCE .ROUTE ; Start 01/12/19 at 14:45; Stop 01/12/19 at 14:46; Status DC Nitroglycerin (Nitroglycerin) 200 mcg 1X ONCE IART Last administered on 01/12/19 15:09; Start 01/12/19 at 15:00; Stop 01/12/19 at 15:01; Status DC Verapamil HCl (Verapamil) 2.5 mg 1X ONCE IART Last administered on 01/12/19 15:08; Start 01/12/19 at 15:00; Stop 01/12/19 at 15:01; Status DC Heparin Sodium (Porcine) (Heparin Sodium) 2,500 unit 1X ONCE IART Last administered on 01/12/19 15:09; Start 01/12/19 at 15:00; Stop 01/12/19 at 15:01; Status DC Heparin Sodium/ Sodium Chloride (HEPARIN for ARTERIAL LINE FLUSH) 1,000 unit 1X ONCE IART Last administered on 01/12/19 15:06; Start 01/12/19 at 15:00; Stop 01/12/19 at 15:01; Status DC Midazolam HCl (Versed) 3 mg 1X ONCE IV Last administered on 01/12/19 15:07; Start 01/12/19 at 15:00; Stop 01/12/19 at 15:01; Status DC Fentanyl Citrate (Fentanyl 2ml Vial) 25 mcg 1X ONCE IV Last administered on 01/12/19 15:09; Start 01/12/19 at 15:00; Stop 01/12/19 at 15:01; Status DC Iohexol (Omnipaque 300 Mg/ml) 48 ml 1X ONCE IART Last administered on 01/12/19 15:06; Start 01/12/19 at 15:00; Stop 01/12/19 at 15:01; Status DC Hydralazine HCl (Apresoline Inj) 10 mg 1X ONCE IVP Last administered on 15:07; Start 01/12/19 at 15:00; Stop 01/12/19 at 15:01; Status DC Lidocaine HCl (Xylocaine-Mpf 1% 2ml Vial) 1 ml 1X ONCE INJ Last administered on 01/12/19 15:09; Start 01/12/19 at 15:00; Stop 01/12/19 at 15:01; Status DC Info (CONTRAST GIVEN -- Rx MONITORING) 1 each PRN DAILY PRN MC SEE COMMENTS; Start 01/12/19 at 15:00; Stop 01/14/19 at 14:59 Sodium Chloride 1,000 ml @ 60 mls/hr [id number] IV ; Start 01/12/19 at 14:54; Stop 01/13/19 at 17:34; Status DC Lorazepam (Ativan) 2 mg PRN Q4HRS PRN IV ANXIETY / AGITATION Last administered on 01/13/19at 11:48; Start 01/12/19 at 15:45 Haloperidol Lactate (Haldol Inj) 5 mg PRN Q8HRS PRN IVP AGITATION Last administered on 01/13/19at 04:17; Start 01/12/19 at 15:45 Fentanyl Citrate (Fentanyl 2ml Vial) 50 mcg PRN Q2HR PRN IV PAIN Last administered on 01/13/19at 07:06; Start 01/12/19 at 17:30; Stop 01/13/19 at 09:16; Status DC Potassium Chloride/Water 100 ml @ 100 mls/hr Q1H IV ; Start 01/13/19 at 09:30; Stop 01/13/19 at 09:30; Status DC Hydrochlorothiazide (Microzide) 12.5 mg DAILY PO Last administered on 01/14/19at 10:36; Start 01/14/19 at 09:00 Amlodipine Besylate (Norvasc) 10 mg DAILY PO Last administered on 01/13/19at 09:34; Start 01/13/19 at 10:00 Sodium Chloride 1,000 ml @ 100 mls/hr Q10H IV ; Start 01/13/19 at 10:00; Stop 01/13/19 at 10:00; Status DC Ondansetron HCl (Zofran) 4 mg PRN Q4HRS PRN IV NAUSEA/VOMITING; Start 01/13/19 at 09:15 Zolpidem Tartrate (Ambien) 5 mg PRN QHS PRN PO INSOMNIA; Start 01/13/19 at 09:15 Acetaminophen (Tylenol) 650 mg PRN Q4HRS PRN PO TEMP OVER 100.4F OR MILD PAIN Last administered on 01/13/19at 15:57; Start 01/13/19 at 09:15 Acetaminophen (Tylenol) 650 mg PRN Q4HRS PRN GT TEMP OVER 100.4F OR MILD PAIN; Start 01/13/19 at 09:15 Al Hydroxide/Mg Hydroxide (Mylanta Plus Xs) 30 ml PRN DAILY PRN PO HEARTBURN / GAS Last administered on 01/14/19 04:35; Start 01/13/19 at 09:15 Clonidine HCl (Catapres) 0.1 mg PRN Q6HRS PRN PO SBP>160 OR DBP>90 Last administered on 01/13/19at 17:29; Start 01/13/19 at 09:15 Docusate Sodium (Colace) 100 mg PRN BID PRN PO CONSTIPATION; Start 01/13/19 at 09:15 Albuterol/ Ipratropium (Duoneb) 3 ml Q4H NEB Last administered on 01/14/19 08:52; Start 01/13/19 at 10:00 Guaifenesin (Robitussin) 200 mg PRN Q4HRS PRN PO COUGH; Start 01/13/19 at 09:15 Lorazepam (Ativan) 0.5 mg PRN Q4HRS PRN PO ANXIETY / AGITATION; Start 01/13/19 at 09:15; Stop 01/13/19 at 17:34; Status DC Enoxaparin Sodium (Lovenox 40mg Syringe) 40 mg DAILY SQ Last administered on 01/13/19at 09:35; Start 01/13/19 at 10:00 Potassium Chloride (Klor-Con) 40 meq 1X ONCE PO Last administered on 01/13/19at 09:33; Start 01/13/19 at 09:30; Stop 01/13/19 at 09:31; Status DC Potassium Chloride (Klor-Con) 40 meq 1X ONCE PO Last administered on 01/13/19at 11:48; Start 01/13/19 at 12:00; Stop 01/13/19 at 12:01; Status DC Lactobacillus Rhamnosus (Culturelle) 1 cap BID PO Last administered on 01/14/19at 08:01; Start 01/13/19 at 21:00 Clonidine HCl (Catapres) 0.2 mg 1X ONCE PO Last administered on 01/13/19at 15:36; Start 01/13/19 at 16:00; Stop 01/13/19 at 16:01; Status DC Carvedilol (Coreg) 12.5 mg BIDWMEALS PO Last administered on 01/14/19at 08:01; Start 01/13/19 at 16:00 Clonidine HCl (Catapres) 0.2 mg PRN Q8HRS PRN PO for SBP greater than 170; Start 01/13/19 at 15:45 Ondansetron HCl (Zofran Odt) 4 mg PRN Q4HRS PRN PO NAUSEA/VOMITING Last administered on 01/13/19at 15:56; Start 01/13/19 at 15:45 Nitroglycerin (Nitrostat) 0.4 mg PRN Q5MIN PRN SL CHEST PAIN Last administered on 01/13/19at 17:43; Start 01/13/19 at 17:30 Nitroglycerin (Nitrostat) 0.4 mg STK-MED ONCE SL ; Start 01/13/19 at 17:22; Stop 01/13/19 at 17:23; Status DC Ibuprofen (Motrin) 600 mg PRN Q6HRS PRN PO INFLAMMATION Last administered on 01/14/19 04:35; Start 01/13/19 at 17:30 Hydrochlorothiazide (Hydrodiuril) 25 mg DAILY PO ; Start 01/14/19 at 09:00 Lorazepam (Ativan) 1 mg PRN Q4HRS PRN PO ANXIETY / AGITATION Last administered on 01/14/19at 04:36; Start 01/13/19 at 17:45 Haloperidol Lactate (HALDOL 2mg ORAL CONC) 2 mg PRN QID PRN PO AGITATION; Start 01/13/19 at 17:45 Metoclopramide HCl (Reglan) 5 mg PRN BFRMEALHC PRN PO NAUSEA/VOMITING; Start 01/13/19 at 17:45; Status UNV Famotidine (Pepcid) 20 mg BIDAC PO Last administered on 01/14/19at 08:01; Start 01/13/19 at 21:15 Active Scripts Active Colace (Docusate Sodium) 100 Mg Capsule 100 Mg PO PRN BID PRN 30 Days Amlodipine Besylate 10 Mg Tablet 10 Mg PO DAILY 30 Days Reported Hydrochlorothiazide Tablet (Hydrochlorothiazide) 12.5 Mg Tablet 12.5 Mg PO DAILY Lisinopril 40 Mg Tablet 40 Mg PO DAILY Gabapentin 300 Mg Capsule 300 Mg PO DAILY Clonidine Tts-1 (Clonidine) 1 Each Patch.tdwk 0.1 Mg TD WEEKLY Dicyclomine Hcl 20 Mg Tablet 20 Mg PO QID Omeprazole 40 Mg Capsule.dr 40 Mg PO DAILY Vitals/I & O Vital Sign - Last 24 Hours 01/13/19 01/13/19 01/13/19 01/13/19 13:09 14:02 14:12 15:36 Temp 98.1 98.1 Pulse 117 103 132 Resp 18 B/P (MAP) 221/116 (151) 223/118 193/86 Pulse Ox 100 98 O2 Delivery Room Air Room Air 01/13/19 01/13/19 01/13/19 01/13/19 15:38 16:56 17:29 17:29 Pulse 142 132 132 132 B/P (MAP) 193/86 197/125 (149) 197/125 197/125 01/13/19 01/13/19 01/13/19 01/13/19 17:43 17:52 18:48 19:32 Pulse 133 132 117 B/P (MAP) 151/81 145/72 (96) 91/51 (64) Pulse Ox 100 O2 Delivery Room Air 01/13/19 01/13/19 01/13/19 01/14/19 19:50 20:00 22:50 03:45 Temp 98.0 97.4 97.4 98.0 97.4 97.4 Pulse 105 90 97 Resp 20 18 20 B/P (MAP) 85/50 (62) 84/51 (62) 139/95 (110) Pulse Ox 97 98 96 O2 Delivery Room Air Room Air Room Air Room Air 01/14/19 01/14/19 01/14/19 01/14/19 07:00 07:40 08:01 08:53 Temp 97.9 97.9 Pulse 93 101 Resp 20 B/P (MAP) 109/71 (84) 109/71 Pulse Ox 97 100 O2 Delivery Room Air Room Air Room Air 01/14/19 10:37 Pulse 101 B/P (MAP) 109/71 Intake and Output 01/13/19 01/13/19 01/14/19 14:59 22:59 06:59 Intake Total 200 ml Balance 200 ml REYNA HENRIQUEZ MD January 14, 2019 11:39
[2019-01-14] MEDS ORDERED: AMOX1TAB58 PO (12:49)
--- NOTE | 2019-01-14 13:47 | NUR ---
AMLODIPINE AND AUGMENTIN PRESCRIPTIONS CALLED INTO [facility] [address] [facility]. PATIENTS DISCHARGE INSTRUCTIONS INCLUDING POST CARDIAC CATHETERIZATION CARE DISCUSSED WITH PATIENT. PATIENT INFORMED SHE MAY RETURN TO WORK ON TuesdayJanuary. PATIENT STABLE WITH NO QUESTIONS AT TIME OF DISCHARGE. NO IV IN PLACE, TELE MONITOR OFF PATIENT. PATIENT ESCORTED TO MOTHERS PERSONAL VEHICLE BY THIS RN.
[2019-01-15] MEDS ORDERED: cloNIDine TTS-1 1 PATCH PATCH.TDWK TD SCH (09:00)
== END 2019-01-14 13:54 | disposition home or self-care (01) | DRG 392 ==
LOC: ER 10:18 → 5 NORTH 13:30 → OBSVTOIN 14:13 → 5 NORTH 14:25 → 2 NORTH 01-12 15:31
PROVIDERS: ADMIT Internal Medicine; ATTEND Internal Medicine
PROC: 4A023N7 Measurement of Cardiac Sampling and Pressure, Left Heart, Percutaneous Approach (ICD-10-PCS; principal; 2019-01-12)
PROC: B2111ZZ Fluoroscopy of Multiple Coronary Arteries using Low Osmolar Contrast (ICD-10-PCS; 2019-01-12)
DX: K29.00 Acute gastritis without bleeding (principal); R65.10 Systemic inflammatory response syndrome (SIRS) of non-infectious origin without acute organ dysfunction; R07.89 Other chest pain; E87.6 Hypokalemia; K21.9 Gastro-esophageal reflux disease without esophagitis; D72.829 Elevated white blood cell count, unspecified; I10 Essential (primary) hypertension; E66.9 Obesity, unspecified; G89.29 Other chronic pain; F12.10 Cannabis abuse, uncomplicated; J45.909 Unspecified asthma, uncomplicated; F17.210 Nicotine dependence, cigarettes, uncomplicated; I35.1 Nonrheumatic aortic (valve) insufficiency; Z68.32 Body mass index [BMI] 32.0-32.9, adult; Z88.8 Allergy status to other drugs, medicaments and biological substances; Z82.49 Family history of ischemic heart disease and other diseases of the circulatory system; Z90.49 Acquired absence of other specified parts of digestive tract; Z71.6 Tobacco abuse counseling
CPT/HCPCS: 36415; 74176; 80053; 80061; 80307; 81001; 81025; 83690; 83735; 84132; 84484; 85025; 93306; 93458; 94640; 96372; 99152; 99153; C1769; C1892; G0379; G0480; J0360; J0696; J1200; J1630; J1644; J1650; J2060; J2250; J2405; J3010; J3490; J7620; Q0162; Q0169; Q9967; 99285-25

== ENCOUNTER 2019-03-14 10:55 | Emergency (ER) | payer OTHER ==
[~2019-03-14] VITALS: Ht 180.3 cm; Wt 108.6 kg
[~2019-03-14 10:55] MED LIST changes: +AMLO10TA8 PO; +AMOX1TAB58 PO; +CLON1PAT TD; +DICY20TA3 PO; +DOCU-109 PO; +GABA300C9 PO; +HYDR12.58 PO; +LISI40TA2 PO; +PROM25TA10 PO
[2019-03-14] MEDS ORDERED: IV NORMAL SALINE 1000ML BAG 1,000 ML IV ONE (11:15)
[2019-03-14] MEDS ORDERED: ONDANSETRON PF 4 MG/2 ML VIAL. IV ONE (11:15)
[2019-03-14] MEDS ORDERED: LIDO:MAALOX 1:1 20 ML SINGLE DOSE. ONE (11:17)
[2019-03-14] MEDS ORDERED: LIDO:MAALOX 1:1 20 ML SINGLE DOSE. SWSW ONE (11:30)
[2019-03-14 11:34] LABS: BILIRUBIN,URINE NEGATIVE (NEG); CLARITY,URINE CLEAR; COLOR,URINE YELLOW; NITRITE,URINE NEGATIVE (NEG); PH,URINE 5.5; PROTEIN,URINE NEGATIVE (NEG-TRACE); UROBILINOGEN,URINE 0.2 mg/dL (0.2 mg/dL)
[2019-03-14 11:38] LABS: SQUAMOUS EPITHELIAL CELL,UR MANY /LPF
[2019-03-14 11:39] LABS: BACTERIA,URINE MANY /HPF (0-FEW)
--- NOTE | 2019-03-14 11:46 | PHYS DOC ---
Past Medical History Past Medical History: GERD, Hypertension Additional Past Medical Histor: CYCLIC VOMITING SYNDROME, OBESITY, chronic pain (MIGUEL A SIGALA APRN) Past Surgical History: No Surgical History Additional Past Surgical Histo: EGD. (MIGUEL A SIGALA APRN) Alcohol Use: Occasionally Drug Use: Marijuana (MIGUEL A SIGALA APRN) Adult General Chief Complaint Chief Complaint: ABDOMINAL PAIN HPI HPI Patient is a 33 year old AA female who presents to the emergency room with complaints of epigastric abdominal pain, nausea, vomiting since 4:00 this morning. Patient states that she has vomited 3 or 4 times, she denies any blood in her vomit. She denies any fever, cough, shortness of breath, dysuria, increased urinary frequency, hematuria, or diarrhea. Patient states she has been constipated recently and has been using suppositories for relief of her constipation. Patient states that when she bent over yesterday she's felt something pull in her right low back and reports that the area is sore. Currently she reports her pain as a 10 out of 10 on the pain scale, there are no alleviating or aggravating factors. Patient states that she last smoked marijuana blood 2018 (MIGUEL A SIGALA APRN) Review of Systems Review of Systems Constitutional: Denies fever or chills [] Eyes: Denies change in visual acuity, redness, or eye pain [] HENT: Denies nasal congestion or sore throat [] Respiratory: Denies cough or shortness of breath [] Cardiovascular: No additional information not addressed in HPI [] GI: See history of present illness : Denies dysuria or hematuria [] Musculoskeletal: See history of present illness Integument: Denies rash or skin lesions [] Neurologic: Denies headache, focal weakness or sensory changes [] Endocrine: Denies polyuria or polydipsia [] Complete systems were reviewed and found to be within normal limits, except as documented in this note. (MIGUEL A SIGALA APRN) Current Medications Current Medications Current Medications Medications (Trade) Dose Ordered Sig/Benita Start Time Stop Time Status Last Admin Dose Admin Fentanyl Citrate (Fentanyl 2ml Vial) 75 mcg 1X ONCE 03/14/19 12:30 03/14/19 12:31 DC 03/14/19 12:10 75 MCG Hyoscyamine (Anaspaz) 0.125 mg PRN Q4HRS PRN 03/14/19 12:15 03/14/19 16:03 DC 03/14/19 12:30 0.125 MG Lorazepam (Ativan Inj) 2 mg 1X ONCE 03/14/19 13:45 03/14/19 13:46 DC 03/14/19 13:42 2 MG Morphine Sulfate (Morphine Sulfate) 6 mg 1X ONCE 03/14/19 14:15 03/14/19 14:16 DC 03/14/19 14:16 6 MG Multi-Ingredient Mouthwash/Gargle (Gi Cocktail) 20 ml 1X ONCE 03/14/19 11:30 03/14/19 11:31 DC 03/14/19 11:24 20 ML Ondansetron HCl (Zofran Odt) 4 mg 1X ONCE 03/14/19 12:30 03/14/19 12:31 DC 03/14/19 12:14 4 MG Ondansetron HCl (Zofran) 4 mg 1X ONCE 03/14/19 11:15 03/14/19 11:16 DC Promethazine HCl (Phenergan Supp) 25 mg 1X ONCE 03/14/19 12:30 03/14/19 12:31 DC 03/14/19 12:31 25 MG Sodium Chloride 1,000 ml @ 1,000 mls/hr 1X ONCE 03/14/19 11:15 03/14/19 12:16 DC (KHOA LUNA DO) Allergies Allergies Allergies Coded Allergies Type Severity Reaction Last Updated Verified metoclopramide HCl Allergy Intermediate 01/21/14 Yes (KHOA LUNA DO) Physical Exam Physical Exam Constitutional: Well developed, well nourished, no acute distress, non-toxic appearance, obese. [] HENT: Normocephalic, atraumatic, bilateral external ears normal, oropharynx moist, no oral exudates, nose normal. [] Eyes: conjunctiva normal, no discharge. [] Neck: Normal range of motion, no stridor. [] Cardiovascular:Heart rate regular rhythm, no murmur [] Lungs & Thorax: Bilateral breath sounds clear to auscultation, respirations even and unlabored no retractions [] Abdomen: Bowel sounds normal, soft, epigastric tenderness to palpation, no guarding, no rebound tenderness, no masses, no pulsatile masses. [] Skin: Warm, dry, no erythema, no rash. [] Back: No bony tenderness, no CVA tenderness; right lumbar paraspinal TTP. [] Extremities: No cyanosis, ROM intact, no edema. [] Neurologic: Alert and oriented X 3, no focal deficits noted. [] Psychologic: Affect normal, judgement normal, mood normal. [] (MIGUEL A SIGALA APRN) Current Patient Data Vital Signs Vital Signs Date Time Temp Pulse Resp B/P (MAP) Pulse Ox O2 Delivery O2 Flow Rate FiO2 03/14/19 15:24 189/88 (121) 03/14/19 14:16 98 Room Air 03/14/19 12:20 102 35 03/14/19 11:00 98.7 98.7 (KHOA LUNA DO) Lab Values Laboratory Tests Test 03/14/19 11:10 03/14/19 11:12 03/14/19 13:40 Urine Collection Type Void Urine Color Yellow Urine Clarity Clear Urine pH 5.5 Urine Specific [place] 1.025 Urine Protein Negative mg/dL (NEG-TRACE) Urine Glucose (UA) Negative mg/dL (NEG) Urine Ketones (Stick) Negative mg/dL (NEG) Urine Blood Negative (NEG) Urine Nitrite Negative (NEG) Urine Bilirubin Negative (NEG) Urine Urobilinogen Dipstick 0.2 mg/dL (0.2 mg/dL) Urine Leukocyte Esterase Moderate (NEG) Urine RBC 1-2 /HPF (0-2) Urine WBC 5-10 /HPF (0-4) Urine Squamous Epithelial Cells Many /LPF Urine Bacteria Many /HPF (0-FEW) Urine Mucus Marked /LPF POC Urine HCG, Qualitative Hcg negative (Negative) White Blood Count 9.7 x10^3/uL (4.0-11.0) Red Blood Count 4.51 x10^6/uL (3.50-5.40) Hemoglobin 15.4 g/dL (12.0-15.5) Hematocrit 46.5 % (36.0-47.0) Mean Corpuscular Volume 103 fL (79-100) H Mean Corpuscular Hemoglobin 34 pg (25-35) Mean Corpuscular Hemoglobin Concent 33 g/dL (31-37) Red Cell Distribution Width 14.5 % (11.5-14.5) Platelet Count x10^3/uL (140-400) Neutrophils (%) (Auto) 65 % (31-73) Lymphocytes (%) (Auto) 29 % (24-48) Monocytes (%) (Auto) 5 % (0-9) Eosinophils (%) (Auto) 1 % (0-3) Basophils (%) (Auto) 1 % (0-3) Neutrophils # (Auto) 6.3 x10^3/uL (1.8-7.7) Lymphocytes # (Auto) 2.8 x10^3/uL (1.0-4.8) Monocytes # (Auto) 0.4 x10^3/uL (0.0-1.1) Eosinophils # (Auto) 0.1 x10^3/uL (0.0-0.7) Basophils # (Auto) 0.1 x10^3/uL (0.0-0.2) Sodium Level 141 mmol/L (136-145) Potassium Level 4.5 mmol/L (3.5-5.1) Chloride Level 107 mmol/L (98-107) Carbon Dioxide Level 18 mmol/L (21-32) L Anion Gap 16 (6-14) H Blood Urea Nitrogen 8 mg/dL (7-20) Creatinine 0.7 mg/dL (0.6-1.0) Estimated GFR (Cockcroft-Gault) 115.2 BUN/Creatinine Ratio 11 (6-20) Glucose Level 88 mg/dL (70-99) Calcium Level 9.7 mg/dL (8.5-10.1) Magnesium Level 2.4 mg/dL (1.8-2.4) Total Bilirubin 0.7 mg/dL (0.2-1.0) Aspartate Amino Transferase (AST) 23 U/L (15-37) Alanine Aminotransferase (ALT) 26 U/L (14-59) Alkaline Phosphatase 74 U/L (46-116) Total Protein 8.0 g/dL (6.4-8.2) Albumin 4.3 g/dL (3.4-5.0) Albumin/Globulin Ratio 1.2 (1.0-1.7) Laboratory Tests 03/14/19 13:40 Laboratory Tests 03/14/19 13:40 Microbiology 03/14/19 Urine Culture - Final, Complete 03/14/19 Urine Culture Result 1 (YAEL) - Final, Complete (KHOA LUNA DO) EKG EKG [] (MIGUEL A SIGALA APRN) Radiology/Procedures Radiology/Procedures [] (MIGUEL A SIGALA APRN) Course & Med Decision Making Course & Med Decision Making Pertinent Labs and Imaging studies reviewed. (See chart for details) DX: abdominal pain, UTI, depression, anxiety [facility] PAT steaming cabinet tender was at bedside to talk with pt after she verbalized depressed feelings related to chronic pain. PT denies any suicidal ideations. Pt was given 4 mg of SL zofran, 25 mg IM phenergan, 2 mg IM ativan, 6 mg of SQ morphine, and 75 mcg of Fentanyl in the ER. She did not vomit after having the phenergan suppository. CBC unremarkable, CMP unremarkable, UA concerning for UTI. PT declined CT scan as labs were normal and she had a hx of 7 CT abdomens in the last 2 years. Follow up with PCP next week as planned. Use the resources provided by [facility] to establish care for depression and anxiety Patient verbalized an understanding of home care, medications, follow-up, and return to ED instructions and was in agreement with the plan of care. [] (MIGUEL A SIGALA APRN) Yesenia Disclaimer Dragon Disclaimer This electronic medical record was generated, in whole or in part, using a voice recognition dictation system. (MIGUEL A SIGALA APRN) Departure Departure Impression: Primary Impression: Abdominal pain Additional Impressions: UTI (urinary tract infection) Anxiety Depression Disposition: 01 HOME, SELF-CARE Condition: STABLE Referrals: DAVIDE CROUCH MD (PCP) Patient Instructions: Abdominal Pain (Nonspecific), Urinary Tract Infection, [id number] Additional Instructions: Fill prescription(s) and use as directed. Avoid bladder irritants such as caffeine, carbonation, and spicy foods. Increase clear fluids. Follow up with your primary care doctor as scheduled next week. Follow-up will [facility] as discussed with Bryant during today's visit. Return to the ER if symptoms worsen. Scripts Cephalexin (KEFLEX) 500 Mg Capsule 1 CAP PO BID for 7 Days, #14 CAP 0 Refills Prov: MIGUEL A SIGALA APRN 03/14/19 Attending Signature Attending Signature I have reviewed the PA/HEMATOLOGY NURSE EDUCATOR's note and plan of care. I was available for consultation as needed during the patient's visit in the emergency department. I agree with the clinical impression, plan, and disposition. (KHOA LUNA DO) Problem Qualifiers Primary Impression: Abdominal pain Abdominal location: epigastric Qualified Codes: R10.13 - Epigastric pain Additional Impressions: UTI (urinary tract infection) Urinary tract infection type: site unspecified Hematuria presence: without hematuria Qualified Codes: N39.0 - Urinary tract infection, site not specified Depression Depression Type: unspecified Qualified Codes: F32.9 - Major depressive disorder, single episode, unspecified MIGUEL A SIGALA APRN Mar 14, 2019 11:46 KHOA LUNA DO Mar 17, 2019 06:18
[2019-03-14] MEDS ORDERED: ONDANSETRON ODT 4 MG TAB.RAPDIS. ONE (12:00)
[2019-03-14] MEDS ORDERED: HYOSCYAMINE 0.125 MG TAB.RAPDIS PO PRN (12:15)
[2019-03-14] MEDS ORDERED: PROMETHAZINE 25 MG SUPP.RECT. PR ONE (12:30)
[2019-03-14] MEDS ORDERED: ONDANSETRON ODT 4 MG TAB.RAPDIS. PO ONE (12:30)
[2019-03-14] MEDS ORDERED: fentaNYL PF VIAL 100 MCG/2 ML VIAL IM ONE (12:30)
[2019-03-14 13:55] LABS: BASO # 0.1 x10^3/uL (0.0-0.2); BASO % 1 % (0-3); EOS # 0.1 x10^3/uL (0.0-0.7); EOS % 1 % (0-3); HEMATOCRIT 46.5 % (36.0-47.0); HEMOGLOBIN 15.4 g/dL (12.0-15.5); LYMPH # 2.8 x10^3/uL (1.0-4.8); LYMPH % 29 % (24-48); MEAN CORPUSCULAR HEMOGLOBIN 34 pg (25-35); MEAN CORPUSCULAR HGB CONC 33 g/dL (31-37); MEAN CORPUSCULAR VOLUME 103 fL (79-100); MONO # 0.4 x10^3/uL (0.0-1.1); MONO % 5 % (0-9); NEUT # 6.3 x10^3/uL (1.8-7.7); NEUT % 65 % (31-73); RED BLOOD COUNT 4.51 x10^6/uL (3.50-5.40); RED CELL DISTRIBUTION WIDTH 14.5 % (11.5-14.5); WHITE BLOOD COUNT 9.7 x10^3/uL (4.0-11.0)
[2019-03-14 14:01] LABS: CALCIUM 9.7 mg/dL (8.5-10.1); CREATININE 0.7 mg/dL (0.6-1.0); GFR 115.2; POTASSIUM 4.5 mmol/L (3.5-5.1)
[2019-03-14 14:09] LABS: ALBUMIN 4.3 g/dL (3.4-5.0); ALBUMIN/GLOBULIN RATIO 1.2 (1.0-1.7); MAGNESIUM 2.4 mg/dL (1.8-2.4); TOTAL BILIRUBIN 0.7 mg/dL (0.2-1.0)
[2019-03-14] MEDS ORDERED: MORPHINE SULFATE 10 MG/ML VIAL. SQ ONE (14:15)
[2019-03-14] MEDS ORDERED: CEPH-264 PO (15:13)
[2019-03-14 15:24] VITALS: BP 189/88
== END 2019-03-14 15:28 | disposition home or self-care (01) ==
LOC: ER 10:55
DX: N39.0 Urinary tract infection, site not specified (principal); F41.9 Anxiety disorder, unspecified; F32.9 Major depressive disorder, single episode, unspecified; I10 Essential (primary) hypertension; K21.9 Gastro-esophageal reflux disease without esophagitis; G89.29 Other chronic pain; E66.9 Obesity, unspecified; Z68.33 Body mass index [BMI] 33.0-33.9, adult; Z88.8 Allergy status to other drugs, medicaments and biological substances
CPT/HCPCS: 36415; 80053; 81001; 81025; 83735; 85025; 87086; 96372; 99284; J2060; J2270; J3010; Q0162

== ENCOUNTER → 2020-02-18 | Outpatient (CLI) | payer OTHER ==
[~2020-02-18] MED LIST changes: +BARIUM SULFATE 60% 355 ML SUSP PO ONE; +CEPH-264 PO; +OMEP40CA45 PO; -OMEP40CA5 PO; +POTA20TA4 PO; -POTA20TA82 PO
--- NOTE | 2020-02-18 11:18 | RAD ---
EXAM: SMALL BOWEL FOLLOW-THROUGH. HISTORY: Abdominal pain. COMPARISON: None. FINDINGS: A sql data architect image was obtained. Barium contrast material was administered orally and followed in its course through the stomach, and small bowel to the extent the patient was willing to participate in this exam. At 60 minutes following oral contrast ingestion and with contrast material opacifying small bowel loops in the pelvis but not the large bowel, patient elected to terminate the examination early signing a believe that she was actually here for an endoscopic examination and than this study was redundant with previous noninvasive imaging studies of bowel, some performed at the [facility]. The sql data architect image demonstrates a nonobstructive bowel gas pattern. There are no distended small bowel loops. No strictures are seen. The opacified small bowel fold pattern is unremarkable. A small diverticulum of the third portion of the duodenum is present. IMPRESSION: 1. Apart from a small third portion duodenal diverticulum, this incomplete small bowel series is unremarkable. 2. Patient terminated the exam early before the terminal ileum was opacified. I encouraged her to follow up with her primary care physician to review all her diagnostic testing to this point with her and have a discussion to map out a path foreward that she is comfortable with. Electronically signed by: Millie Beck MD (02/18/2020 11:15 AM) [id number]
== END | disposition home or self-care (01) ==
LOC: RAD 08:41
PROVIDERS: ATTEND Internal Medicine Gastroenterology
DX: K57.10 Diverticulosis of small intestine without perforation or abscess without bleeding (principal)
CPT/HCPCS: 74250

== ENCOUNTER → 2021-01-08 | Outpatient (CLI) | payer OTHER ==
[~2021-01-08] MED LIST changes: +AMLO-187 PO; -AMLO10TA8 PO; -BARIUM SULFATE 60% 355 ML SUSP PO ONE; -LISI40TA2 PO; +LISI40TA6 PO
--- NOTE | 2021-01-08 09:41 | RAD ---
Renal arterial duplex ultrasound 01/08/2021 INDICATION: Hypertension COMPARISON STUDY: None Discussion: Ultrasound evaluation of the renal arteries was performed. Static images are submitted to PACS. Evalu ation includes color Doppler imaging spectral analysis. Velocity within abdominal aorta at the level the renal arteries: 1 20 cm/s The right kidney is normal in morphology measuring 10.1 cm in length. Left kidney is normal in morpho logy measuring approximately 10.2 cm in length. Peak systolic velocity, right renal artery 170 cm/s. Peak systolic velocity left renal artery 93 cm/s Right renal aortic ratio 1.4 Left renal aortic ratio of 0.8 IMPRESSION: No evidence of hemodynamically significant renal arterial stenosis Electronically signed by: Willie Back MD (01/08/2021 9:39 AM) [id number]
== END ==
LOC: US 07:08
PROVIDERS: ATTEND Family Medicine
DX: I10 Essential (primary) hypertension (principal)
CPT/HCPCS: 93975

== ENCOUNTER 2021-04-29 10:19 | Emergency (ER) | payer OTHER ==
[~2021-04-29] VITALS: Ht 180.3 cm; Wt 115.0 kg
[~2021-04-29 10:19] MED LIST changes: -OMEP40CA45 PO; +OMEP40CA7 PO
[2021-04-29 11:14] VITALS: BP 178/81
--- NOTE | 2021-04-29 11:40 | ED.ADGEN ---
Past Medical History Past Medical History: GERD, Hypertension, Sickle Cell Disease Additional Past Medical Histor: CYCLIC VOMITING SYNDROME, OBESITY, chronic pain Past Surgical History: No Surgical History Additional Past Surgical Histo: EGD. Smoking Status: Current Every Day Smoker Alcohol Use: None Drug Use: Marijuana General Adult EDM: Chief Complaint: HEADACHE HPI: HPI: Patient is a 35 year old female coming in via EMS for headache since 2 AM. Patient states she has chronic abdominal pain and was vomiting earlier. EMS states the patient has been run 4 times in the past week to different hospitals. Patient states that she is on been the one hospital in the past week. Patient has a history of migraines but says is worse. Has been gradually getting worse and is throbbing in the back of her head. Denies any vision changes. Patient has a history of chronic GERD and states she has tried taking her Zofran earlier today without improvement. Patient states she uses NSAIDs regularly and had 600 mg ibuprofen this morning. Patient says she used to smoke marijuana regularly has not for the past 2 weeks. Denies any diarrhea. Denies possibility of . Review of Systems: Review of Systems: All other systems within normal limits except for as noted in the HPI Current Medications: Current Medications Medications (Trade) Dose Ordered Sig/Benita Start Time Stop Time Status Last Admin Dose Admin Diphenhydramine HCl (Benadryl) 25 mg 1X ONCE 04/29/21 11:45 04/29/21 11:46 DC 04/29/21 12:30 25 MG Ketorolac Tromethamine (Toradol 15mg Vial) 15 mg 1X ONCE 04/29/21 11:45 04/29/21 11:46 DC 04/29/21 12:29 15 MG Metoclopramide HCl (Reglan Vial) 10 mg 1X ONCE 04/29/21 11:45 04/29/21 11:46 UNV Potassium Chloride (Klor-Con) 40 meq 1X ONCE 04/29/21 13:30 04/29/21 13:31 DC 04/29/21 13:30 40 MEQ Prochlorperazine Edisylate (Compazine) 10 mg 1X ONCE 04/29/21 11:45 04/29/21 11:46 DC 04/29/21 11:45 10 MG Sodium Chloride 1,000 ml @ 1,000 mls/hr 1X ONCE 04/29/21 11:45 04/29/21 12:44 DC Allergies: Allergies: Allergies Coded Allergies Type Severity Reaction Last Updated Verified metoclopramide HCl Allergy Intermediate 01/21/14 Yes morphine Allergy Intermediate 01/13/21 Yes Physical Exam: PE: Constitutional: Well developed, well nourished, no acute distress, non-toxic appearance. [] HENT: Normocephalic, atraumatic, bilateral external ears normal, nose normal. [] Eyes: PERRLA, conjunctiva normal, no discharge. Pupils pinpoint and equal [] Neck: No rigidity, supple, no stridor. [] Cardiovascular: Regular rate and rhythm, brisk cap refill [] Lungs & Thorax: Non labored symmetric respirations, no tachypnea or respiratory distress [] Abdomen: Soft, nondistended, denies tenderness Skin: Warm, dry, no erythema, no rash. [] Back: Unremarkable Extremities: No deformities, range of motion grossly intact, no lower extremity edema [] Neurologic: Alert and oriented X 3, no focal deficits noted. [] Psychologic: Patient writhing around the bed, able to be distracted. Current Patient Data: Labs: Laboratory Tests Test 04/29/21 12:37 White Blood Count 15.1 x10^3/uL (4.0-11.0) H Red Blood Count 4.60 x10^6/uL (3.50-5.40) Hemoglobin 15.3 g/dL (12.0-15.5) Hematocrit 43.9 % (36.0-47.0) Mean Corpuscular Volume 96 fL (79-100) Mean Corpuscular Hemoglobin 33 pg (25-35) Mean Corpuscular Hemoglobin Concent 35 g/dL (31-37) Red Cell Distribution Width 13.2 % (11.5-14.5) Platelet Count 341 x10^3/uL (140-400) Neutrophils (%) (Auto) 62 % (31-73) Lymphocytes (%) (Auto) 27 % (24-48) Monocytes (%) (Auto) 9 % (0-9) Eosinophils (%) (Auto) 1 % (0-3) Basophils (%) (Auto) 1 % (0-3) Neutrophils # (Auto) 9.3 x10^3/uL (1.8-7.7) H Lymphocytes # (Auto) 4.1 x10^3/uL (1.0-4.8) Monocytes # (Auto) 1.3 x10^3/uL (0.0-1.1) H Eosinophils # (Auto) 0.2 x10^3/uL (0.0-0.7) Basophils # (Auto) 0.1 x10^3/uL (0.0-0.2) Sodium Level 135 mmol/L (136-145) L Potassium Level 3.1 mmol/L (3.5-5.1) L Chloride Level 97 mmol/L (98-107) L Carbon Dioxide Level 29 mmol/L (21-32) Anion Gap 9 (6-14) Blood Urea Nitrogen 16 mg/dL (7-20) Creatinine 0.9 mg/dL (0.6-1.0) Estimated GFR (Cockcroft-Gault) 85.2 BUN/Creatinine Ratio 18 (6-20) Glucose Level 115 mg/dL (70-99) H Calcium Level 9.5 mg/dL (8.5-10.1) Total Bilirubin 0.9 mg/dL (0.2-1.0) Aspartate Amino Transferase (AST) 21 U/L (15-37) Alanine Aminotransferase (ALT) 37 U/L (14-59) Alkaline Phosphatase 73 U/L (46-116) Total Protein 8.1 g/dL (6.4-8.2) Albumin 4.3 g/dL (3.4-5.0) Albumin/Globulin Ratio 1.1 (1.0-1.7) Lipase 58 U/L (73-393) L Ethyl Alcohol Level < 10 mg/dL (0-10) Laboratory Tests 04/29/21 12:37 Laboratory Tests 04/29/21 12:37 Vital Signs: Vital Signs Date Time Temp Pulse Resp B/P (MAP) Pulse Ox O2 Delivery O2 Flow Rate FiO2 04/29/21 11:14 98.6 119 16 178/81 97 Room Air 98.6 EKG: EKG: [] Heart Score: C/O Chest Pain: No Risk Factors: Risk Factors: DM, Current or recent (<one month) smoker, HTN, HLP, family history of CAD, obesity. Risk Scores: Score 0 - 3: 2.5% MACE over next 6 weeks - Discharge Home Score 4 - 6: 20.3% MACE over next 6 weeks - Admit for Clinical Observation Score 7 - 10: 72.7% MACE over next 6 weeks - Early Invasive Strategies Radiology/Procedures: Radiology/Procedures: [] Course & Med Decision Making: Course & Med Decision Making Pertinent Labs and Imaging studies reviewed. (See chart for details) [] Dragon Disclaimer: Dragon Disclaimer: This electronic medical record was generated, in whole or in part, using a voice recognition dictation system. Departure Departure Impression: Primary Impression: Headache Additional Impressions: Hypokalemia GERD (gastroesophageal reflux disease) Disposition: HOME / SELF CARE / HOMELESS Condition: STABLE Referrals: Umm LEMONS MD (PCP) NAHUM LÓPEZ MD Patient Instructions: Hypokalemia Additional Instructions: Follow-up with GI for your chronic abdominal pain. Increase potassium in your diet. Get your Covid vaccines. Scripts Promethazine Hcl (PROMETHAZINE HCL) 25 Mg Tablet 1 TAB PO PRN Q6HRS PRN for VOMITING for 10 Days, #20 TAB Prov: TARIQ VILLEDA MD 04/29/21 Problem Qualifiers TARIQ VILLEDA MD Apr 29, 2021 11:40
[2021-04-29] MEDS ORDERED: IV NORMAL SALINE 1000ML BAG 1,000 ML IV ONE (11:45)
[2021-04-29] MEDS ORDERED: KETOROLAC 15 MG/ML VIAL. IVP ONE (11:45)
[2021-04-29] MEDS ORDERED: PROCHLORPERAZINE 10 MG/2 ML VIAL. IV ONE (11:45)
[2021-04-29] MEDS ORDERED: METOCLOPRAMIDE HCL 10 MG/2 ML VIAL. IVP ONE (11:45)
[2021-04-29] MEDS ORDERED: diphenhydrAMINE 50 MG/ML VIAL IVP ONE (11:45)
[2021-04-29 12:51] LABS: BASO # 0.1 x10^3/uL (0.0-0.2); BASO % 1 % (0-3); EOS # 0.2 x10^3/uL (0.0-0.7); EOS % 1 % (0-3); HEMATOCRIT 43.9 % (36.0-47.0); HEMOGLOBIN 15.3 g/dL (12.0-15.5); LYMPH # 4.1 x10^3/uL (1.0-4.8); LYMPH % 27 % (24-48); MEAN CORPUSCULAR HEMOGLOBIN 33 pg (25-35); MEAN CORPUSCULAR HGB CONC 35 g/dL (31-37); MEAN CORPUSCULAR VOLUME 96 fL (79-100); MONO # 1.3 x10^3/uL (0.0-1.1); MONO % 9 % (0-9); NEUT # 9.3 x10^3/uL (1.8-7.7); NEUT % 62 % (31-73); PLATELET COUNT 341 x10^3/uL (140-400); RED CELL DISTRIBUTION WIDTH 13.2 % (11.5-14.5); WHITE BLOOD COUNT 15.1 x10^3/uL (4.0-11.0)
[2021-04-29 12:59] LABS: CALCIUM 9.5 mg/dL (8.5-10.1); CREATININE 0.9 mg/dL (0.6-1.0); GFR 85.2; POTASSIUM 3.1 mmol/L (3.5-5.1)
[2021-04-29 13:05] LABS: ALBUMIN 4.3 g/dL (3.4-5.0); ALBUMIN/GLOBULIN RATIO 1.1 (1.0-1.7); TOTAL BILIRUBIN 0.9 mg/dL (0.2-1.0); TOTAL PROTEIN 8.1 g/dL (6.4-8.2)
[2021-04-29] MEDS ORDERED: POTASSIUM CHLORIDE 20 MEQ TABLET.ER. PO ONE (13:30)
[2021-04-29] MEDS ORDERED: PROM25TA10 PO (14:45)
== END 2021-04-29 14:46 | disposition home or self-care (01) ==
LOC: ER 10:19
DX: G43.909 Migraine, unspecified, not intractable, without status migrainosus (principal); G89.29 Other chronic pain; R10.9 Unspecified abdominal pain; I10 Essential (primary) hypertension; K21.9 Gastro-esophageal reflux disease without esophagitis; F17.200 Nicotine dependence, unspecified, uncomplicated; Z88.1 Allergy status to other antibiotic agents; Z88.5 Allergy status to narcotic agent
CPT/HCPCS: 36415; 80053; 83690; 85025; 96374; 96375; 99284; G0480; J0780; J1200; J1885

== ENCOUNTER 2021-08-13 09:16 | Emergency (ER) | payer OTHER ==
[~2021-08-13] VITALS: Ht 172.7 cm; Wt 125.0 kg
[~2021-08-13 09:16] MED LIST changes: +DICY20TA PO; -DICY20TA3 PO
[2021-08-13] MEDS ORDERED: LISINOPRIL 10 MG TABLET PO ONE (10:00)
[2021-08-13] MEDS ORDERED: ORPHENADRINE CITRATE 60 MG/2 ML VIAL. IM ONE (10:00)
[2021-08-13] MEDS ORDERED: KETOROLAC 60 MG/2 ML VIAL. IM ONE (10:00)
--- NOTE | 2021-08-13 10:35 | PHYS DOC ---
Past Medical History Past Medical History: GERD, Hypertension, Sickle Cell Disease Additional Past Medical Histor: CYCLIC VOMITING SYNDROME, OBESITY, chronic pain Past Surgical History: No Surgical History Additional Past Surgical Histo: EGD. Smoking Status: Current Every Day Smoker Alcohol Use: None Drug Use: Marijuana General Adult EDM: Chief Complaint: BACK PAIN - NO INJURY HPI: HPI: Patient is a 35 year old female past medical history of hypertension and chronic back pain who presents with 3 days of worsening low back pain. Patient rates her pain 10/10 low midline back pain radiating bilaterally to her sides. She reports she has chronic low back pain, but has never had soft tissue imaging. Typically, her pain worsens when she gets "really sick" due to cyclic vomiting. She denies any abdominal pain, nausea, vomiting today. She denies any injury or trauma leading to the exacerbation of her pain. When she "rocks her body," it improves her pain. Patient denies fever, chills, hematuria, dysuria, diarrhea, constipation, lower extremity paresthesias or weakness, saddle anesthesia, bowel or bladder incontinence. Patient denies IV drug use. Patient has not taken her blood pressure medications today. She states she takes lisinopril and hydrochlorothiazide, but is unaware of her doses. Review of Systems: Review of Systems: 12 systems reviewed. ROS negative except as mentioned in HPI. Heart Score: C/O Chest Pain: No Current Medications: Current Medications Medications (Trade) Dose Ordered Sig/[facility] Start Time Stop Time Status Last Admin Dose Admin Ketorolac Tromethamine (Toradol Im) 60 mg 1X ONCE 08/13/21 10:00 08/13/21 10:01 DC 08/13/21 10:13 60 MG Lisinopril (Prinivil) 20 mg 1X ONCE 08/13/21 10:00 08/13/21 10:01 DC 08/13/21 10:00 20 MG Orphenadrine Citrate (Norflex) 60 mg 1X ONCE 08/13/21 10:00 08/13/21 10:01 DC 08/13/21 10:13 60 MG Allergies: Allergies: Allergies Coded Allergies Type Severity Reaction Last Updated Verified metoclopramide HCl Allergy Intermediate 08/13/21 Yes morphine Allergy Intermediate 08/13/21 Yes Physical Exam: PE: Constitutional: Upon entering the room, patient is resting comfortably in exam bed. As we converse, she begins rocking in the bed and will not sit still. Patient is disheveled and obese. HENT: Normocephalic, atraumatic, bilateral external ears normal, oropharynx moist, no oral exudates, nose without obvious deformity or discharge. Eyes: PERRLA, EOMI, conjunctiva normal, no discharge. Neck: Normal range of motion, no step-offs, no midline tenderness, no paraspinal tenderness, supple. Cardiovascular: Heart rate regular rhythm, no murmur. Lungs & Thorax: Bilateral breath sounds clear to auscultation. Abdomen: Bowel sounds normal, soft, no tenderness, no masses, no pulsatile masses. Skin: Warm, moist secondary to mild diaphoresis, no erythema, no rash. Back: No step-offs, midline and paraspinal tenderness noted over low thoracic/high lumbar region, no CVA tenderness. Extremities: No tenderness, no cyanosis, no clubbing, ROM intact, no edema. Neurologic: Alert and oriented x4, motor function grossly intact, sensory function grossly intact, no focal deficits noted. Psychologic: Affect hyperactive, fair judgment, mood "I'm in so much pain." Current Patient Data: Labs: Laboratory Tests Test 08/13/21 10:28 Urine Collection Type Unknown Urine Color [place] Urine Clarity Cloudy Urine pH 5.5 (<5.0-8.0) Urine Specific [place] >=1.030 (1.000-1.030) Urine Protein 30 mg/dL (NEG-TRACE) Urine Glucose (UA) Negative mg/dL (NEG) Urine Ketones (Stick) Trace mg/dL (NEG) Urine Blood Negative (NEG) Urine Nitrite Negative (NEG) Urine Bilirubin Negative (NEG) Urine Urobilinogen Dipstick 0.2 mg/dL (0.2 mg/dL) Urine Leukocyte Esterase Small (NEG) Urine RBC 0 /HPF (0-2) Urine WBC 1-4 /HPF (0-4) Urine Squamous Epithelial Cells Many /LPF Urine Bacteria Few /HPF (0-FEW) Urine Hyaline Casts Occasional /HPF Urine Mucus Mod /LPF Urine Test Negative (NEG) Urine Opiates Screen Neg (NEG) Urine Methadone Screen Neg (NEG) Urine Barbiturates Neg (NEG) Urine Phencyclidine Screen Neg (NEG) Urine Amphetamine/Methamphetamine Neg (NEG) Urine Benzodiazepines Screen Neg (NEG) Urine Cocaine Screen Neg (NEG) Urine Cannabinoids Screen Pos (NEG) Urine Ethyl Alcohol Neg (NEG) Vital Signs: Vital Signs Date Time Temp Pulse Resp B/P (MAP) Pulse Ox O2 Delivery O2 Flow Rate FiO2 08/13/21 11:00 104 16 189/92 (124) 99 Room Air 08/13/21 10:00 118 230/105 08/13/21 09:30 98.7 118 16 230/105 (146) 99 Room Air 98.7 Radiology/Procedures: Radiology/Procedures: [] Course & Med Decision Making: Course & Med Decision Making Pertinent Labs and Imaging studies reviewed. (See chart for details) Patient work-up will include urinalysis as well as CT abdomen pelvis without contrast to evaluate for renal stones. Patient does have some bilateral muscle spasm, for which she was provided with ketorolac and Norflex in the department. Patient comes out of her exam room into the hallway multiple times in the 10-15 minutes following medication administration. Each time she is requesting additional pain medication. Both the nursing staff and myself advised her to give the medication time to take effect. Prior to imaging studies, patient eloped the department. She told radiology staff that she refused to have any imaging done until her "pain was under control." I did not have a chance to discuss risks with her or encouraged her to stay in the department prior to her elopement. Yesenia Disclaimer: Yesenia Disclaimer: This electronic medical record was generated, in whole or in part, using a voice recognition dictation system. Departure Departure Impression: Primary Impression: Eloped from emergency department Disposition: LEFT AWOL/ELOPED Condition: GUARDED Referrals: Umm LEMONS MD (PCP) SALBADOR AMAYA Aug 13, 2021 10:35
[2021-08-13 10:55] LABS: BILIRUBIN,URINE NEGATIVE (NEG); CLARITY,URINE CLOUDY; COLOR,URINE AMBER; NITRITE,URINE NEGATIVE (NEG); PH,URINE 5.5 (<5.0-8.0); PROTEIN,URINE 30 mg/dL (NEG-TRACE); UROBILINOGEN,URINE 0.2 mg/dL (0.2 mg/dL)
[2021-08-13 11:00] VITALS: BP 189/92
[2021-08-13 11:00] LABS: U PREG PATIENT NEGATIVE (NEG)
[2021-08-13 11:02] LABS: BARBITURATES NEG (NEG); BENZODIAZEPINES NEG (NEG); CANNABINOIDS POS (NEG); COCAINE NEG (NEG); METHADONE NEG (NEG); OPIATES NEG (NEG); PHENCYCLIDINE NEG (NEG)
[2021-08-13 11:04] LABS: AMPHETAMINE/METHAMPHETAMINE NEG (NEG)
[2021-08-13 11:40] LABS: BACTERIA,URINE FEW /HPF (0-FEW); HYALINE CASTS, URINE OCCASIONAL /HPF; RBC,URINE 0 /HPF (0-2)
== END 2021-08-13 11:28 | disposition left against medical advice (07) ==
LOC: ER 09:16
DX: M54.59 Other low back pain (principal); G89.29 Other chronic pain; K21.9 Gastro-esophageal reflux disease without esophagitis; I10 Essential (primary) hypertension; F17.200 Nicotine dependence, unspecified, uncomplicated; Z88.5 Allergy status to narcotic agent; Z88.8 Allergy status to other drugs, medicaments and biological substances
CPT/HCPCS: 80307; 81001; 81025; 87086; 96372; 99284; J1885; J2360

== ENCOUNTER 2021-10-16 12:58 | Emergency (ER) | payer OTHER ==
[~2021-10-16] VITALS: Ht 180.3 cm; Wt 118.0 kg
[2021-10-16 13:01] VITALS: BP 191/90
[2021-10-16] MEDS ORDERED: ORPHENADRINE CITRATE 60 MG/2 ML VIAL. IM ONE (13:15)
[2021-10-16] MEDS ORDERED: KETOROLAC 60 MG/2 ML VIAL. IM ONE (13:15)
--- NOTE | 2021-10-16 13:16 | PHYS DOC ---
Past Medical History Past Medical History: GERD, Hypertension, Sickle Cell Disease Additional Past Medical Histor: CYCLIC VOMITING SYNDROME, OBESITY, chronic pain Past Surgical History: Cholecystectomy, Tubal ligation Additional Past Surgical Histo: EGD. Smoking Status: Current Every Day Smoker Alcohol Use: None Drug Use: Marijuana General Adult EDM: Chief Complaint: BACK PAIN OR INJURY HPI: HPI: Patient is a 35-year-old female who presents to the emergency department for neck and back pain that started 30 minutes ago. Patient reports that she works at [id number] and she was on a three-step stepladder and she was coming down from the third step and twisted her back. She is reporting right-sided neck, thoracic back and lumbar back pain. She rates her pain 10 out of 10. No treatment prior to arrival. Patient denies any falls, head injury or loss of consciousness, dysuria or other urinary symptoms, loss of bowel or bladder or saddle anesthesias. Review of Systems: Review of Systems: Constitutional: negative unless reported in HPI Eyes: negative unless reported in HPI HENT: negative unless reported in HPI Respiratory: negative unless reported in HPI Cardiovascular: negative unless reported in HPI GI: negative unless reported in HPI : negative unless reported in HPI Musculoskeletal: negative unless reported in HPI Integument: negative unless reported in HPI Neurologic: negative unless reported in HPI Endocrine: negative unless reported in HPI Lymphatic: negative unless reported in HPI Psychiatric: negative unless reported in HPI Heart Score: C/O Chest Pain: N/A Risk Factors: Risk Factors: DM, Current or recent (<one month) smoker, HTN, HLP, family history of CAD, obesity. Risk Scores: Score 0 - 3: 2.5% MACE over next 6 weeks - Discharge Home Score 4 - 6: 20.3% MACE over next 6 weeks - Admit for Clinical Observation Score 7 - 10: 72.7% MACE over next 6 weeks - Early Invasive Strategies Allergies: Allergies: Allergies Coded Allergies Type Severity Reaction Last Updated Verified metoclopramide HCl Allergy Intermediate 08/13/21 Yes morphine Allergy Intermediate 08/13/21 Yes Physical Exam: PE: Constitutional: Well developed, well nourished, no acute distress, non-toxic appearance. [] HENT: Normocephalic, atraumatic, bilateral external ears normal, oropharynx moist, no oral exudates, nose normal. [] Eyes: PERRL, EOMI, conjunctiva normal, no discharge. [] Neck: Normal range of motion, no bony spinal tenderness, step-offs or deformities, right-sided paraspinal cervical tenderness with palpation, supple, no stridor. [] Cardiovascular: Normal peripheral perfusion Lungs & Thorax: Normal work of breathing, no tachypnea Abdomen: Soft and obese Skin: Warm, dry, no erythema, no rash. [] Back: No bony spinal tenderness, right sided paraspinal thoracic and lumbar tenderness with palpation, pain with range of motion Extremities: No tenderness, no cyanosis, no clubbing, ROM intact, no edema. [] Neurologic: Alert and oriented X 3, normal motor function, normal sensory function, no focal deficits noted. [] Psychologic: Affect normal, judgement normal, mood normal. [] Current Patient Data: Vital Signs: Vital Signs Date Time Temp Pulse Resp B/P (MAP) Pulse Ox O2 Delivery O2 Flow Rate FiO2 10/16/21 13:01 98.7 70 12 191/90 (123) Room Air 98.7 EKG: EKG: [] Radiology/Procedures: Radiology/Procedures: []REASON: right sided neck pain after falling off ladder PROCEDURE: THORACIC SPINE 3V EXAM: Cervical spine, 2 views; lumbar spine, 3 views; thoracic spine, 4 views. HISTORY: Fall. Pain. COMPARISON: None. FINDINGS: Cervical spine: 2 views of the cervical spinal obtained. There is degenerative endplate remodeling with disc space narrowing and spurring at C5-C6. There is no fracture. There is no listhesis. Thoracic spine: 4 views of the thoracic spine are obtained. There are mild superior endplate depressions at T5, T6 and T7. These are of uncertain chronicity. There is no listhesis. Lumbar spine: 3 views of the lumbar spine are obtained. There is mild lumbar scoliosis. There is grade 1 anterolisthesis of L5 on S1. There is minimal grade 1 anterolisthesis of L3 on L4. There is mild multilevel endplate remodeling. There is mild multilevel facet arthropathy. IMPRESSION: 1. Mild superior endplate depressions at T5, T6 and T7. These are of uncertain chronicity. Correlate for pain in this location. 2. Degenerative change involving the cervical spine, primarily at C5-C6. 3. Degenerative change involving the lumbar spine, described above. Electronically signed by: Mabel Rangel MD (10/16/2021 2:09 PM) [id number] DICTATED and SIGNED BY: MABEL RANGEL MD DATE: 10/16/21 [id number] 0 Course & Med Decision Making: Course & Med Decision Making Pertinent Labs and Imaging studies reviewed. (See chart for details) [] Patient presents to the emergency department for right-sided neck, thoracic and lumbar back pain after she twisted her body while stepping down from a stepladder. Patient denies falling off the ladder or injuring her head. She has no cauda equina symptoms. Imaging performed of patient's cervical, thoracic and lumbar spine which showed no acute finding but chronic degenerative changess. Patients chart reports a hx of sickle cell disease but patient reports that she does not have sickle cell and that is an error. Patient treated with Toradol and orphenadrine. Patient will be discharged home with a muscle relaxer and advised to take anti-inflammatory medications. Patient is reporting acid reflux. She states that she takes acid reflux medication and follows up with Feli Madrid regarding this. Patient did have an episode of vomiting while in the emergency department and this was treated with Zofran. Patient reports that she has Zofran prescriptions at home. Patient will also be given a GI cocktail. Patient advised to follow-up with Dr. Madrid for further management of her GERD. Prior to discharge patient is thrashing and throwing herself around in the bed so much that the mattress has come off of the bed frame. Patient is demanding to be admitted for her GERD. I notified patient that we typically do not admit for GERD symptoms and she needs to take her medication that Dr. Madrid prescribed for her and avoid foods that may exacerbate her symptoms. Patient has become aggressive towards ER staff and threatened to slap a intelligence clerk per ER nursing staff. I discussed patients case with supervising physician and we went to evaluate patient together and patient was seen ambulating from her room and into the archer with a steady gait and as soon as she saw us she bent over and grabbed her legs. Patient now tells me that she did not injure her back today at work and that she stepped down from a ladder but had no injury and her back pain is chronic and has been going on for 10 years. I told patient that she needs to contact Dr. Madrid regarding her GERD symptoms and management. Patient is upset and walked to the wheelchair and sat down. Patient has normal ROM and is ambulatory with a steady gait. I discussed with patient all findings and diagnostic testing as well as the need to follow-up with PCP for further evaluation and treatment or return to the ER if any new or worsening symptoms. Strict return precautions were also discussed at length. Patient voiced understanding and agreement with the plan. Patient is hemodynamically stable at the time of disposition. Dragon Disclaimer: Dragon Disclaimer: This electronic medical record was generated, in whole or in part, using a voice recognition dictation system. Departure Departure Impression: Primary Impression: Back pain Qualified Codes: M54.9 - Dorsalgia, unspecified Disposition: HOME / SELF CARE / HOMELESS Condition: GOOD Referrals: Umm MADRID MD (PCP) Patient Instructions: Back Pain, Adult, Diet for Gastroesophageal Reflux Disease, Adult Additional Instructions: You were seen in the emergency department today for neck and back pain after he twisted your body stepping down from a step ladder. Imaging was performed of yo ur neck and spine which showed no acute findings but you do have degenerative changes in your spine and changes in your spine associated with your sickle cell disease. You were treated with anti-inflammatory and muscle relaxers in the emergency department. Please continue to take anti-inflammatory medications at home like ibuprofen or naproxen. You are being discharged home with a muscle relaxer. Please take this as needed. This medication may cause sedation so do not take when you need to be alert, driving a vehicle or with alcohol. You can also apply ice. Please follow-up with Dr. Madrid regarding your GERD management. Please avoid any foods that may exacerbate your GERD symptoms. See attached information regarding this. Follow-up with your primary care provider within a week regarding your ER visit. Return to the emergency department if you develop worsening of your pain, loss of bowel or bladder, numbness or tingling in your groin or down your leg, intractable nausea or vomiting or any new or worsening concerns. Scripts Cyclobenzaprine Hcl (CYCLOBENZAPRINE HCL) 5 Mg Tablet 1 TAB PO TID for 7 Days, #21 TAB 0 Refills Prov: VENUS GALLEGOS APRN 10/16/21 VENUS GALLEGOS APRN Oct 16, 2021 13:16
--- NOTE | 2021-10-16 14:11 | RAD ---
EXAM: Cervical spine, 2 views; lumbar spine, 3 views; thoracic spine, 4 views. HISTORY: Fall. Pain. COMPARISON: None. FINDINGS: Cervical spine: 2 views of the cervical spinal obtained. There is degenerative endplate remodeling wi th disc space narrowing and spurring at C5-C6. There is no fracture. There is no listhesis. Thoracic spine: 4 views of the thoracic spine are obtained. There are mild superior endplate depressi ons at T5, T6 and T7. These are of uncertain chronicity. There is no listhesis. Lumbar spine: 3 views of the lumbar spine are obtained. There is mild lumbar scoliosis. There is grad e 1 anterolisthesis of L5 on S1. There is minimal grade 1 anterolisthesis of L3 on L4. There is mild multilevel endplate remodeling. There is mild multilevel facet arthropathy. IMPRESSION: 1. Mild superior endplate depressions at T5, T6 and T7. These are of uncertain chronicity. Correlate for pain in this location. 2. Degenerative change involving the cervical spine, primarily at C5-C6. 3. Degenerative change involving the lumbar spine, described above. Electronically signed by: Mabel Cantrell MD (10/16/2021 2:09 PM) [id number]
[2021-10-16] MEDS ORDERED: ONDANSETRON ODT 4 MG TAB.RAPDIS. PO ONE (14:15)
[2021-10-16] MEDS ORDERED: CYCL5TAB PO (14:21)
[2021-10-16] MEDS ORDERED: LIDO:MAALOX 1:1 20 ML SINGLE DOSE. SWSW ONE (14:30)
[2021-10-16] MEDS ORDERED: HYDROcodone/APAP 5/325MG 1 TAB TABLET PO ONE (14:45)
[2021-10-16] MEDS ORDERED: IV NORMAL SALINE 1000ML BAG 1,000 ML IV ONE (15:00)
== END 2021-10-16 15:00 | disposition home or self-care (01) ==
LOC: ER 12:58
DX: M54.6 Pain in thoracic spine (principal); M54.50 Low back pain, unspecified; M54.2 Cervicalgia; K21.9 Gastro-esophageal reflux disease without esophagitis; I10 Essential (primary) hypertension; G89.29 Other chronic pain; F17.200 Nicotine dependence, unspecified, uncomplicated; Z90.49 Acquired absence of other specified parts of digestive tract; Z98.51 Tubal ligation status; Z88.5 Allergy status to narcotic agent; Z88.8 Allergy status to other drugs, medicaments and biological substances
CPT/HCPCS: 72040; 72072; 72100; 96372; 99284; J1885; J2360

== ENCOUNTER 2021-12-01 05:01 | Emergency (ER) | payer OTHER ==
[~2021-12-01] VITALS: Ht 180.3 cm; Wt 118.2 kg
[~2021-12-01 05:01] MED LIST changes: +CYCL5TAB PO
[2021-12-01 05:11] VITALS: BP 164/98
--- NOTE | 2021-12-01 05:26 | PHYS DOC ---
Past Medical History Past Medical History: GERD, Hypertension Additional Past Medical Histor: CYCLIC VOMITING SYNDROME, OBESITY, chronic pain Past Surgical History: Cholecystectomy, Tubal ligation Additional Past Surgical Histo: EGD. Smoking Status: Current Every Day Smoker Alcohol Use: None Drug Use: Marijuana Adult General Chief Complaint Chief Complaint: GENERALIZED BODY ACHES HPI HPI The patient is a 36-year-old obese female with a history of hypertension, cyclic vomiting syndrome, GERD, chronic pain and marijuana use. She is a daily tobacco smoker as well. Contrary to prior documentation here, she does not appear to have sickle cell disease (patient states she was never treated for it when younger and states "I think so" when asked if she is simply a carrier of the sickle cell trait). Ms. Canales presents for evaluation of "all over body pain" with onset about 5 days ago. When asked to clarify she states that symptoms seem to have started with epigastric pain and pain in her chest, and have progressed from there. Associated nausea with numerous episodes of nonbloody vomiting over the past few days. Patient denies associated fevers, upper respiratory congestion/rhinorrhea, cough, sore throat, shortness of breath, right-sided or lower abdominal pain, flank pain, dysuria, hematuria, polyuria or oliguria, changes in bowel habits. Vital signs are appropriate here and the patient is in no acute distress. Review of Systems Review of Systems A 12 point review of systems was completed and was negative except where noted in HPI above. Current Medications Current Medications Current Medications Medications (Trade) Dose Ordered Sig/Benita Start Time Stop Time Status Last Admin Dose Admin Diphenhydramine HCl (Benadryl) 25 mg 1X ONCE 12/01/21 05:30 12/01/21 05:31 DC Haloperidol Lactate (Haldol Inj) 3.5 mg 1X ONCE 12/01/21 06:00 12/01/21 06:01 Ketorolac Tromethamine (Toradol 15mg Vial) 15 mg 1X ONCE 12/01/21 05:30 12/01/21 05:31 DC Sodium Chloride 1,000 ml @ 1,000 mls/hr 1X ONCE 12/01/21 05:30 12/01/21 06:29 Allergies Allergies Allergies Coded Allergies Type Severity Reaction Last Updated Verified metoclopramide HCl Allergy Intermediate 12/01/21 Yes morphine Allergy Intermediate 12/01/21 Yes Physical Exam Physical Exam 36-year-old female appearing nontoxic and in no acute distress. She appears anxious. Head is normocephalic and atraumatic. Neck is supple and nontender. Oropharynx is moist. Lungs are clear to auscultation at all stations. There is a normal S1 and S2 without rubs or gallops and capillary refill is appropriate, less than 2 seconds globally. Abdomen is soft and nondistended with mild focal epigastric tenderness to palpation without rebound or guarding. No right-sided or lower quadrant tenderness to palpation. No organomegaly. No pulsatile mass. Skin is warm and dry without cyanosis, clubbing or edema. Psychiatrically, the patient demonstrates appropriate mood and affect and is alert. Evaluation of the back reveals no erythema, warmth, swelling, step-offs, deformities or tenderness to palpation anywhere. Evaluation of the extremities reveals BUEs and BLEs neurovascularly intact distally with strength out of 5, sensation intact light touch in all nerve distributions, radial, DP and PT pulses 2+ and equal bilaterally, capillary refill less than 2 seconds, hands and feet warm and well-perfused. No dependent peripheral edema distally. No calf tenderness or swelling bilaterally. Yamilet's test is negative bilaterally. Current Patient Data Vital Signs Vital Signs Date Time Temp Pulse Resp B/P (MAP) Pulse Ox O2 Delivery O2 Flow Rate FiO2 12/01/21 05:11 97.9 108 24 164/98 (120) 97 Room Air 97.9 EKG EKG [] Radiology/Procedures Radiology/Procedures [] Course & Med Decision Making Course & Med Decision Making Well-appearing 36-year-old female with appropriate vital signs and generally reassuring clinical examination presents appearing very anxious for evaluation of "all over body pain." When actually queried as to her specific symptoms, overall presentation seems more consistent with a cyclic vomiting episode, with copious nonbloody vomiting, epigastric pain radiating up into the chest and anxiety. Will place IV and give IV fluids and medication for discomfort and nausea as noted and will then reevaluate. Will check labs, EKG and chest x-ray given location of discomfort, though strongly doubt cardiac etiology for presenting symptoms. Per prior documentation, patient seems to hospital hop. That holds true in this case; it appears that she presented to the [facility] ED 3 days ago for identical symptoms. Very extensive evaluation appears to have been without any evidence of acute process. Patient had cardiorespiratory labwork, EKG, chest x-ray and abdominopelvic CT completed at that time; all was unremarkable aside from a leukocytosis to 18k in the setting of active vomiting. Blood cultures obtained at that time show no growth to date. 0600: Transition of care to Dr. Lal pending work-up as noted, evaluation of response to therapy, and reevaluation for disposition. Dragon Disclaimer Dragon Disclaimer This electronic medical record was generated, in whole or in part, using a voice recognition dictation system. Departure Departure Impression: Primary Impression: Cyclical vomiting Condition: STABLE Referrals: Umm LEMONS MD (PCP) IVETTE MCCOLLUM MD Dec 01, 2021 05:26
[2021-12-01] MEDS ORDERED: diphenhydrAMINE 50 MG/ML VIAL IVP ONE (05:30)
[2021-12-01] MEDS ORDERED: KETOROLAC 15 MG/ML VIAL. IVP ONE (05:30)
[2021-12-01] MEDS ORDERED: IV NORMAL SALINE 1000ML BAG 1,000 ML IV ONE (05:30)
[2021-12-01] MEDS ORDERED: HALOPERIDOL LACTATE 5 MG/ML VIAL. IVP ONE ×2 (05:30→06:00)
== END 2021-12-01 06:25 | disposition left against medical advice (07) ==
LOC: ER 05:01
DX: R11.2 Nausea with vomiting, unspecified (principal); R19.7 Diarrhea, unspecified; R10.13 Epigastric pain; R07.89 Other chest pain; M79.10 Myalgia, unspecified site; G89.29 Other chronic pain; K21.9 Gastro-esophageal reflux disease without esophagitis; I10 Essential (primary) hypertension; Z90.49 Acquired absence of other specified parts of digestive tract; Z98.51 Tubal ligation status; Z72.0 Tobacco use; Z88.1 Allergy status to other antibiotic agents; Z88.5 Allergy status to narcotic agent
CPT/HCPCS: 99283